=== PATIENT | female | born 1980 | race Caucasian/White ===

== ENCOUNTER 2016-10-03 21:53 | Emergency (ER) | payer MEDICARE, OTHER ==
[2016-10-03] MEDS ORDERED: DIPH,PERTUS(ACELL)TETVAC-LF 0.5 ML VIAL IM ONE (22:18)
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
--- NOTE | 2016-10-03 22:43 | XR ---
RIGHT ANKLE, 3 VIEWS INDICATION: Right ankle pain COMPARISON: None. FINDINGS: AP, mortise, and lateral views of the right ankle are obtained. Bony structures are intact. Bone mineralization is within normal limits. Joint spaces are preserved. Lateral soft tissue swelling. No radio- opaque foreign bodies. IMPRESSION: 1. Lateral soft tissue swelling consistent with ankle sprain. 2. No acute fracture or subluxation identified.
[2016-10-03 23:14] VITALS: BP 116/65; PULSE 77; RESP 18; TEMP 98.7
--- NOTE | 2016-10-05 08:28 | CDI ---
Documentation Clarification OP Dear tere Ny MD, Please do addendum to ED report for splint appication document for ankle sprain. Thank you, sacha fletcher advertising coordinator. if you have any questions,please contact international sales manager at [phone]. [facility]
== END 2016-10-03 23:10 | disposition home or self-care (01) ==
LOC: EC 21:53
DX: S93.401A Sprain of unspecified ligament of right ankle, initial encounter (principal); S80.212A Abrasion, left knee, initial encounter; J45.909 Unspecified asthma, uncomplicated; F43.10 Post-traumatic stress disorder, unspecified; F32.9 Major depressive disorder, single episode, unspecified; F41.9 Anxiety disorder, unspecified; Z23 Encounter for immunization; Z87.891 Personal history of nicotine dependence; Z79.3 Long term (current) use of hormonal contraceptives; Z79.899 Other long term (current) drug therapy; Z88.0 Allergy status to penicillin; Z91.040 Latex allergy status; Z88.5 Allergy status to narcotic agent; Z88.8 Allergy status to other drugs, medicaments and biological substances; X50.9XXA Other and unspecified overexertion or strenuous movements or postures, initial encounter; Y92.410 Unspecified street and highway as the place of occurrence of the external cause
CPT/HCPCS: 90471; 90715; 96374; 99283; 99285

== ENCOUNTER 2017-07-31 21:37 | Emergency (ER) | payer MEDICARE, OTHER ==
--- NOTE | 2017-07-31 23:19 | XR ---
EXAMINATION TYPE: XR chest 2V DATE OF EXAM: 07/31/2017 COMPARISON: 01/11/2015 HISTORY: Cough TECHNIQUE: Frontal and lateral views of the chest are obtained. FINDINGS: Heart and mediastinum are normal. Lungs are clear. Costophrenic angles are clear. Bony tho rax is intact. IMPRESSION: No active cardiopulmonary disease. No change.
[2017-07-31] MEDS ORDERED: IPRATROPIUM-ALBUTEROL 3 ML NEB INHALATION STA (23:28)
[2017-07-31] MEDS ORDERED: CHLORPHEN-HYDROcod 8-10mg/5ml 5 ML ORAL.SYRG PO STA (23:28)
--- NOTE | 2017-07-31 23:31 | ED ---
URI HPI - General Chief Complaint: Upper Respiratory Infection Stated Complaint: cough/congestion Time Seen by Provider: 07/31/17 23:17 Source: patient, RN notes reviewed Mode of arrival: ambulatory Limitations: no limitations - History of Present Illness Initial Comments: 28-year-old female presented emergency Department chief complaint cough congestion. Patient states she's been sick over the last week. Patient went saw primary care physician on the weekend gave her a steroid shot, new asthma inhaler. Patient states that symptoms persist and not improving. Patient denies any known fever. Patient states that she had spiked a fever and chills at home. Patient states that she does have a history of asthma COPD states that she is a smoker states she several days ago. Patient denies any nausea vomiting. Patient denies any sick contacts denies any ear pain headache or dizziness. - Related Data Home Medications Medication Instructions Recorded Confirmed HYDROcodone/APAP 10-325MG [[place] 1 tab PO TID PRN 01/10/15 10/03/16 10-325] Biotin 5 mg PO DAILY 02/21/16 10/03/16 Cetirizine HCl [Zyrtec] 10 mg PO HS 02/21/16 10/03/16 Cholecalciferol [Vitamin D3] 1,000 unit PO DAILY 02/21/16 10/03/16 Flunisolide [Aerospan] 1 puff INHALATION RT-BID PRN 02/21/16 10/03/16 Ipratropium [place] [Atrovent Hfa] 1 puff INHALATION RT-BID PRN 02/21/16 Montelukast [Singulair] 10 mg PO DAILY 02/21/16 10/03/16 Pnv,Calcium 72/Iron/Folic Acid 1 tab PO DAILY 02/21/16 10/03/16 [ Plus Tablet] Gabapentin [Neurontin] 400 mg PO BID 10/03/16 10/03/16 Sertraline [Zoloft] 100 mg PO HS 10/03/16 10/03/16 busPIRone HCl [Buspar] 10 mg PO BID 10/03/16 10/03/16 Previous Rx's Medication Instructions Recorded Albuterol Inhaler [Ventolin Hfa 1 - 2 puff INHALATION RT-Q6H PRN #1 01/15/15 Inhaler] CHLORPHEN-HYDROcod 8-10mg/5ml 5 ml PO Q12HR #100 ml 08/01/17 [Tussionex] predniSONE 50 mg PO DAILY #5 tab 08/01/17 Allergies Allergy/AdvReac Type Severity Reaction Status Date / Time amitriptyline HCl Allergy ANXIETY Verified 07/31/17 22:16 [From Elavil] amoxicillin Allergy Rash/Hives Verified 07/31/17 22:16 latex Allergy Rash/Hives Verified 07/31/17 22:16 codeine AdvReac Chest Pain Verified 07/31/17 22:16 Review of Systems ROS Statement: Those systems with pertinent positive or pertinent negative responses have been documented in the HPI. ROS Other: All systems not noted in ROS Statement are negative. Past Medical History Past Medical History: Asthma, COPD History of Any Multi-Drug Resistant Organisms: MRSA Date of last positivie culture/infection: 2007 MDRO Source:: ears Past Surgical History: Orthopedic Surgery, Tonsillectomy Additional Past Surgical History / Comment(s): right ankle sx x 2, deviated septum procedure Past Anesthesia/Blood Transfusion Reactions: No Reported Reaction Past Psychological History: Anxiety, Depression, PTSD Smoking Status: Former smoker Past Alcohol Use History: None Reported Past Drug Use History: None Reported - Past Family History Sister(s) Family Medical History: Asthma Father Family Medical History: Congestive Heart Failure (CHF) General Exam Limitations: no limitations General appearance: alert, in no apparent distress Head exam: Present: atraumatic, normocephalic, normal inspection Eye exam: Present: normal appearance, PERRL, EOMI. Absent: scleral icterus, conjunctival injection, periorbital swelling ENT exam: Present: normal exam, normal oropharynx, mucous membranes moist, TM's normal bilaterally, normal external ear exam Neck exam: Present: normal inspection, full ROM. Absent: tenderness, meningismus, lymphadenopathy Respiratory exam: Present: normal lung sounds bilaterally. Absent: respiratory distress, wheezes, rales, rhonchi, stridor Cardiovascular Exam: Present: regular rate, normal rhythm, normal heart sounds. Absent: systolic murmur, diastolic murmur, rubs, gallop, clicks GI/Abdominal exam: Present: soft, normal bowel sounds. Absent: distended, tenderness, guarding, rebound, rigid Course Vital Signs 04/10/18 04/10/18 04/10/18 22:11 23:26 23:35 Temperature 98.4 F Pulse Rate 89 88 Respiratory 20 20 Rate Blood Pressure 135/81 O2 Sat by Pulse 97 Oximetry Medical Decision Making - Medical Decision Making 36-year-old female presented for cough congestion. Patient has a restaurant infection with acute asthma exacerbation. Patient is stable for discharge that she be given Solu-Medrol nausea be discharged on prednisone 50 mg for 5 days and cough suppressant. Patient will follow-up for recheck and return for any worsening symptoms. - Lab Data Lab Results 07/31/17 Range/Units 23:20 Influenza Type A RNA Not Detected (Not Detectd) Influenza Type B (PCR) Not Detected (Not Detectd) Disposition Clinical Impression: Asthmatic bronchitis, Costochondritis, acute Disposition: HOME SELF-CARE Condition: Stable Instructions: Upper Respiratory Infection (ED) Additional Instructions: Please return to the Emergency Department if symptoms worsen or any other concerns. Prescriptions: CHLORPHEN-HYDROcod 8-10mg/5ml [Tussionex] 5 ml PO Q12HR #100 ml predniSONE 50 mg PO DAILY #5 tab Referrals: Raegan Herr DO [Primary Care Provider] - 1-2 days Time of Disposition: 00:02
[2017-08-01] MEDS ORDERED: methylPREDNISolone SOD SUCCI 125 MG/2 ML VIAL IM ONE
[2017-08-01 00:41] VITALS: BP 132/78; PULSE 92; RESP 18; TEMP 98.6
== END 2017-08-01 00:39 | disposition home or self-care (01) ==
LOC: EC 21:37
DX: M94.0 Chondrocostal junction syndrome [Tietze] (principal); J45.901 Unspecified asthma with (acute) exacerbation; R11.0 Nausea; F41.9 Anxiety disorder, unspecified; F32.9 Major depressive disorder, single episode, unspecified; F43.10 Post-traumatic stress disorder, unspecified; Z86.14 Personal history of Methicillin resistant Staphylococcus aureus infection; Z82.5 Family history of asthma and other chronic lower respiratory diseases; Z86.79 Personal history of other diseases of the circulatory system; Z87.891 Personal history of nicotine dependence; Z88.0 Allergy status to penicillin; Z88.5 Allergy status to narcotic agent; Z88.8 Allergy status to other drugs, medicaments and biological substances; Z79.899 Other long term (current) drug therapy; Z91.040 Latex allergy status; Z98.890 Other specified postprocedural states
CPT/HCPCS: 94640; 93005; 87502; 71046; 99284; 96372; J2930

== ENCOUNTER → 2017-09-21 | Outpatient (CLI) | payer MEDICARE, OTHER ==
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
== END ==
LOC: RADMRIMAIN 20:13
PROVIDERS: ATTEND Psychiatry & Neurology Pain Medicine
DX: M48.061 Spinal stenosis, lumbar region without neurogenic claudication (principal); M51.36 Other intervertebral disc degeneration, lumbar region; M51.26 Other intervertebral disc displacement, lumbar region; M51.37 Other intervertebral disc degeneration, lumbosacral region; Z88.5 Allergy status to narcotic agent; Z88.0 Allergy status to penicillin; Z88.8 Allergy status to other drugs, medicaments and biological substances
CPT/HCPCS: 72148

== ENCOUNTER → 2017-10-19 | Outpatient (CLI) | payer MEDICARE, OTHER ==
--- NOTE | 2017-10-22 07:48 | MM ---
Reason for exam: clinical finding. History: Took hormonal contraceptives beginning at age 11. Indicated problem(s): pain in both breasts. Physical Findings: Nurse did not find any significant physical abnormalities on exam. MG 3D Diag Mammo W/Cad DONNA Bilateral CC and MLO view(s) were taken. The breast tissue is heterogeneously dense. This may lower the sensitivity of mammography. Finding: There are typically benign round calcifications in the left breast. There is no discrete abnormality. These results were verbally communicated with the patient and result sheet given to the patient on 10/19/17. ASSESSMENT: Benign, BI-RAD 2 RECOMMENDATION: Routine screening mammogram of both breasts in 1 year.
== END | disposition home or self-care (01) ==
LOC: RADMAMWWP 13:43
PROVIDERS: ATTEND Family Medicine
DX: N64.4 Mastodynia (principal)
CPT/HCPCS: 77066; G0279; 77062

== ENCOUNTER 2018-03-28 18:18 | Emergency (ER) | payer MEDICARE, OTHER ==
[2018-03-28 18:28] VITALS: RESP 16
--- NOTE | 2018-03-28 19:44 | ED ---
General Adult HPI - General Chief complaint: Recheck/Abnormal Lab/Rx Stated complaint: POSS , SENT BY MED EX Source: patient, RN notes reviewed, old records reviewed Mode of arrival: ambulatory Limitations: no limitations - History of Present Illness Initial comments: 37-year-old female patient with no pertinent past medical history presents to ED for test. Patient states that she took 7 tests at home which are positive, [facility] took to test which are negative. Patient presents to ED to confirm . Patient denies all other complaints. Patient denies abdominal pain, nausea vomiting diarrhea, vaginal discharge, vaginal bleeding, shortness of breath, chest pain. Patient denies recent falls or trauma. Systemic: Pt denies fatigue, myalgia, fever/chills, rash. Pt denies weakness, night sweats, weight loss. Neuro: Pt denies headache, visual disturbances, syncope or pre-syncope. HEENT: Pt denies ocular discharge or irritation, otalgia, rhinorrhea, pharyngitis or notable lymphadenopathy. Cardiopulmonary: Pt denies chest pain, SOB, heart palpitations, dyspnea on exertion. Abdominal/GI: Pt denies abdominal pain, n/v/d. : Pt denies dysuria, burning w/ urination, frequency/urgency. Denies new onset urinary or bowel incontinence. MSK: Pt denies myalgia, loss of strength or function in extremities. Neuro: Pt denies new onset weakness, paresthesias. - Related Data Home Medications Medication Instructions Recorded Confirmed HYDROcodone/APAP 10-325MG [[place] 1 tab PO TID PRN 01/10/15 10/03/16 10-325] Biotin 5 mg PO DAILY 02/21/16 10/03/16 Cetirizine HCl [Zyrtec] 10 mg PO HS 02/21/16 10/03/16 Cholecalciferol [Vitamin D3] 1,000 unit PO DAILY 02/21/16 10/03/16 Flunisolide [Aerospan] 1 puff INHALATION RT-BID PRN 02/21/16 10/03/16 Ipratropium [place] [Atrovent Hfa] 1 puff INHALATION RT-BID PRN 02/21/16 Montelukast [Singulair] 10 mg PO DAILY 02/21/16 10/03/16 Pnv,Calcium 72/Iron/Folic Acid 1 tab PO DAILY 02/21/16 10/03/16 [ Plus Tablet] Gabapentin [Neurontin] 400 mg PO BID 10/03/16 10/03/16 Sertraline [Zoloft] 100 mg PO HS 10/03/16 10/03/16 busPIRone HCl [Buspar] 10 mg PO BID 10/03/16 10/03/16 Previous Rx's Medication Instructions Recorded Albuterol Inhaler [Ventolin Hfa 1 - 2 puff INHALATION RT-Q6H PRN #1 01/15/15 Inhaler] CHLORPHEN-HYDROcod 8-10mg/5ml 5 ml PO Q12HR #100 ml 08/01/17 [Tussionex] predniSONE 50 mg PO DAILY #5 tab 08/01/17 Allergies Allergy/AdvReac Type Severity Reaction Status Date / Time amitriptyline HCl Allergy ANXIETY Verified 03/28/18 18:28 [From Elavil] amoxicillin Allergy Rash/Hives Verified 03/28/18 18:28 latex Allergy Rash/Hives Verified 03/28/18 18:28 codeine AdvReac Chest Pain Verified 03/28/18 18:28 Review of Systems ROS Statement: Those systems with pertinent positive or pertinent negative responses have been documented in the HPI. ROS Other: All systems not noted in ROS Statement are negative. Past Medical History Past Medical History: Asthma, COPD History of Any Multi-Drug Resistant Organisms: MRSA Date of last positivie culture/infection: 2007 MDRO Source:: ears Past Surgical History: Orthopedic Surgery, Tonsillectomy Additional Past Surgical History / Comment(s): right ankle sx x 2, deviated septum procedure Past Anesthesia/Blood Transfusion Reactions: No Reported Reaction Past Psychological History: Anxiety, Depression, PTSD Smoking Status: Former smoker Past Alcohol Use History: None Reported Past Drug Use History: None Reported - Past Family History Sister(s) Family Medical History: Asthma Father Family Medical History: Congestive Heart Failure (CHF) General Exam - General Exam Comments Initial Comments: Constitutional: NAD, AOX3, Pt has pleasant affect. HEENT: NC/AT, trachea midline, neck supple, no lymphadenopathy. Posterior pharynx non erythematous, without exudates. External ears appear normal, without discharge. Mucous membranes moist. Eyes PERRLA, EOM intact. There is no scleral icterus. No pallor noted. Cardiopulmonary: RRR, no murmurs, rubs or gallops, no JVD noted. Lungs CTAB in anterior and posterior lay. No peripheral edema. Abdominal exam: Abdomen soft and non-distended. Abdomen non-tender to palpation in all 4 quadrants. Bowel sounds active in LLQ. No hepatosplenomegaly. No ecchymosis Neuro: CN II-XII grossly intact. No nuchal rigidity. MSK: No posterior calf tenderness bilaterally, homans sign negative bilaterally. Posterior tibialis and radial pulse +2 bilaterally. Limitations: no limitations Course Vital Signs 03/28/18 03/28/18 18:25 20:23 Temperature 98.3 F 97.9 F Pulse Rate 109 H 85 Respiratory 16 16 Rate Blood Pressure 148/83 138/72 O2 Sat by Pulse 98 97 Oximetry Medical Decision Making - Medical Decision Making 37-year-old female patient presents to ED for test. Patient other complaints. Physical exam did not reveal any acute pathology. UA and hCG confirmed , patient does not have any UTI. Patient states that she has an OB that she can follow-up with. Patient to follow up with PCP in 1-2 days. Patient to return to ED if any new signs or symptoms develop including abdominal pain, nausea vomiting diarrhea, fever or chills, vaginal bleeding, vaginal discharge, any other symptoms. Case discussed with Dr. Rao. - Lab Data Lab Results 03/28/18 03/28/18 Range/Units 18:43 18:43 Urine Color Yellow Urine Appearance Clear (Clear) Urine pH 5.5 (5.0-8.0) Ur Specific [place] 1.014 (1.001-1.035) Urine Protein Trace H (Negative) Urine Glucose (UA) Negative (Negative) Urine Ketones 1+ H (Negative) Urine Blood Negative (Negative) Urine Nitrite Negative (Negative) Urine Bilirubin Negative (Negative) Urine Urobilinogen <2.0 (<2.0) mg/dL Ur Leukocyte Esterase Trace H (Negative) Urine RBC 1 (0-5) /hpf Urine WBC 1 (0-5) /hpf Ur Squamous Epith Cells 2 (0-4) /hpf Urine Bacteria Rare H (None) /hpf Urine HCG, Qual Detected (Not Detectd) Disposition Clinical Impression: Disposition: HOME SELF-CARE Condition: Good Instructions: (ED) Additional Instructions: Patient to adhere to previously discussed treatment plan and will take medication(s) as directed. Patient to follow up with PCP in 1-2 days. Patient to return to ED if symptoms do not improve. Is patient prescribed a controlled substance at d/c from ED?: No Referrals: Raegan Herr DO [Primary Care Provider] - 1-2 days Time of Disposition: 20:14
[2018-03-28 19:52] LABS: Appearance,Urine Clear (Clear); Bacteria,Urine Rare /hpf; Bilirubin,Urine Negative (Negative); Blood,Urine Negative (Negative); Color,Urine Yellow; Glucose,Urine (UA) Negative (Negative); Ketones,Urine 1+ (Negative); Leukocyte Esterase,Urine Trace (Negative); Nitrite,Urine Negative (Negative); PH, Urine 5.5 (5.0-8.0); Protein,Urine Trace (Negative); RBC,Urine 1 /hpf (0-5); Specific Gravity,Urine 1.014 (1.001-1.035); Squamous Epithelial Cell,Urine 2 /hpf (0-4); Urobilinogen,Urine <2.0 mg/dL (<2.0)
[2018-03-28 20:23] VITALS: BP 138/72; PULSE 85; TEMP 97.9
== END 2018-03-28 20:23 | disposition home or self-care (01) ==
LOC: EC 18:18
DX: Z32.01 Encounter for pregnancy test, result positive (principal); J44.9 Chronic obstructive pulmonary disease, unspecified; F32.9 Major depressive disorder, single episode, unspecified; F41.9 Anxiety disorder, unspecified; F43.10 Post-traumatic stress disorder, unspecified; Z86.14 Personal history of Methicillin resistant Staphylococcus aureus infection; Z87.891 Personal history of nicotine dependence; Z79.899 Other long term (current) drug therapy; Z88.0 Allergy status to penicillin; Z88.5 Allergy status to narcotic agent; Z88.8 Allergy status to other drugs, medicaments and biological substances; Z91.040 Latex allergy status
CPT/HCPCS: 81001; 81025; 99282

== ENCOUNTER 2018-11-11 15:24 | Outpatient (CLI) | payer MEDICARE, OTHER ==
[2018-11-11] MEDS ORDERED: ACETAMINOPHEN TAB 325 MG TAB PO STA (16:05)
[2018-11-11 16:27] VITALS: BP 111/62; PULSE 82; RESP 16; TEMP 97.7
[2018-11-11 16:28] LABS: Appearance,Urine Clear (Clear); Bacteria,Urine Occasional /hpf; Bilirubin,Urine Negative (Negative); Blood,Urine Negative (Negative); Color,Urine Yellow; Glucose,Urine (UA) Negative (Negative); Ketones,Urine Negative (Negative); Leukocyte Esterase,Urine Moderate (Negative); Mucus,Urine Rare /hpf; Nitrite,Urine Negative (Negative); PH, Urine 6.5 (5.0-8.0); Protein,Urine Negative (Negative); RBC,Urine 1 /hpf (0-5); Specific Gravity,Urine 1.009 (1.001-1.035); Squamous Epithelial Cell,Urine 2 /hpf (0-4); Urobilinogen,Urine <2.0 mg/dL (<2.0)
--- NOTE | 2018-12-08 11:23 | P.MSEPDOC ---
Presenting Problems - Arrival Data Date of Arrival on Unit: 11/11/18 Time of Arrival on Unit: 15:24 Mode of Transport: Ambulatory - Complaint OB-Reason for Admission/Chief Complaint: Pain Comment: lower back pain, constant for 1 day, general malaise Medical History - Information : 3 Para: 2 Term: 2 : 0 Abortions: Spontaneous or Elective: 0 Number of Living Children: 1 - Gestational Age Gestational Age by SRIDHAR (wks/days): 36 Weeks and 4 Days Review of Systems - Review of Systems Constitutional: No problems Breast: No problems ENT: No problems Cardiovascular: No problems Respiratory: No problems Gastrointestinal: No problems Genitourinary: No problems Musculoskeletal: No problems Neurological: No problems Skin: No problems Vital Signs - Temperature Temperature: 97.7 F Temperature Source: Temporal Artery Scan - Pulse Right Brachial Pulse Rate: 82 Pulse Assessment Method: Automatic Cuff - Respirations Respiratory Rate: 16 Oxygen Delivery Method: Room Air O2 Sat by Pulse Oximetry: 96 - Blood Pressure Right Arm Sitting Blood Pressure: 111/62 Blood Pressure Mean: 78 Blood Pressure Source: Automatic Cuff Medical Screen Scoring (Pre) - Cervical Exam Dilation: 1-3 cm = 1 Effacement: More than 50% = 2 Membranes: Intact - Uterine Contractions Frequency: N/A Duration: N/A Intensity: N/A - Maternal Vital Signs Maternal Temperature: N/A Signs of Preeclampsia: N/A, Headache = 1 Maternal Respirations: N/A - Maternal Trauma Maternal Trauma: N/A - Assessment - Baby A Baseline FHR: 130 Heart Rate - NICHD Category: Category I (Normal) = 0 NST: Reactive Position: N/A Station: N/A - Total Score - Baby A Total Score - Baby A: 4 - Total Score - Baby B Total Score - Baby B: 4 - Total Score - Baby C Total Score - Baby C: 4 - Level of Risk - Baby A Level of Risk - Baby A: Low (0-5) - Level of Risk - Baby B Level of Risk - Baby B: Low (0-5) - Level of Risk - Baby C Level of Risk - Baby C: Low (0-5) Medical Screen Scoring (Post) - Uterine Contractions Frequency: N/A - Assessment - Baby A Heart Rate: 120 Heart Rate - NICHD Category: Category I (Normal) = 0 NST: Reactive Position: N/A Station: N/A - Total Score Total Score - Baby A: 0 Total Score - Baby B: 0 Total Score - Baby C: 0 - Post Treatment Level of Risk Post Treatment Level of Risk - Baby A: Low (0-5) Post Treatment Level of Risk - Baby B: Low (0-5) Post Treatment Level of Risk - Baby C: Low (0-5) Physician Notification (Post) - Physician Notified Physician Notified Date: 11/11/18 Physician Notified Time: 17:11 Spoke With: Codey New Order Received: Yes (d/c with antibiotic) - Notification Comment Comment: sent UA, possible UTI, escribe abx to [facility] pharmacy,pt discharged, has routine appt tomorrow Disposition - Disposition OB Disposition: Discharge to home, Written follow up instructions reviewed Discharge Date: 11/11/18 Discharge Time: 17:15 I agree with the RN Medical Screening Exam: Yes Risk & Benefit of care provided described in d/c instruction: Yes Diagnosis: URINARY TRACT INFECTION, SITE NOT SPECIFIED
== END 2018-11-11 17:15 | disposition home or self-care (01) ==
LOC: FBPOP 15:24
PROVIDERS: ATTEND Obstetrics & Gynecology
DX: O23.43 Unspecified infection of urinary tract in pregnancy, third trimester (principal); Z3A.36 36 weeks gestation of pregnancy
CPT/HCPCS: 59025; 81001; G0463; 99213

== ENCOUNTER 2018-12-03 06:06 | Inpatient (IN) | payer MEDICARE, OTHER ==
[2018-12-03] MEDS ORDERED: METHYLERGONOVINE 0.2 MG/ML 1 ML AMP IM PRN (06:22)
[2018-12-03] MEDS ORDERED: CARBOPROST TROMETHAMINE 250 MCG/ML 1 ML AMP IM PRN (06:22)
[2018-12-03] MEDS ORDERED: TERBUTALINE 1 MG/ML VIAL SQ PRN (06:22)
[2018-12-03] MEDS ORDERED: OXYTOCIN 10 UNIT/ML 1 ML VIAL IM PRN (06:22)
[2018-12-03] MEDS ORDERED: LIDOCAINE 0.5% (PF) 5 MG/ML (50 ML SDV) SQ PRN (06:22)
[2018-12-03] MEDS ORDERED: OXYTOCIN 30 UNITS/500 ML NS 30 UNIT in SALINE 1 500ML.BAG IV SCH (06:30)
[2018-12-03] MEDS ORDERED: LACTATED RINGERS 1,000 ML IV SCH (06:30)
[2018-12-03 06:44] VITALS: BMI 31.5
[2018-12-03 06:50] LABS: Basophils % (A) 0 %; Eosinophils # (A) 0.2 k/uL (0-0.7); Eosinophils % (A) 2 %; HCT 33.6 % (34.0-46.0); HGB 11.1 gm/dL (11.4-16.0); Lymphocytes # (A) 2.4 k/uL (1.0-4.8); Lymphocytes % (A) 25 %; MCH 29.1 pg (25.0-35.0); MCHC 32.9 g/dL (31.0-37.0); MCV 88.4 fL (80.0-100.0); Mean Platelet Volume 10.3; Monocytes # (A) 0.4 k/uL (0-1.0); Monocytes % (A) 4 %; Neutrophils # (A) 6.2 k/uL (1.3-7.7); Neutrophils % (A) 66 %; Platelet Count 181 k/uL (150-450); RDW 15.6 % (11.5-15.5); WBC 9.3 k/uL (3.8-10.6)
[2018-12-03] MEDS ORDERED: CLINDAMYCIN 900 MG in DEXTROSE 5% IN WATER 50 ML IVPB STA ×2 (06:59)
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
--- NOTE | 2018-12-03 10:32 | P.PROBDLV ---
Vaginal Delivery Note - . Vaginal Delivery Note: Findings: Male infant in the vertex right occiput anterior position with Apgars of 9 at 1 minute and 9 at 5 minutes. Weight pending. Intact, three-vessel cord placenta. No perineal lacerations. EBL 150 mL's. Delivery summary: This is a 38-year-old 3 para 2012 woman who was admitted at 39-4/7 weeks' gestation with advanced cervical dilation not in active labor. Pitocin induction of labor was initiated and she underwent artificial rupture of membranes. She was approximately 5-1/2 cm at 8 AM. She progressed rapidly to complete cervical dilation by approximately 10:15 AM. She had strong and uncontrollable urge to push. She was repositioned in the m odified Lelia position with the bed intact as she was pushing. She did push to from the right occiput anterior position. The anterior followed by the posterior shoulders were delivered without difficulty. The rest the infant was delivered onto the field. The nose and mouth were bulb suctioned and the was placed on the maternal abdomen. On after a slight delay the cord was clamped and cut. Apgars were 9 at 1 minute and 9 at 5 minutes. The perineum vagina and cervix were inspected and no lacerations were noted after delivery of an intact, three-vessel cord placenta. The third stage of labor was rapid approximately 2 minutes. The uterus was massaged and was noted to be firm at the level of the umbilicus. The patient received Pitocin following delivery of the placenta. All counts were correct and mother and were doing well post delivery in the room.
[2018-12-03] MEDS ORDERED: ZOLPIDEM 5 MG TAB PO PRN (10:33)
[2018-12-03] MEDS ORDERED: diphenhydrAMINE 50 MG/ML 1 ML VIAL IVP PRN ×2 (10:33)
[2018-12-03] MEDS ORDERED: diphenhydrAMINE 25 MG CAP PO PRN (10:33)
[2018-12-03] MEDS ORDERED: WITCH HAZEL 1 EACH MED..PAD TOPICAL PRN (10:33)
[2018-12-03] MEDS ORDERED: HYDROCORTISONE 2.5% RECTAL CREAM 30 GM TUBE RECTAL PRN (10:33)
[2018-12-03] MEDS ORDERED: SIMETHICONE 80 MG CHEWABLE PO PRN (10:33)
[2018-12-03] MEDS ORDERED: LANOLIN CREAM 5 GM TUBE TOPICAL PRN (10:33)
[2018-12-03] MEDS ORDERED: diphenhydrAMINE 50 MG CAP PO PRN (10:33)
[2018-12-03] MEDS ORDERED: BENZOCAINE/MENTHOL SPRAY 1 GM/SPRAY AEROSOL TOPICAL PRN (10:33)
[2018-12-03] MEDS ORDERED: OXYTOCIN 20 UNITS/1000 ML NS 1,000 ML IV SCH (10:45)
[2018-12-03] MEDS: IBUPROFEN 600 MG TAB PO PRN ×2 (14:12→19:59)
[2018-12-04] MEDS: SENNOSIDES-DOCUSATE SODIUM 1 EACH TAB PO SCH ×2 (03:31→21:16)
[2018-12-04] MEDS: CLINDAMYCIN 900 MG in DEXTROSE 5% IN WATER 50 ML IVPB SCH ×2 (03:31)
--- NOTE | 2018-12-04 07:43 | P.PNOBGVD ---
Subjective - Subjective Principal diagnosis: day 1 Interval history: Feeling very well, minimal lochia. Patient reports: Reports appetite normal, Reports voiding normally, Reports pain well controlled, Reports ambulating normally, Denies nauseated : doing well, nursing well Objective - Latest Vital Signs Latest vital signs: Vital Signs Temp Pulse Resp BP Pulse Ox 12/04/18 04:00 98.2 F 75 16 101/70 12/04/18 00:00 96.7 F L 71 16 91/52 12/03/18 20:00 98.4 F 75 16 109/72 12/03/18 16:00 98.4 F 82 18 118/69 95 12/03/18 12:32 73 18 117/72 12/03/18 12:02 75 18 115/68 12/03/18 12:00 75 18 115/68 12/03/18 11:32 71 18 124/71 12/03/18 11:17 71 20 125/64 12/03/18 11:02 77 18 115/58 12/03/18 10:47 91 18 144/77 12/03/18 10:32 98.2 F 81 18 121/65 96 - Exam Extremities: Present: normal, edema Abdomen: Present: normal appearance, soft. Absent: tenderness Uterus: Present: normal, firm Assessment and Plan (1) 39 weeks gestation of Current Visit: Yes Status: Acute Code(s): Z3A.39 - 39 WEEKS GESTATION OF SNOMED Code(s): 51382331 (2) Advanced maternal age (AMA) in Current Visit: Yes Status: Acute Code(s): FNH4009 - SNOMED Code(s): 054290978 (3) GBS (group B Streptococcus carrier), +RV culture, currently Current Visit: Yes Status: Acute Code(s): O99.820 - STREPTOCOCCUS B CARRIER STATE COMPLICATING SNOMED Code(s): 5299849271008 (4) Tobacco abuse Current Visit: Yes Status: Acute Code(s): Z72.0 - TOBACCO USE SNOMED Code(s): 846320049 (5) Asthma Current Visit: Yes Status: Acute Code(s): J45.909 - UNSPECIFIED ASTHMA, UNCOMPLICATED SNOMED Code(s): 281986466 (6) Normal spontaneous vaginal delivery Current Visit: Yes Status: Acute Code(s): O80 - ENCOUNTER FOR FULL-TERM UNCOMPLICATED DELIVERY SNOMED Code(s): 08540463 Plan: day #1 status post normal spontaneous vaginal delivery. Patient is recovering well. Anticipate discharge home tomorrow. Infant is being monitored for maternal group B strep status positive for 48 hours.
[2018-12-04] MEDS: IBUPROFEN 600 MG TAB PO PRN ×3 (07:48→23:03)
[2018-12-04 08:31] LABS: Anisocytosis Slight; Basophils % (A) 0 %; Eosinophils # (A) 0.2 k/uL (0-0.7); Eosinophils % (A) 2 %; Hypochromasia Slight; Lymphocytes # (A) 2.3 k/uL (1.0-4.8); Lymphocytes % (A) 23 %; MCHC 32.3 g/dL (31.0-37.0); MCV 89.8 fL (80.0-100.0); Mean Platelet Volume 10.3; Monocytes # (A) 0.3 k/uL (0-1.0); Monocytes % (A) 3 %; Neutrophils # (A) 6.9 k/uL (1.3-7.7); Neutrophils % (A) 70 %; Platelet Count 193 k/uL (150-450); RBC 3.23 m/uL (3.80-5.40); WBC 9.9 k/uL (3.8-10.6)
[2018-12-04 08:40] LABS: HGB 9.4 gm/dL (11.4-16.0)
[2018-12-05] MEDS: ACETAMINOPHEN TAB 325 MG TAB PO PRN ×3 (03:44→16:46)
--- NOTE | 2018-12-05 08:25 | P.DS ---
Providers Date of admission: 12/03/18 06:06 Expected date of discharge: 12/05/18 Attending physician: Susan Alegre Primary care physician: Stated None - Discharge Diagnosis(es) (1) 39 weeks gestation of Current Visit: Yes Status: Acute (2) Advanced maternal age (AMA) in Current Visit: Yes Status: Acute (3) GBS (group B Streptococcus carrier), +RV culture, currently Current Visit: Yes Status: Acute (4) Tobacco abuse Current Visit: Yes Status: Acute (5) Asthma Current Visit: Yes Status: Acute (6) Normal spontaneous vaginal delivery Current Visit: Yes Status: Acute Hospital Course: This is a 38-year-old 3 now para 3 woman who was admitted at 39+ weeks gestation with advanced cervical dilation for induction of labor. On admission she was 5+ centimeters dilated and underwent Pitocin induction of labor with artificial rupture of membranes. She had a rapid progression to complete cervical dilation and an uncomplicated delivery of a liveborn male weighing 8 lbs. 7 oz. over an intact perineum. Apgars were 9 at 1 minute and 9 at 5 minutes. Patient was group B strep positive and did receive a single dose of antibiotics during her fast labor. The her post course was unremarkable. By day #1 she was ambulating and voiding without difficulty. Her vital signs were stable. Her labs were within normal limits and her lochia was minimal. She is breast-feeding successfully. By day #2 she continued to do well and was stable for discharge. The had elevated bilirubin levels and was being treated actively for jaundice therefore was not discharged home with mother. Routine instructions for care and follow-up were reviewed. Plan - Discharge Summary New Discharge Prescriptions: New Ibuprofen [Motrin] 600 mg PO Q6HR PRN tab PRN Reason: Mild Pain Or Fever >= 100.5 No Action Albuterol Inhaler [Ventolin Hfa Inhaler] 1 - 2 puff INHALATION RT-Q6H PRN #1 PRN Reason: Shortness Of Breath Pnv,Calcium 72/Iron/Folic Acid [ Plus Tablet] 1 tab PO DAILY Umeclidinium [place] [Incruse Ellipta] 62.5 mcg IN DAILY Discharge Medication List Albuterol Inhaler [Ventolin Hfa Inhaler] 1 - 2 puff INHALATION RT-Q6H PRN #1 01/15/15 [Rx] Pnv,Calcium 72/Iron/Folic Acid [ Plus Tablet] 1 tab PO DAILY 02/21/16 [History] Umeclidinium [place] [Incruse Ellipta] 62.5 mcg IN DAILY 11/11/18 [History] Ibuprofen [Motrin] 600 mg PO Q6HR PRN tab 12/05/18 [Rx] Follow up Appointment(s)/Referral(s): Susan Alegre MD [STAFF PHYSICIAN] - 6 Weeks Activity/Diet/Wound Care/Special Instructions: Follow-up in the office in 6 weeks . Call with any concerning signs or symptoms including heavy vaginal bleeding, severe abdominal pain, fever greater than 101, swelling or redness of the lower extremities, foul vaginal discharge, or signs of depression. Nothing in the vagina for 6 weeks after delivery, specifically no intercourse. Discharge Disposition: HOME SELF-CARE
[2018-12-05 09:28] VITALS: BP 112/89; PULSE 82
[2018-12-05 16:54] VITALS: RESP 18; TEMP 97.7
[2018-12-05] MEDS: SENNOSIDES-DOCUSATE SODIUM 1 EACH TAB PO SCH (16:54)
== END 2018-12-05 19:40 | disposition home or self-care (01) | DRG 807 ==
LOC: 4FBP 06:06
PROVIDERS: ADMIT Obstetrics & Gynecology; ATTEND Obstetrics & Gynecology
PROC: 10E0XZZ Delivery of Products of Conception, External Approach (ICD-10-PCS; principal; 2018-12-03)
PROC: 10907ZC Drainage of Amniotic Fluid, Therapeutic from Products of Conception, Via Natural or Artificial Opening (ICD-10-PCS; 2018-12-03)
PROC: 3E033VJ Introduction of Other Hormone into Peripheral Vein, Percutaneous Approach (ICD-10-PCS; 2018-12-03)
DX: O99.824 Streptococcus B carrier state complicating childbirth (principal); Z37.0 Single live birth; O99.52 Diseases of the respiratory system complicating childbirth; O99.334 Smoking (tobacco) complicating childbirth; O99.344 Other mental disorders complicating childbirth; J44.9 Chronic obstructive pulmonary disease, unspecified; F32.9 Major depressive disorder, single episode, unspecified; F43.10 Post-traumatic stress disorder, unspecified; F41.9 Anxiety disorder, unspecified; F17.200 Nicotine dependence, unspecified, uncomplicated; Z3A.39 39 weeks gestation of pregnancy; Z88.5 Allergy status to narcotic agent; Z88.0 Allergy status to penicillin; Z88.8 Allergy status to other drugs, medicaments and biological substances; Z91.040 Latex allergy status; Z79.899 Other long term (current) drug therapy; Z86.14 Personal history of Methicillin resistant Staphylococcus aureus infection; Z82.49 Family history of ischemic heart disease and other diseases of the circulatory system; Z82.5 Family history of asthma and other chronic lower respiratory diseases
CPT/HCPCS: 85025; 86850; 86900; 86901

== ENCOUNTER 2019-11-23 17:28 | Emergency (ER) | payer MEDICARE, OTHER ==
[2019-11-23 17:32] VITALS: RESP 18
[2019-11-23] MEDS ORDERED: LIDOCAINE 1% INJ 10MG/ML (20 ML MDV) SQ ONE (17:41)
--- NOTE | 2019-11-23 17:45 | ED ---
Upper Extremity HPI - General Chief Complaint: Extremity Injury, Upper Stated Complaint: Fell on rt elbow Time Seen by Provider: 11/23/19 17:33 Source: patient Mode of arrival: ambulatory Limitations: no limitations - History of Present Illness Initial Comments: Patient is a 39-year-old female presenting to the emergency department with chief complaint of elbow pain. Patient states she was cleaning her camper, slipped on the wet ground and landed on her right elbow. Patient reports the pain is mostly located on the olecranon along with a small laceration region. Patient reports that there was initial bleeding which has since resolved. He states she is not on blood thinners. He states her tetanus is up-to-date. Denies any numbness or tingling. States she has full range of motion in the right upper extremity. States this occurred about 2 hours prior to arrival. - Related Data Home Medications Medication Instructions Recorded Confirmed Pnv,Calcium 72/Iron/Folic Acid 1 tab PO DAILY 02/21/16 12/03/18 [ Plus Tablet] Umeclidinium [place] [Incruse 62.5 mcg IN DAILY 11/11/18 12/03/18 Ellipta] Previous Rx's Medication Instructions Recorded Albuterol Inhaler (Mhu) [Ventolin 1 - 2 puff INHALATION RT-Q6H PRN #1 01/15/15 Hfa Inhaler (Mhu)] Ibuprofen [Motrin] 600 mg PO Q6HR PRN tab 12/05/18 Allergies Allergy/AdvReac Type Severity Reaction Status Date / Time amitriptyline HCl Allergy ANXIETY Verified 11/23/19 17:32 [From Elavil] amoxicillin Allergy Rash/Hives Verified 11/23/19 17:32 latex Allergy Rash/Hives Verified 11/23/19 17:32 codeine AdvReac Chest Pain Verified 11/23/19 17:32 Review of Systems ROS Statement: Those systems with pertinent positive or pertinent negative responses have been documented in the HPI. ROS Other: All systems not noted in ROS Statement are negative. Past Medical History Past Medical History: Asthma, COPD Additional Past Medical History / Comment(s): 2002, 2010 History of Any Multi-Drug Resistant Organisms: MRSA Date of last positivie culture/infection: 2007 MDRO Source:: ears Past Surgical History: Orthopedic Surgery, Tonsillectomy Additional Past Surgical History / Comment(s): right ankle sx x 2, deviated septum procedure Past Anesthesia/Blood Transfusion Reactions: No Reported Reaction Past Psychological History: Anxiety, Depression, PTSD Smoking Status: Current every day smoker Past Alcohol Use History: None Reported Past Drug Use History: None Reported - Past Family History Sister(s) Family Medical History: Asthma Father Family Medical History: Congestive Heart Failure (CHF) General Exam Limitations: no limitations General appearance: alert, in no apparent distress Head exam: Present: atraumatic, normocephalic, normal inspection Eye exam: Present: normal appearance, PERRL, EOMI Pupils: Present: normal accommodation ENT exam: Present: normal exam, normal oropharynx, mucous membranes moist, TM's normal bilaterally, normal external ear exam Neck exam: Present: normal inspection, full ROM. Absent: tenderness Respiratory exam: Present: normal lung sounds bilaterally. Absent: respiratory distress, wheezes, rales Cardiovascular Exam: Present: regular rate, normal rhythm, normal heart sounds Extremities exam: Present: normal inspection (Small laceration on the right olecranon measuring approximately 1 cm in length.), full ROM, tenderness (Mild tenderness at the site of injury), normal capillary refill, other (+2 ulnar and radial pulses bilaterally. Sensation intact.). Absent: pedal edema, joint swelling, calf tenderness Back exam: Present: normal inspection, full ROM. Absent: tenderness Neurological exam: Present: alert, oriented X3 Psychiatric exam: Present: normal affect, normal mood Skin exam: Present: warm, dry, intact, normal color Course Vital Signs 11/23/19 17:29 Temperature 99.1 F Pulse Rate 107 H Respiratory 18 Rate Blood Pressure 135/77 O2 Sat by Pulse 98 Oximetry Procedures - Laceration Laceration #1 Consent Obtained: verbal consent Indication: laceration Site: other (Right elbow) Size (cm): 1 Description: linear, clean Depth: simple, single layer Sedation/Analgesia: none Anesthetic Used: lidocaine 1% Anesthesia Technique: local infiltration Amount (mls): 2 Pre-repair: irrigated extensively, deep structures intact Type of Sutures: nylon Size of Sutures: 4-0 Number of Sutures: 2 Technique: simple, interrupted Patient Tolerated Procedure: well, no complications Medical Decision Making - Medical Decision Making Patient is a 39-year-old male presenting to the emergency room with a chief complaint of right elbow pain. Exam patient is a very small laceration approx imately 1 cm that is superficial. Laceration site was repaired with 2 sutures. Patient's operative procedure well. Tetanus is up-to-date. X-rays unremarkable. Return parameters were thoroughly discussed with patient was understanding and agreeable. She was advised to return to emergency Department in 10 days. Case discussed with physician. Disposition Clinical Impression: Laceration Disposition: HOME SELF-CARE Condition: Stable Instructions (If sedation given, give patient instructions): Care For Your Stitches (DC), Laceration (DC) Additional Instructions: Return to emergency department in 10 days for suture removal. Follow laceration instructions. Is patient prescribed a controlled substance at d/c from ED?: No Referrals: Kylah Zuñiga PAC [Primary Care Provider] - 1-2 days Time of Disposition: 17:45
--- NOTE | 2019-11-23 18:20 | XR ---
EXAMINATION TYPE: XR elbow complete RT DATE OF EXAM: 11/23/2019 COMPARISON: NONE HISTORY: Fall. Laceration. TECHNIQUE: 3 views FINDINGS: There is no sign of fracture nor dislocation. Joint spaces are normal. There is no sign of joint effusion. There are no pathologic calcifications. IMPRESSION: Negative right elbow exam.
[2019-11-23 18:51] VITALS: BP 115/75; PULSE 77; TEMP 98.6
== END 2019-11-23 18:53 | disposition home or self-care (01) ==
LOC: EC 17:28
DX: S51.011A Laceration without foreign body of right elbow, initial encounter (principal); F17.200 Nicotine dependence, unspecified, uncomplicated; Z88.0 Allergy status to penicillin; Z88.5 Allergy status to narcotic agent; Z88.8 Allergy status to other drugs, medicaments and biological substances; Z91.040 Latex allergy status; W01.0XXA Fall on same level from slipping, tripping and stumbling without subsequent striking against object, initial encounter; Y93.E9 Activity, other interior property and clothing maintenance
CPT/HCPCS: 73080; 99283; 12001; J2001

== ENCOUNTER 2021-02-11 19:13 | Inpatient (IN) | payer MEDICARE, OTHER ==
[2021-02-11] MEDS ORDERED: ACETAMINOPHEN TAB 325 MG TAB PO STA (20:06)
[2021-02-11] MEDS ORDERED: IBUPROFEN 600 MG TAB PO STA (20:06)
--- NOTE | 2021-02-11 20:27 | XR ---
EXAMINATION TYPE: XR chest 2V DATE OF EXAM: 02/11/2021 COMPARISON: 07/31/2017 HISTORY: Chest pain TECHNIQUE: Frontal and lateral views of the chest are obtained. FINDINGS: There is no focal air space opacity. No evidence for pneumothorax. No pleural effusion. The cardiac silhouette size is within normal limits. The osseous structures are grossly intact. IMPRESSION: 1. No acute cardiopulmonary process.
[2021-02-11] MEDS ORDERED: DEXAMETHASONE SOD PHOSPHATE 10 MG/ML 1 ML VIAL IVP STA (20:29)
[2021-02-11 20:50] LABS: Basophils % (A) 0 %; Eosinophils % (A) 0 %; HCT 45.1 % (34.0-46.0); HGB 14.5 gm/dL (11.4-16.0); Lymphocytes # (A) 0.8 k/uL (1.0-4.8); Lymphocytes % (A) 8 %; MCH 28.8 pg (25.0-35.0); MCV 89.8 fL (80.0-100.0); Mean Platelet Volume 9.4; Monocytes # (A) 0.3 k/uL (0-1.0); Monocytes % (A) 3 %; Neutrophils # (A) 8.8 k/uL (1.3-7.7); Neutrophils % (A) 88 %; Platelet Count 199 k/uL (150-450); RBC 5.02 m/uL (3.80-5.40); RDW 14.9 % (11.5-15.5)
[2021-02-11 20:57] LABS: ALT 19 U/L (4-34); AST 23 U/L (14-36); African American GFR (CKD) >90 (>60 ml/min/1.73 sqM); Albumin 4.3 g/dL (3.5-5.0); Alkaline Phosphatase 107 U/L (38-126); Anion Gap 11 mmol/L; Blood Urea Nitrogen 7 mg/dL (7-17); Calcium 9.6 mg/dL (8.4-10.2); Carbon Dioxide 27 mmol/L (22-30); Chloride 101 mmol/L (98-107); Glucose 131 mg/dL (74-99); Non-African American GFR(CKD) >90 (>60 ml/min/1.73 sqM); Potassium 3.5 mmol/L (3.5-5.1); Sodium 139 mmol/L (137-145); Total Bilirubin 0.6 mg/dL (0.2-1.3)
[2021-02-11 21:05] LABS: INR 0.9 (<1.2); Partial Thromboplastin Time 24.3 sec (22.0-30.0); Prothrombin Time 10.1 sec (9.0-12.0)
--- NOTE | 2021-02-11 22:25 | CT ---
EXAMINATION TYPE: CT chest angio for PE DATE OF EXAM: 02/11/2021 COMPARISON: None HISTORY: Shortness of breath. CT DLP: 228.5 mGycm Automated exposure control for dose reduction was used. CONTRAST: Performed with IV Contrast, patient injected with 100 mL of Isovue 370. Images obtained from the thoracic inlet to the diaphragm with IV contrast. There are 3-D post process ed images. Mediastinum is normal. Thoracic aorta shows ectatic ascending aorta measures 4 cm. There are no hilar masses. There is no mediastinal adenopathy. There is no evidence of aortic dissection. Heart size is normal. There is no pericardial effusion. There is normal contrast opacification of the pulmonary arteries. There are no filling defects. There is some mild linear interstitial infiltrate and atelectasis in the anterior segment right upper lobe and anterior segment left upper lobe. There is some similar infiltrate in the right middle lobe . There is some mild reticular infiltrate in the superior segment of the right lower lobe. There is n o pleural effusion. Upper abdominal soft tissues appear intact. The bony thorax is intact. There is s ome degenerative spurring in the thoracic spine. Sternum is intact. IMPRESSION: No evidence of pulmonary embolism. Bilateral pulmonary infiltrates as above. Likely inflammatory. Borderline aneurysm of the ascending aorta.
--- NOTE | 2021-02-11 22:33 | ED ---
SOB HPI - General Chief Complaint: Shortness of Breath Stated Complaint: revisit - SOB Time Seen by Provider: 02/11/21 20:06 Source: patient, RN notes reviewed Mode of arrival: ambulatory Limitations: no limitations - History of Present Illness Initial Comments: Patient is a 40-year-old female that presents to the emergency department complaining of shortness of breath cough congestion for the past several days. She notes she does have a history of smoking and asthma. She notes that she became extremity short of breath prior to arrival. She doesn't she does not feel well. She did appear to be under the weather and sitting tripod position as she stated that laying back in bed made it difficult to breathe. She denied any chest pain headache nausea vomiting diarrhea constipation fever fatigue chills. - Related Data Home Medications Medication Instructions Recorded Confirmed Albuterol Sulfate [Ventolin HFA] 2 puff INHALATION RT-Q4H PRN 02/11/21 02/11/21 Baclofen 5 mg PO BID PRN 02/11/21 02/11/21 HYDROcodone/APAP 10-325MG [[place] 1 tab PO TID PRN 02/11/21 02/11/21 10-325] Ibuprofen [Motrin] 800 mg PO TID PRN 02/11/21 02/11/21 Reina 0.25mg-35mg 1 tab PO DAILY 02/11/21 02/11/21 Allergies Allergy/AdvReac Type Severity Reaction Status Date / Time amitriptyline HCl Allergy ANXIETY Verified 02/11/21 21:51 [From Elavil] amoxicillin Allergy Rash/Hives Verified 02/11/21 21:51 latex Allergy Rash/Hives Verified 02/11/21 21:51 codeine AdvReac Chest Pain Verified 02/11/21 21:51 Review of Systems ROS Statement: Those systems with pertinent positive or pertinent negative responses have been documented in the HPI. ROS Other: All systems not noted in ROS Statement are negative. Past Medical History Past Medical History: Asthma, COPD Additional Past Medical History / Comment(s): 2002, 2010 History of Any Multi-Drug Resistant Organisms: MRSA Date of last positivie culture/infection: 2007 MDRO Source:: ears Past Surgical History: Orthopedic Surgery, Tonsillectomy Additional Past Surgical History / Comment(s): right ankle sx x 2, deviated septum procedure Past Anesthesia/Blood Transfusion Reactions: No Reported Reaction Past Psychological History: Anxiety, Depression, PTSD Smoking Status: Current every day smoker Past Alcohol Use History: None Reported Past Drug Use History: None Reported - Past Family History Sister(s) Family Medical History: Asthma Father Family Medical History: Congestive Heart Failure (CHF) General Exam Limitations: no limitations General appearance: alert, in no apparent distress Head exam: Present: atraumatic, normocephalic, normal inspection Eye exam: Present: normal appearance, PERRL, EOMI. Absent: scleral icterus, conjunctival injection, periorbital swelling ENT exam: Present: normal exam, mucous membranes moist Neck exam: Present: normal inspection Respiratory exam: Present: normal lung sounds bilaterally. Absent: respiratory distress, wheezes, rales, rhonchi, stridor Cardiovascular Exam: Present: regular rate, normal rhythm, normal heart sounds. Absent: systolic murmur, diastolic murmur, rubs, gallop, clicks Extremities exam: Present: normal inspection, full ROM. Absent: tenderness Neurological exam: Present: alert, oriented X3 Psychiatric exam: Present: normal affect, normal mood Course Vital Signs 02/11/21 02/11/21 02/11/21 19:39 20:25 21:47 Temperature 100.9 F H Pulse Rate 133 H 125 H 144 H Respiratory 22 24 Rate Blood Pressure 144/85 O2 Sat by Pulse 80 L 94 L 65 L Oximetry Medical Decision Making - Medical Decision Making 40-year-old female complaining of shortness of breath. In triage patient's oxygen was 80% on room air, started on 3 L oxygen via nasal cannula. Labs, chest x-ray, 600 mg of Motrin, 600 mg of Tylenol, 10 mg of Decadron ordered. Labs: CBC unremarkable, d-dimer 0.38, CMP unremarkable Covid test negative. Chest x-ray negative for any acute card up on her process. Patient was ambulated to test for exertional hypoxia, nurse notes the patient was dropping to low 60s. CT of the chest ordered. CT negative for pulmonary embolism, bilateral infiltrates. [facility] hospitalist consulted and looks at the admit. Case discussed with Dr. Hermosillo outpatient be admitted. - Lab Data Result diagrams: 02/11/21 20:27 02/11/21 20:27 Lab Results 02/11/21 02/11/21 02/11/21 Range/Units 20:27 20:27 20:27 WBC 10.0 (3.8-10.6) k/uL RBC 5.02 (3.80-5.40) m/uL Hgb 14.5 (11.4-16.0) gm/dL Hct 45.1 (34.0-46.0) % MCV 89.8 (80.0-100.0) fL MCH 28.8 (25.0-35.0) pg MCHC 32.0 (31.0-37.0) g/dL RDW 14.9 (11.5-15.5) % Plt Count 199 (150-450) k/uL MPV 9.4 Neutrophils % 88 % Lymphocytes % 8 % Monocytes % 3 % Eosinophils % 0 % Basophils % 0 % Neutrophils # 8.8 H (1.3-7.7) k/uL Lymphocytes # 0.8 L (1.0-4.8) k/uL Monocytes # 0.3 (0-1.0) k/uL Eosinophils # 0.0 (0-0.7) k/uL Basophils # 0.0 (0-0.2) k/uL PT 10.1 (9.0-12.0) sec INR 0.9 (<1.2) APTT 24.3 (22.0-30.0) sec D-Dimer (<0.60) mg/L FEU Sodium 139 (137-145) mmol/L Potassium 3.5 (3.5-5.1) mmol/L Chloride 101 (98-107) mmol/L Carbon Dioxide 27 (22-30) mmol/L Anion Gap 11 mmol/L BUN 7 (7-17) mg/dL Creatinine 0.50 L (0.52-1.04) mg/dL Est GFR (CKD-EPI)AfAm >90 (>60 ml/min/1.73 sqM) Est GFR (CKD-EPI)NonAf >90 (>60 ml/min/1.73 sqM) Glucose 131 H (74-99) mg/dL Calcium 9.6 (8.4-10.2) mg/dL Total Bilirubin 0.6 (0.2-1.3) mg/dL AST 23 (14-36) U/L ALT 19 (4-34) U/L Alkaline Phosphatase 107 (38-126) U/L Troponin I (0.000-0.034) ng/mL Total Protein 8.0 (6.3-8.2) g/dL Albumin 4.3 (3.5-5.0) g/dL Coronavirus (PCR) (Not Detectd) 02/11/21 02/11/21 02/11/21 Range/Units 20:27 20:28 21:22 WBC (3.8-10.6) k/uL RBC (3.80-5.40) m/uL Hgb (11.4-16.0) gm/dL Hct (34.0-46.0) % MCV (80.0-100.0) fL MCH (25.0-35.0) pg MCHC (31.0-37.0) g/dL RDW (11.5-15.5) % Plt Count (150-450) k/uL MPV Neutrophils % % Lymphocytes % % Monocytes % % Eosinophils % % Basophils % % Neutrophils # (1.3-7.7) k/uL Lymphocytes # (1.0-4.8) k/uL Monocytes # (0-1.0) k/uL Eosinophils # (0-0.7) k/uL Basophils # (0-0.2) k/uL PT (9.0-12.0) sec INR (<1.2) APTT (22.0-30.0) sec D-Dimer 0.38 (<0.60) mg/L FEU Sodium (137-145) mmol/L Potassium (3.5-5.1) mmol/L Chloride (98-107) mmol/L Carbon Dioxide (22-30) mmol/L Anion Gap mmol/L BUN (7-17) mg/dL Creatinine (0.52-1.04) mg/dL Est GFR (CKD-EPI)AfAm (>60 ml/min/1.73 sqM) Est GFR (CKD-EPI)NonAf (>60 ml/min/1.73 sqM) Glucose (74-99) mg/dL Calcium (8.4-10.2) mg/dL Total Bilirubin (0.2-1.3) mg/dL AST (14-36) U/L ALT (4-34) U/L Alkaline Phosphatase (38-126) U/L Troponin I 0.024 (0.000-0.034) ng/mL Total Protein (6.3-8.2) g/dL Albumin (3.5-5.0) g/dL Coronavirus (PCR) Not Detected (Not Detectd) - Radiology Data Radiology results: report reviewed, image reviewed Chest x-ray: No acute card up on her process. CT of the chest angiography: No evidence of pulmonary embolism. Bilateral pulmonary infiltrates as above. Likely inflammatory. There is some mild linear interstitial infiltrate atelectasis in the anterior segment right upper lobe and anterior segment left upper lobe. There is some similar infiltrate right middle lobe. There is some mild reticular infiltrate in the super segment of the right lower lobe. There is no pleural effusion. Upper abdominal soft tissue appears intact. The bony thorax is intact. There is some degenerative spurring in the thoracic spine. Sternum is intact. Disposition Clinical Impression: Hypoxia, Shortness of breath, Fever Disposition: [facility] Condition: Stable Is patient prescribed a controlled substance at d/c from ED?: No Referrals: Raegan Herr DO [Primary Care Provider] - 1-2 days Time of Disposition: 22:56
[2021-02-11] MEDS ORDERED: NALOXONE 0.4 MG/ML 1 ML VIAL IV PRN (22:53)
[2021-02-12] MEDS: ACETAMINOPHEN TAB 325 MG TAB PO PRN ×2 (00:19→20:30)
[2021-02-12] MEDS: SODIUM CHLORIDE 0.9% 1,000 ML IV SCH ×4 (03:44→20:29)
[2021-02-12] MEDS ORDERED: IPRATROPIUM-ALBUTEROL 3 ML NEB INHALATION PRN (10:09)
[2021-02-12] MEDS: AZITHROMYCIN 500 MG in SODIUM CHLORIDE 0.9% 250 ML IVPB SCH (11:13)
[2021-02-12] MEDS: guaiFENesin-DM 100-10MG/5ML 10 ML CUP PO PRN ×2 (11:13→20:31)
[2021-02-12] MEDS: methylPREDNISolone SOD SUCCI 125 MG/2 ML VIAL IV SCH ×3 (11:15→23:55)
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
[2021-02-12] MEDS: IPRATROPIUM-ALBUTEROL 3 ML NEB INHALATION SCH ×2 (15:36→19:15)
[2021-02-12] MEDS: SYMBICORT 160-4.5 MCG INHALER INHALATION SCH (19:15)
[2021-02-13] MEDS: SODIUM CHLORIDE 0.9% 1,000 ML IV SCH ×3 (00:04→22:24)
[2021-02-13] MEDS: guaiFENesin-DM 100-10MG/5ML 10 ML CUP PO PRN ×3 (02:43→23:02)
[2021-02-13] MEDS: methylPREDNISolone SOD SUCCI 125 MG/2 ML VIAL IV SCH ×4 (05:55→23:03)
[2021-02-13] MEDS: IPRATROPIUM-ALBUTEROL 3 ML NEB INHALATION SCH ×4 (07:15→20:23)
[2021-02-13] MEDS: SYMBICORT 160-4.5 MCG INHALER INHALATION SCH ×2 (07:15→20:24)
[2021-02-13] MEDS: AZITHROMYCIN 500 MG in SODIUM CHLORIDE 0.9% 250 ML IVPB SCH (09:03)
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
--- NOTE | 2021-02-13 16:35 | P.PN ---
Subjective This is a pleasant 40 years old female with past medical history of asthma/COPD, anxiety and depression. Presents because of dyspnea and hypoxia. Patient says that she started having coughing 3 days ago and dyspnea 2 days ago when she noticed that she cannot take her breath and her oxygen saturation dropped to 90 but with no chest pain or spitting up of phlegm although she Feels This Patient in the Back of Her Throat. That's Why She Came to Emergency Room. She Has Some Diarrhea 2 Days Ago but Stopped Now. No Abdominal Pain or Vomiting. No Dysuria. No Neurological Symptoms. She Smokes Half Pack per Day but She Quit 1 Week Ago When She Started Getting Sick. She Denies Alcohol or Illicit Drugs. Saturating 80% on room air, oxygenating improved to the 90s on 3 L oxygen via nasal cannula rest of vitals are stable. Labs Including CBC, BMP and liver enzymes are unremarkable. D-dimer is negative at 0.38. Coronavirus not detected. Chest x-ray: No acute process. CTA of the chest showing no pulmonary embolism, bilateral pulmonary infiltrate likely inflammatory. On admission patient given Zithromax, ibuprofen, normal saline and dexame thasone. 02/13/2021 Patient states no significant improvement in her dyspnea while she stent in bed most of the time however and examination she has little more air movement in and out of her lungs with more wheezing. She is on 3-4 L of oxygen via nasal cannula. Her vital study came back negative. Currently she is kept on Zithromax and Solu-Medrol and normal saline. Pulmonary team on the case no more fevers since admission D-dimer is -0.38 Objective - Vital Signs Vital signs: Vital Signs Temp 98.4 F 02/13/21 14:00 Pulse 100 02/13/21 15:44 Resp 16 02/13/21 14:00 BP 102/56 02/13/21 14:00 Pulse Ox 93 L 02/13/21 15:33 Intake & Output 02/12/21 02/13/21 02/13/21 18:59 06:59 18:59 Intake Total 1450 Balance 1450 Intake: Intake, IV Titration 1450 Amount Azithromycin 500 mg In 250 Sodium Chloride 0.9% 250 ml @ 250 mls/hr IVPB DAILY [facility] Rx#:[id number] Sodium Chloride 0.9% 1, 1200 000 ml @ 130 mls/hr IV . Q7H42M [facility] Rx#:[id number] Other: # Voids 3 3 # Bowel Movements 2 - Exam GENERAL: The patient is alert and oriented x3, not in any acute distress. Well developed, well nourished. HEENT: Pupils are round and equally reacting to light. EOMI. No scleral icterus. No conjunctival pallor. Normocephalic, atraumatic. No pharyngeal erythema. No thyromegaly. CARDIOVASCULAR: S1 and S2 present. No murmurs, rubs, or gallops. -PULMONARY: Chest is clear to auscultation, no limited air entry on both sides with a scattered wheezing ABDOMEN: Soft, nontender, nondistended, normoactive bowel sounds. No palpable organomegaly. MUSCULOSKELETAL: No joint swelling or deformity. EXTREMITIES: No cyanosis, clubbing, or pedal edema. NEUROLOGICAL: Gross neurological examination did not reveal any focal deficits. SKIN: No rashes. no petechiae. - Labs CBC & Chem 7: 02/11/21 20:27 02/11/21 20:27 Assessment and Plan Assessment: Acute COPD exacerbation Acute hypoxic respiratory failure Nicotine dependence, patient is counseled and agreed to quit but she does not want nicotine patch History of anxiety and depression, not active issue Plan: this is a pleasant 40 years old female who presents with hypoxia Continue with oxygen Pulmonary consult Continue with Solu-Medrol, continue with Zithromax Labs and medication were reviewed.. Continue same treatment. Continue with symptomatic treatment. Resume home medication. Monitor lytes and vitals. DVT and GI prophylaxis. Further recommendations depends on the clinical course of the patient DVT prophylaxis: Subcutaneous heparin GI Prophylaxis: Pepcid Prognosis is guarded
[2021-02-14] MEDS: methylPREDNISolone SOD SUCCI 125 MG/2 ML VIAL IV SCH ×3 (05:08→18:38)
[2021-02-14] MEDS: guaiFENesin-DM 100-10MG/5ML 10 ML CUP PO PRN (05:08)
[2021-02-14] MEDS: SODIUM CHLORIDE 0.9% 1,000 ML IV SCH ×3 (05:15→19:44)
[2021-02-14] MEDS: SYMBICORT 160-4.5 MCG INHALER INHALATION SCH (07:07)
[2021-02-14] MEDS: IPRATROPIUM-ALBUTEROL 3 ML NEB INHALATION SCH ×4 (07:07→20:54)
[2021-02-14] MEDS: AZITHROMYCIN 500 MG in SODIUM CHLORIDE 0.9% 250 ML IVPB SCH (07:51)
[2021-02-14] MEDS ORDERED: BUDESONIDE 0.5 MG/2 ML NEBU INHALATION SCH (12:00)
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
[2021-02-14] MEDS: FORMOTEROL FUMARATE 20 MCG/2 ML NEBU INHALATION SCH (20:52)
[2021-02-14] MEDS: BUDESONIDE 0.5 MG/2 ML NEBU INHALATION SCH (20:54)
[2021-02-15] MEDS: methylPREDNISolone SOD SUCCI 125 MG/2 ML VIAL IV SCH ×5 (00:29→23:24)
[2021-02-15] MEDS: IPRATROPIUM-ALBUTEROL 3 ML NEB INHALATION SCH ×6 (00:37→20:32)
[2021-02-15] MEDS: guaiFENesin-DM 100-10MG/5ML 10 ML CUP PO PRN ×4 (00:59→23:11)
[2021-02-15 08:21] LABS: C Reactive Protein 2.2 mg/dL (<1.0)
[2021-02-15 08:43] LABS: Basophils % (A) 0 %; Eosinophils % (A) 0 %; HCT 37.8 % (34.0-46.0); HGB 11.8 gm/dL (11.4-16.0); Hypochromasia Slight; Lymphocytes # (A) 0.8 k/uL (1.0-4.8); Lymphocytes % (A) 15 %; MCHC 31.1 g/dL (31.0-37.0); MCV 93.3 fL (80.0-100.0); Mean Platelet Volume 10.3; Monocytes # (A) 0.1 k/uL (0-1.0); Monocytes % (A) 2 %; Neutrophils # (A) 4.3 k/uL (1.3-7.7); Neutrophils % (A) 81 %; Platelet Count 209 k/uL (150-450); RBC 4.05 m/uL (3.80-5.40); RDW 14.7 % (11.5-15.5); WBC 5.3 k/uL (3.8-10.6)
[2021-02-15] MEDS: BUDESONIDE 0.5 MG/2 ML NEBU INHALATION SCH ×2 (08:57→20:32)
[2021-02-15] MEDS: FORMOTEROL FUMARATE 20 MCG/2 ML NEBU INHALATION SCH ×2 (08:57→20:32)
[2021-02-15] MEDS: AZITHROMYCIN 500 MG in SODIUM CHLORIDE 0.9% 250 ML IVPB SCH (09:47)
--- NOTE | 2021-02-15 09:50 | XR ---
EXAMINATION TYPE: XR chest 1V portable DATE OF EXAM: 02/15/2021 COMPARISON: Chest x-ray 02/11/2021 CT chest 02/11/2021 HISTORY: Covid, congestion in the chest TECHNIQUE: Single frontal view of the chest is obtained. FINDINGS: There is no focal air space opacity, pleural effusion, or pneumothorax seen. Emphysematous changes are present within the lungs. The cardiac silhouette size is within normal limits. The oss eous structures are intact. IMPRESSION: No acute process. Infiltrate seen on prior CT not as well seen on plain film.
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
[2021-02-15 12:35] LABS: Glucose,Whole Blood 137 mg/dL (75-99)
[2021-02-15] MEDS: INSULIN ASPART (NovoLOG) 100 UNIT/ML VIAL SQ SCH ×3 (12:40→21:30)
[2021-02-15] MEDS: SODIUM CHLORIDE 0.9% 1,000 ML IV SCH (16:39)
[2021-02-15] MEDS: ACETAMINOPHEN ORAL SUSP 160 MG/5 ML CUP PO PRN (16:39)
[2021-02-15 17:56] LABS: Glucose,Whole Blood 195 mg/dL (75-99)
[2021-02-15 21:11] LABS: Glucose,Whole Blood 107 mg/dL (75-99)
[2021-02-16] MEDS: IPRATROPIUM-ALBUTEROL 3 ML NEB INHALATION SCH ×6 (00:37→20:04)
[2021-02-16] MEDS: SODIUM CHLORIDE 0.9% 1,000 ML IV SCH (06:40)
[2021-02-16] MEDS: methylPREDNISolone SOD SUCCI 125 MG/2 ML VIAL IV SCH ×3 (06:40→17:59)
[2021-02-16] MEDS: INSULIN ASPART (NovoLOG) 100 UNIT/ML VIAL SQ SCH ×4 (06:44→22:08)
[2021-02-16 06:45] LABS: Glucose,Whole Blood 142 mg/dL (75-99)
[2021-02-16 07:33] LABS: African American GFR (CKD) >90 (>60 ml/min/1.73 sqM); Anion Gap 4 mmol/L; Blood Urea Nitrogen 14 mg/dL (7-17); Calcium 8.9 mg/dL (8.4-10.2); Carbon Dioxide 33 mmol/L (22-30); Chloride 101 mmol/L (98-107); Glucose 146 mg/dL (74-99); Non-African American GFR(CKD) >90 (>60 ml/min/1.73 sqM); Potassium 4.1 mmol/L (3.5-5.1); Sodium 138 mmol/L (137-145)
[2021-02-16] MEDS: FORMOTEROL FUMARATE 20 MCG/2 ML NEBU INHALATION SCH ×2 (08:22→20:04)
[2021-02-16] MEDS: BUDESONIDE 0.5 MG/2 ML NEBU INHALATION SCH (08:22)
[2021-02-16] MEDS: AZITHROMYCIN 500 MG in SODIUM CHLORIDE 0.9% 250 ML IVPB SCH (09:11)
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
[2021-02-16 12:54] LABS: Glucose,Whole Blood 147 mg/dL (75-99)
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
[2021-02-16 17:49] LABS: Glucose,Whole Blood 191 mg/dL (75-99)
[2021-02-16] MEDS: ACETAMINOPHEN ORAL SUSP 160 MG/5 ML CUP PO PRN (18:06)
[2021-02-16] MEDS: BUDESONIDE 1 MG/2 ML NEBU INHALATION SCH (20:05)
[2021-02-16 21:42] LABS: Glucose,Whole Blood 207 mg/dL (75-99)
[2021-02-17] MEDS: methylPREDNISolone SOD SUCCI 125 MG/2 ML VIAL IV SCH ×4 (00:42→18:13)
[2021-02-17] MEDS: IPRATROPIUM-ALBUTEROL 3 ML NEB INHALATION SCH ×5 (00:43→15:32)
[2021-02-17 06:12] LABS: Basophils % (A) 0 %; Eosinophils % (A) 0 %; HCT 39.4 % (34.0-46.0); HGB 12.3 gm/dL (11.4-16.0); Lymphocytes # (A) 0.9 k/uL (1.0-4.8); Lymphocytes % (A) 11 %; MCH 28.9 pg (25.0-35.0); MCHC 31.2 g/dL (31.0-37.0); MCV 92.5 fL (80.0-100.0); Mean Platelet Volume 9.5; Monocytes # (A) 0.2 k/uL (0-1.0); Monocytes % (A) 2 %; Neutrophils # (A) 6.7 k/uL (1.3-7.7); Neutrophils % (A) 86 %; Platelet Count 213 k/uL (150-450); RBC 4.25 m/uL (3.80-5.40); RDW 14.6 % (11.5-15.5); WBC 7.7 k/uL (3.8-10.6)
[2021-02-17 06:27] LABS: African American GFR (CKD) >90 (>60 ml/min/1.73 sqM); Anion Gap 5 mmol/L; Blood Urea Nitrogen 14 mg/dL (7-17); Calcium 8.8 mg/dL (8.4-10.2); Carbon Dioxide 33 mmol/L (22-30); Chloride 98 mmol/L (98-107); Glucose 142 mg/dL (74-99); Non-African American GFR(CKD) >90 (>60 ml/min/1.73 sqM); Sodium 136 mmol/L (137-145)
[2021-02-17 07:03] LABS: Glucose,Whole Blood 155 mg/dL (75-99)
[2021-02-17] MEDS: FORMOTEROL FUMARATE 20 MCG/2 ML NEBU INHALATION SCH (07:50)
[2021-02-17] MEDS: BUDESONIDE 1 MG/2 ML NEBU INHALATION SCH (07:50)
[2021-02-17] MEDS: INSULIN ASPART (NovoLOG) 100 UNIT/ML VIAL SQ SCH ×3 (08:00→17:28)
[2021-02-17] MEDS: SODIUM CHLORIDE 0.9% 1,000 ML IV SCH (08:19)
[2021-02-17] MEDS: AZITHROMYCIN 500 MG in SODIUM CHLORIDE 0.9% 250 ML IVPB SCH (10:58)
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
[2021-02-17 12:17] LABS: Glucose,Whole Blood 142 mg/dL (75-99)
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
--- NOTE | 2021-02-17 12:41 | XR ---
EXAMINATION TYPE: XR chest 2V DATE OF EXAM: 02/17/2021 COMPARISON: Chest x-ray 02/15/2021, chest CT 02/11/2021 HISTORY: Shortness of breath TECHNIQUE: Frontal and lateral views of the chest are obtained. FINDINGS: There is no focal air space opacity, pleural effusion, or pneumothorax seen. The cardiac silhouette size is within normal limits. Comment lung biopsy could be indicative of underlying COPD. Pulmonary vascularity is attenuated. The osseous structures are intact. IMPRESSION: Suspect there is improvement in aeration. Consider Obliterative Bronchiolitis, asthma.
[2021-02-17 12:56] VITALS: BMI 27.6
[2021-02-17 14:47] VITALS: BP 144/82; RESP 19; TEMP 97.4
[2021-02-17 15:41] VITALS: PULSE 72
[2021-02-17 16:56] LABS: Glucose,Whole Blood 126 mg/dL (75-99)
== END 2021-02-17 19:08 | disposition home or self-care (01) | DRG 190 ==
LOC: EC 19:13 → 4SSUR 22:44 → 6PED 02-14 15:25 → 6NMEDSUR 02-16 21:35
PROVIDERS: ADMIT Family Medicine; ATTEND Family Medicine
DX: J44.1 Chronic obstructive pulmonary disease with (acute) exacerbation (principal); J96.01 Acute respiratory failure with hypoxia; J45.901 Unspecified asthma with (acute) exacerbation; Z20.822 Contact with and (suspected) exposure to COVID-19; Z82.49 Family history of ischemic heart disease and other diseases of the circulatory system; Z82.5 Family history of asthma and other chronic lower respiratory diseases; G89.29 Other chronic pain; F43.10 Post-traumatic stress disorder, unspecified; F32.9 Major depressive disorder, single episode, unspecified; F17.200 Nicotine dependence, unspecified, uncomplicated; E66.9 Obesity, unspecified; Z79.899 Other long term (current) drug therapy
CPT/HCPCS: 36415; 71045; 71046; 71275; 80048; 80053; 83615; 84145; 84484; 85025; 85379; 85610; 85730; 86140; 87449; 87502; 87634; 87635; 94640; 94760; 96374; 99285

== ENCOUNTER → 2021-06-23 | Outpatient (CLI) | payer MEDICARE, OTHER ==
[2021-06-23 23:59] LABS: Immunoglobulin E 39.9 IU/mL (0.00-114.00); Immunoglobulin E 40.1 IU/mL (0.00-114.00)
== END | disposition home or self-care (01) ==
LOC: LABWHC1 16:28
PROVIDERS: ATTEND Nurse Practitioner Adult Health
DX: J45.901 Unspecified asthma with (acute) exacerbation (principal)
CPT/HCPCS: 36415; 82785; 86003

== ENCOUNTER → 2021-10-21 | Outpatient (CLI) | payer MEDICARE, OTHER ==
--- NOTE | 2021-10-25 08:04 | MM ---
Reason for Exam: Screening (asymptomatic). Last mammogram was performed 4 year(s) and 1 month(s) ago. Patient History: Menarche at age 10. First Full-Term at age 22. Currently using Hormonal Contraceptives, starting at age 11. Risk Values: Wendy 5 year model risk: 0.6%. NCI Lifetime model risk: 8.8%. Prior Study Comparison: 10/19/2017 Bilateral Diagnostic Mammogram, [facility]. Tissue Density: The breast tissue is almost entirely fat. Findings: Analyzed By CAD. There is no suspicious group of microcalcifications or new suspicious mass in either breast. Overall Assessment: Negative, BI-RAD 1 Management: Screening Mammogram of both breasts in 1 year. A clinical breast exam by your physician is recommended on an annual basis and results should be correlated with mammographic findings. Electronically signed and approved by: Harry Lugo M.D. Radiologis
== END | disposition home or self-care (01) ==
LOC: RADMAMWWP 16:00
PROVIDERS: ATTEND Family Medicine
DX: Z12.31 Encounter for screening mammogram for malignant neoplasm of breast (principal)
CPT/HCPCS: 77063; 77067

== ENCOUNTER 2022-03-09 02:10 | Emergency (ER) | payer MEDICARE, OTHER ==
[2022-03-09 02:30] VITALS: TEMP 98.2
[2022-03-09] MEDS ORDERED: LORazepam 1 MG TAB PO STA (02:49)
[2022-03-09] MEDS ORDERED: SODIUM CHLORIDE 0.9% 1,000 ML IV STA (02:49)
[2022-03-09] MEDS ORDERED: IBUPROFEN 800 MG TAB PO STA (03:41)
[2022-03-09 03:44] LABS: Basophils % (A) 0 %; Eosinophils # (A) 0.2 k/uL (0-0.7); Eosinophils % (A) 2 %; HCT 35.7 % (34.0-46.0); Lymphocytes # (A) 2.2 k/uL (1.0-4.8); Lymphocytes % (A) 20 %; MCH 29.3 pg (25.0-35.0); MCHC 33.7 g/dL (31.0-37.0); MCV 86.9 fL (80.0-100.0); Mean Platelet Volume 10.8; Monocytes # (A) 0.3 k/uL (0-1.0); Monocytes % (A) 3 %; Neutrophils % (A) 74 %; Platelet Count 248 k/uL (150-450); RBC 4.11 m/uL (3.80-5.40); RDW 13.2 % (11.5-15.5); WBC 10.9 k/uL (3.8-10.6)
[2022-03-09 03:53] LABS: INR 0.9 (<1.2); Partial Thromboplastin Time 23.6 sec (22.0-30.0); Prothrombin Time 9.8 sec (9.0-12.0)
[2022-03-09 04:00] LABS: ALT 17 U/L (4-34); AST 19 U/L (14-36); African American GFR (CKD) >90 (>60 ml/min/1.73 sqM); Albumin 3.8 g/dL (3.5-5.0); Alkaline Phosphatase 87 U/L (38-126); Anion Gap 7 mmol/L; Blood Urea Nitrogen 10 mg/dL (7-17); Calcium 9.1 mg/dL (8.4-10.2); Carbon Dioxide 24 mmol/L (22-30); Chloride 106 mmol/L (98-107); Glucose 105 mg/dL (74-99); Non-African American GFR(CKD) >90 (>60 ml/min/1.73 sqM); Sodium 137 mmol/L (137-145); Total Bilirubin 0.5 mg/dL (0.2-1.3); Total Protein 6.6 g/dL (6.3-8.2)
--- NOTE | 2022-03-09 04:10 | XR ---
EXAMINATION TYPE: XR chest 2V DATE OF EXAM: 03/09/2022 COMPARISON: 03/01/2021 HISTORY: Tachycardia TECHNIQUE: 2 views FINDINGS: Heart and mediastinum are normal. Lungs are clear. Diaphragm is normal. Bony thorax appears normal. IMPRESSION: Normal chest. No change.
[2022-03-09 04:14] VITALS: BP 108/70; PULSE 80; RESP 16
[2022-03-09 04:31] LABS: Appearance,Urine Clear (Clear); Bilirubin,Urine Negative (Negative); Blood,Urine Negative (Negative); Color,Urine Colorless; Glucose,Urine (UA) Negative (Negative); Ketones,Urine Negative (Negative); Leukocyte Esterase,Urine Negative (Negative); Nitrite,Urine Negative (Negative); PH, Urine 6.5 (5.0-8.0); Protein,Urine Negative (Negative); Specific Gravity,Urine 1.005 (1.001-1.035); Urobilinogen,Urine <2.0 mg/dL (<2.0)
--- NOTE | 2022-03-09 04:42 | ED ---
General Adult HPI - General Chief complaint: Neuro Symptoms/Deficit Stated complaint: tingling sensation all over Time Seen by Provider: 03/09/22 02:32 Source: patient Mode of arrival: ambulatory Limitations: no limitations - History of Present Illness Initial comments: Patient is a 41-year-old female presenting with chief complaint of generalized paresthesias. Patient states she has dealt with these episodes for over 20 years. She states that this episode is been ongoing since 2 PM, about 14 hours ago. She states that she also gets hot and cold flashes. She was evaluated here 2 weeks ago for similar symptoms, workup was determined to be negative and she was instructed to follow-up with her PCP as she may require a Holter monitor and echocardiogram. Admits to headache and fatigue. She denies any chest pain, difficulty breathing, palpitations, abdominal pain, nausea, vomiting, syncope, seizure - Related Data Home Medications Medication Instructions Recorded Confirmed Albuterol Sulfate [Ventolin HFA] 2 puff INHALATION RT-Q4H PRN 02/11/21 02/11/21 Baclofen 5 mg PO BID PRN 02/11/21 02/11/21 HYDROcodone/APAP 10-325MG [[place] 1 tab PO TID PRN 02/11/21 02/11/21 10-325] Reina 0.25mg-35mg 1 tab PO DAILY 02/11/21 02/11/21 Previous Rx's Medication Instructions Recorded Aspirin EC [Ecotrin Low Dose] 81 mg PO DAILY #60 tab 02/17/21 Budesonide/Formoterol Fumarate 2 puff INHALATION BID #1 inh 02/17/21 [Symbicort 80-4.5 Mcg Inhaler] Ipratropium-Albuterol Nebulize 3 ml INHALATION QID #120 ml 02/17/21 [Duoneb 0.5 mg-3 mg/3 ml Soln] guaiFENesin-DM 100-10MG/5ML 10 ml PO Q6HR PRN ml 02/17/21 [Robitussin DM] predniSONE 10 mg PO DIRECTED #30 tab 02/17/21 Allergies Allergy/AdvReac Type Severity Reaction Status Date / Time amitriptyline HCl Allergy ANXIETY Verified 03/09/22 02:28 [From Elavil] amoxicillin Allergy Rash/Hives Verified 03/09/22 02:28 latex Allergy Rash/Hives Verified 03/09/22 02:28 codeine AdvReac Chest Pain Verified 03/09/22 02:28 Review of Systems ROS Statement: Those systems with pertinent positive or pertinent negative responses have been documented in the HPI. ROS Other: All systems not noted in ROS Statement are negative. Past Medical History Past Medical History: Asthma, COPD Additional Past Medical History / Comment(s): back pain History of Any Multi-Drug Resistant Organisms: MRSA Date of last positivie culture/infection: 2007 MDRO Source:: ears Past Surgical History: Orthopedic Surgery, Tonsillectomy Additional Past Surgical History / Comment(s): right ankle sx x 2, deviated septum procedure Past Anesthesia/Blood Transfusion Reactions: No Reported Reaction Past Psychological History: Anxiety, Depression, PTSD Smoking Status: Former smoker Past Alcohol Use History: None Reported Past Drug Use History: None Reported - Past Family History Sister(s) Family Medical History: Asthma Father Family Medical History: Congestive Heart Failure (CHF) General Exam Limitations: no limitations General appearance: alert, anxious Head exam: Present: atraumatic, normocephalic, normal inspection Eye exam: Present: normal appearance Neck exam: Present: normal inspection, full ROM. Absent: tenderness Respiratory exam: Present: normal lung sounds bilaterally. Absent: respiratory distress, wheezes, rales, rhonchi, stridor Cardiovascular Exam: Present: regular rate, normal rhythm, normal heart sounds. Absent: systolic murmur, diastolic murmur, rubs, gallop, clicks Neurological exam: Present: alert, oriented X3, CN II-XII intact Psychiatric exam: Present: anxious. Absent: homicidal ideation, suicidal ideation Skin exam: Present: warm, dry, intact, normal color. Absent: rash Course Vital Signs 03/09/22 03/09/22 02:28 04:14 Temperature 98.2 F Pulse Rate 121 H 80 Respiratory 26 H 16 Rate Blood Pressure 159/78 108/70 O2 Sat by Pulse 99 98 Oximetry Medical Decision Making - Medical Decision Making Patient is a 41-year-old female presenting with chief complaint of generalized paresthesias. Patient has had episodes like this before, she was seen here recently evaluated for the same complaint. On examination patient appears anxious, she is hyperventilating and rocking [id number]. CBC shows WBC 10.9, no anemia. Coags are WNL. Electrolytes are WNL. Troponin is less than 0.012. UA is negative for any infectious process. Toxicology positive for opiates. Chest x-ray shows no acute process. Patient was offered Ativan, declined she does not like to try new medications. I educated her on her results, patient informed me that she is currently followed by cardiology, recently had a Holter monitor done and has echocardiogram scheduled. I encouraged her to continue following up with cardiology. Follow-up with PCP. Report back to ER with any new or worsening symptoms. Discussed return parameters and answered all questions. Patient conveyed verbal understanding and agreed to the plan. I discussed this case in detail with my attending Dr. Hermosillo. - Lab Data Result diagrams: 03/09/22 03:13 03/09/22 03:13 Lab Results 03/09/22 03/09/22 03/09/22 Range/Units 03:13 03:13 03:13 WBC 10.9 H (3.8-10.6) k/uL RBC 4.11 (3.80-5.40) m/uL Hgb 12.0 (11.4-16.0) gm/dL Hct 35.7 (34.0-46.0) % MCV 86.9 (80.0-100.0) fL MCH 29.3 (25.0-35.0) pg MCHC 33.7 (31.0-37.0) g/dL RDW 13.2 (11.5-15.5) % Plt Count 248 (150-450) k/uL MPV 10.8 Neutrophils % 74 % Lymphocytes % 20 % Monocytes % 3 % Eosinophils % 2 % Basophils % 0 % Neutrophils # 8.0 H (1.3-7.7) k/uL Lymphocytes # 2.2 (1.0-4.8) k/uL Monocytes # 0.3 (0-1.0) k/uL Eosinophils # 0.2 (0-0.7) k/uL Basophils # 0.0 (0-0.2) k/uL PT 9.8 (9.0-12.0) sec INR 0.9 (<1.2) APTT 23.6 (22.0-30.0) sec Sodium 137 (137-145) mmol/L Potassium 4.0 (3.5-5.1) mmol/L Chloride 106 (98-107) mmol/L Carbon Dioxide 24 (22-30) mmol/L Anion Gap 7 mmol/L BUN 10 (7-17) mg/dL Creatinine 0.50 L (0.52-1.04) mg/dL Est GFR (CKD-EPI)AfAm >90 (>60 ml/min/1.73 sqM) Est GFR (CKD-EPI)NonAf >90 (>60 ml/min/1.73 sqM) Glucose 105 H (74-99) mg/dL Calcium 9.1 (8.4-10.2) mg/dL Total Bilirubin 0.5 (0.2-1.3) mg/dL AST 19 (14-36) U/L ALT 17 (4-34) U/L Alkaline Phosphatase 87 (38-126) U/L Troponin I (0.000-0.034) ng/mL Total Protein 6.6 (6.3-8.2) g/dL Albumin 3.8 (3.5-5.0) g/dL Urine Color Urine Appearance (Clear) Urine pH (5.0-8.0) Ur Specific Hundred (1.001-1.035) Urine Protein (Negative) Urine Glucose (UA) (Negative) Urine Ketones (Negative) Urine Blood (Negative) Urine Nitrite (Negative) Urine Bilirubin (Negative) Urine Urobilinogen (<2.0) mg/dL Ur Leukocyte Esterase (Negative) Urine Opiates Screen (NotDetected) Ur Oxycodone Screen (NotDetected) Urine Methadone Screen (NotDetected) Ur Propoxyphene Screen (NotDetected) Ur Barbiturates Screen (NotDetected) U Tricyclic Antidepress (NotDetected) Ur Phencyclidine Scrn (NotDetected) Ur Amphetamines Screen (NotDetected) U Methamphetamines Scrn (NotDetected) U Benzodiazepines Scrn (NotDetected) Urine Cocaine Screen (NotDetected) U Marijuana (THC) Screen (NotDetected) 03/09/22 03/09/22 Range/Units 03:13 04:15 WBC (3.8-10.6) k/uL RBC (3.80-5.40) m/uL Hgb (11.4-16.0) gm/dL Hct (34.0-46.0) % MCV (80.0-100.0) fL MCH (25.0-35.0) pg MCHC (31.0-37.0) g/dL RDW (11.5-15.5) % Plt Count (150-450) k/uL MPV Neutrophils % % Lymphocytes % % Monocytes % % Eosinophils % % Basophils % % Neutrophils # (1.3-7.7) k/uL Lymphocytes # (1.0-4.8) k/uL Monocytes # (0-1.0) k/uL Eosinophils # (0-0.7) k/uL Basophils # (0-0.2) k/uL PT (9.0-12.0) sec INR (<1.2) APTT (22.0-30.0) sec Sodium (137-145) mmol/L Potassium (3.5-5.1) mmol/L Chloride (98-107) mmol/L Carbon Dioxide (22-30) mmol/L Anion Gap mmol/L BUN (7-17) mg/dL Creatinine (0.52-1.04) mg/dL Est GFR (CKD-EPI)AfAm (>60 ml/min/1.73 sqM) Est GFR (CKD-EPI)NonAf (>60 ml/min/1.73 sqM) Glucose (74-99) mg/dL Calcium (8.4-10.2) mg/dL Total Bilirubin (0.2-1.3) mg/dL AST (14-36) U/L ALT (4-34) U/L Alkaline Phosphatase (38-126) U/L Troponin I <0.012 (0.000-0.034) ng/mL Total Protein (6.3-8.2) g/dL Albumin (3.5-5.0) g/dL Urine Color Colorless Urine Appearance Clear (Clear) Urine pH 6.5 (5.0-8.0) Ur Specific Hundred 1.005 (1.001-1.035) Urine Protein Negative (Negative) Urine Glucose (UA) Negative (Negative) Urine Ketones Negative (Negative) Urine Blood Negative (Negative) Urine Nitrite Negative (Negative) Urine Bilirubin Negative (Negative) Urine Urobilinogen <2.0 (<2.0) mg/dL Ur Leukocyte Esterase Negative (Negative) Urine Opiates Screen Detected H (NotDetected) Ur Oxycodone Screen Not Detected (NotDetected) Urine Methadone Screen Not Detected (NotDetected) Ur Propoxyphene Screen Not Detected (NotDetected) Ur Barbiturates Screen Not Detected (NotDetected) U Tricyclic Antidepress Not Detected (NotDetected) Ur Phencyclidine Scrn Not Detected (NotDetected) Ur Amphetamines Screen Not Detected (NotDetected) U Methamphetamines Scrn Not Detected (NotDetected) U Benzodiazepines Scrn Not Detected (NotDetected) Urine Cocaine Screen Not Detected (NotDetected) U Marijuana (THC) Screen Not Detected (NotDetected) Disposition Clinical Impression: Paresthesia Disposition: HOME SELF-CARE Condition: Good Instructions (If sedation given, give patient instructions): Paresthesia (ED), Anxiety (ED) Additional Instructions: Follow-up with PCP. Report back to ER with any new or worsening symptoms. Is patient prescribed a controlled substance at d/c from ED?: No Referrals: Raegan Herr DO [Primary Care Provider] - 1-2 days Time of Disposition: 04:42
[2022-03-09 04:46] LABS: Amphetamine Screen,Urine Not Detected (NotDetected); Barbiturate Screen,Urine Not Detected (NotDetected); Benzodiazepines Screen,Urine Not Detected (NotDetected); Cocaine Screen,Urine Not Detected (NotDetected); Methadone Screen, Urine Not Detected (NotDetected); Opiate Screen,Urine Detected (NotDetected); Oxycodone Screen, Urine Not Detected (NotDetected); Phencyclidine Screen,Urine Not Detected (NotDetected); Tricyclic Antidepressant,Urine Not Detected (NotDetected); Urn Cannabinoid Scrn Not Detected (NotDetected)
== END 2022-03-09 05:23 | disposition home or self-care (01) ==
LOC: EC 02:10
DX: R20.2 Paresthesia of skin (principal); F41.9 Anxiety disorder, unspecified; J44.9 Chronic obstructive pulmonary disease, unspecified; Z88.0 Allergy status to penicillin; Z91.040 Latex allergy status; Z88.5 Allergy status to narcotic agent; Z88.8 Allergy status to other drugs, medicaments and biological substances; Z87.891 Personal history of nicotine dependence; Z79.51 Long term (current) use of inhaled steroids
CPT/HCPCS: 36415; 71046; 80053; 80306; 81003; 84484; 85025; 85610; 85730; 96360; 99284

== ENCOUNTER 2022-07-14 10:11 | Day surgery (SDC) | payer MEDICARE, OTHER ==
[2022-07-11 15:44] VITALS: BMI 30.1
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
[~2022-07-14 10:11] MED LIST: ACETAMINOPHEN TAB 500 MG TAB PO STA; DEXAMETHASONE SOD PHOSPHATE 4 MG/ML 1 ML VIAL IV ONE; HEPARIN SODIUM,PORCINE/PF 5,000 UNIT/0.5 ML SYRINGE SQ PRN; HYDROmorphone 0.5 MG/0.5 ML SYRINGE IVP PRN; INDOCYANINE GREEN 25 MG VIAL IV STA; LACTATED RINGERS 1,000 ML IV SCH; LIDOCAINE 1% (10MG/ML) FOR IV START INTRADERMA PRN; MELOXICAM 7.5 MG TAB PO SCH; MIDAZOLAM 2 MG/2 ML VIAL IV PRN; ONDANSETRON 4 MG/2 ML VIAL IVP ONE; SCOPOLAMINE 1 MG/72 HR PATCH TRANSDERM STA
[2022-07-14 11:01] LABS: Glucose,Whole Blood 88 mg/dL (70-110)
[2022-07-14 11:07] LABS: Basophils % (A) 0 %; Eosinophils # (A) 0.1 k/uL (0-0.7); Eosinophils % (A) 1 %; HCT 38.2 % (34.0-46.0); HGB 12.5 gm/dL (11.4-16.0); Lymphocytes # (A) 1.8 k/uL (1.0-4.8); Lymphocytes % (A) 18 %; MCH 28.3 pg (25.0-35.0); MCHC 32.7 g/dL (31.0-37.0); MCV 86.5 fL (80.0-100.0); Mean Platelet Volume 8.8; Monocytes # (A) 0.3 k/uL (0-1.0); Monocytes % (A) 3 %; Neutrophils # (A) 7.3 k/uL (1.3-7.7); Neutrophils % (A) 77 %; Platelet Count 239 k/uL (150-450); RBC 4.41 m/uL (3.80-5.40); RDW 13.1 % (11.5-15.5); WBC 9.5 k/uL (3.8-10.6)
[2022-07-14 11:46] LABS: Potassium 3.8 mmol/L (3.5-5.1)
[2022-07-14 11:54] LABS: ALT 19 U/L (4-34); AST 22 U/L (14-36); African American GFR (CKD) >90 (>60 ml/min/1.73 sqM); Albumin 4.2 g/dL (3.5-5.0); Alkaline Phosphatase 110 U/L (38-126); Anion Gap 7 mmol/L; Blood Urea Nitrogen 6 mg/dL (7-17); Calcium 8.9 mg/dL (8.4-10.2); Carbon Dioxide 30 mmol/L (22-30); Chloride 102 mmol/L (98-107); Glucose 92 mg/dL (74-99); Non-African American GFR(CKD) >90 (>60 ml/min/1.73 sqM); Sodium 139 mmol/L (137-145); Total Bilirubin 0.6 mg/dL (0.2-1.3); Total Protein 7.5 g/dL (6.3-8.2)
[2022-07-14] MEDS ORDERED: BUPIVACAIN-EPI 0.25%-1:200,000 30 ML VIAL SQ ONE ×2 (12:03→12:41)
[2022-07-14] MEDS ORDERED: LIDOCAINE 2% INJ 20 MG/ML (2 ML VIAL) ONE (12:07)
[2022-07-14] MEDS ORDERED: INDOCYANINE GREEN 25 MG VIAL IV ONE (12:07)
[2022-07-14] MEDS ORDERED: fentaNYL (PF) 50 MCG/ML 2 ML AMP ONE (12:07)
[2022-07-14] MEDS ORDERED: PHENYLEPHRINE-0.9% NACL SYG 1,000 MCG/10 ML SYRINGE ONE (12:07)
[2022-07-14] MEDS ORDERED: ROCURONIUM 10 MG/ML (5 ML VIAL) IV ONE (12:07)
[2022-07-14] MEDS ORDERED: MIDAZOLAM 2 MG/2 ML VIAL ONE (12:07)
[2022-07-14] MEDS ORDERED: PROPOFOL 10 MG/ML 20 ML VIAL IV ONE (12:07)
[2022-07-14] MEDS ORDERED: ePHEDrine 50 MG/ML 1 ML VIAL ONE (12:07)
[2022-07-14 13:26] VITALS: TEMP 98.3
[2022-07-14] MEDS ORDERED: HYDROmorphone 0.5 MG/0.5 ML SYRINGE IVP ONE ×2 (13:37→13:53)
[2022-07-14] MEDS ORDERED: LACTATED RINGERS 1,000 ML IV ONE (13:55)
[2022-07-14 15:25] VITALS: BP 101/66; PULSE 78; RESP 19
--- NOTE | 2022-07-18 11:25 | P.OP ---
Date of Procedure: 07/14/22 Description of Procedure: SURGEON: ALMA MENJIVAR MD PREOPERATIVE DIAGNOSES: 1. Symptomatic gallstones 2. Right upper quadrant abdominal pain 3. Hyperbilirubinemia 4. Choledocholithiasis 5. Asthma 6. Chronic obstructive pulmonary disease 7. Chronic pain syndrome 8. Depressive disorder 9. Gastroesophageal reflux disease. POSTOPERATIVE DIAGNOSES: 1. Symptomatic gallstones with acute cholecystitis due to cystic duct impaction 2. Right upper quadrant abdominal pain 3. Hyperbilirubinemia 4. Choledocholithiasis 5. Asthma 6. Chronic obstructive pulmonary disease 7. Chronic pain syndrome 8. Depressive disorder 9. Gastroesophageal reflux disease. 10. Chronic cholecystitis 11. Peritoneal adhesions, right upper quadrant OPERATION: 1. Robotic-assisted da Lola Xi laparoscopic lysis of adhesions, over 50% of the case. 2. Robotic-assisted da Lola Xi laparoscopic cholecystectomy, multiport with FIREFLY ESTIMATED BLOOD LOSS: 5 mL. SPECIMENS REMOVED: Gallbladder. COMPLICATIONS: None. OPERATIVE FINDINGS: 1. Dilated common bile duct. 2. Cystic duct within normal limits. 3. Two (2) clips placed on cystic duct with one along the infundibulum without sequelae 4. Dome down technique performed. 5. Extensive lysis of adhesions performed greater than 50% INDICATIONS: The patient is a 41-year-old female who presents with symptomatic gallstones. Robotic assisted laparoscopic approach was described. Benefits and risks of the procedure including but not limited to bleeding, infection, injury to the biliary tree was described. Informed consent was obtained. DESCRIPTION OF PROCEDURE: Patient was brought to the operating room, placed in supine position. After general induction, the abdomen had been prepped and draped in standard sterile fashion. The robotic da Lola XI system was primed. After a timeout protocol was performed, the patient had been prepped and draped in standard sterile fashion. The patient was injected with indocyanine green. A 5 mm 0 degrees laparoscopic trocar entry was performed along the left upper quadrant. The abdomen insufflated to 15 mmHg pressure which was tolerated well. Diagnostic laparoscopy demonstrated no injury to bowel viscera or mesentery. The liver surface was unremarkable. Next, two 8 mm robotic ports were placed along the right upper abdomen. The camera 8-mm port was maintained along the epigastrium. Another 8 mm port was placed along the left upper abdominal wall after exchanging the 5 mm port. Please note that the ports were placed at least 10 to 15 cm away from the target anatomy of the gallbladder. The robot was docked along the left lateral abdomen. The patient was repositioned in reverse Trendelenburg position. Using a grasper for arm 3, a grasper for arm 4, including hook cautery for arm 1, the robotic system was docked and primed as described. Instruments were interchanged by the home care assistant including hook cautery, Bovie cautery and clip appliers. I had sat at the console. The gallbladder was scarred with peritoneal adhesions. Lysis of adhesions was performed to free the gallbladder from the surrounding tissues for over 50% of the case using hook cautery. Next attention was brought to the infundibulum and cystic structures. Moderate scarring over entire gallbladder with peritoneal adhesions, pericholecystic with features of chronic cholecystitis. Dilated common bile duct was found. The cystic duct was within normal limits. Dome down technique performed from the fundus to the infundibulum. FIREFLY was used to identify the cystic artery and cystic structures. A critical view of safety was obtained. Large PLASTIC clips were used throughout the entire case. Using a clip digital marketing strategist, 3 clips were placed at the junction of the infundibulum and cystic duct. Two (2) clips placed on cystic duct with one along the infundibulum without sequelae. The cystic duct was divided between clips. Next, the cystic artery was similarly clipped and cauterized. Electro-Bovie cautery was used to remove the gallbladder from the hepatic fossa. Hemostasis was checked and found to be adequate. The robot was undocked. I re-scrubbed into the case. Using a 10 mm Endo Catch bag via the left upper quadrant incision, the specimen was removed from the abdominal cavity. All pneumoperitoneum instruments were evacuated from the abdominal cavity. The incisions were reapproximated using 4-0 Monocryl in an interrupted subcuticular fashion. Fascial defects were less than 8 mm in size. Please note along the trocar sites, local anesthetic was placed as a field block prior to insertion of all instruments. Liquid glue was applied to the skin. At the end of the procedure needle, sponge, and instrument count had been verified correct by the instrument and electrical technician. The patient was transferred to postanesthesia care unit in stable condition. Intraoperative films were shared with the patient's family. Plan - Discharge Summary Discharge Rx Participant: No New Discharge Prescriptions: New Simethicone [Gas-X] 125 mg PO AC-TID PRN #20 capsule PRN Reason: Pain Acetaminophen Tab [Tylenol Tab] 1,000 mg PO Q6HR PRN #30 tablet PRN Reason: Pain Continue Albuterol Sulfate [Ventolin HFA] 2 puff INHALATION RT-Q4H PRN PRN Reason: Shortness Of Breath Ibuprofen [Motrin Ib] 800 mg PO Q8H PRN PRN Reason: Fever And/ Or Pain HYDROcodone/APAP 10-325MG [[place] 10-325] 1 tab PO BID PRN PRN Reason: Pain Sertraline HCl [Zoloft] 100 mg PO DAILY Omeprazole [PriLOSEC] 20 mg PO DAILY Montelukast Sodium [Singulair] 10 mg PO DAILY Levocetirizine Dihydrochloride [Xyzal] 5 mg PO DAILY Reina 0.25mg-35mg 1 tab PO DAILY Budesonide/Formoterol Fumarate [Symbicort 80-4.5 Mcg Inhaler] 2 puff INHALATION RT-BID busPIRone HCL 5 mg PO BID Discharge Medication List Albuterol Sulfate [Ventolin HFA] 2 puff INHALATION RT-Q4H PRN 02/11/21 [History] Reina 0.25mg-35mg 1 tab PO DAILY 02/11/21 [History] Budesonide/Formoterol Fumarate [Symbicort 80-4.5 Mcg Inhaler] 2 puff INHALATION RT-BID 06/05/22 [History] HYDROcodone/APAP 10-325MG [[place] 10-325] 1 tab PO BID PRN 06/05/22 [History] Ibuprofen [Motrin Ib] 800 mg PO Q8H PRN 06/05/22 [History] Levocetirizine Dihydrochloride [Xyzal] 5 mg PO DAILY 06/05/22 [History] Montelukast Sodium [Singulair] 10 mg PO DAILY 06/05/22 [History] Omeprazole [PriLOSEC] 20 mg PO DAILY 06/05/22 [History] Sertraline HCl [Zoloft] 100 mg PO DAILY 06/05/22 [History] busPIRone HCL 5 mg PO BID 06/05/22 [History] Acetaminophen Tab [Tylenol Tab] 1,000 mg PO Q6HR PRN #30 tablet 07/14/22 [Rx] Simethicone [Gas-X] 125 mg PO AC-TID PRN #20 capsule 07/14/22 [Rx] Follow up Appointment(s)/Referral(s): Alma Menjivar MD [STAFF PHYSICIAN] - 07/18/22 (Dr calls you, please confirm your telephone number Please be advised that the office will be closed temporarily from July 17 to August 07. ) Patient Instructions/Handouts: *[facility] - Managing Your Pain After Surgery Without Opioids, Low Fat Diet (DC), Laparoscopic Cholecystectomy (DC) Activity/Diet/Wound Care/Special Instructions: Recommend low-fat diet for the next 2 days. No lifting over 10 pounds in 2 weeks until July 28. May shower. No bath tub soaks for two weeks until July 28. Diet as tolerated. Use Tylenol, simethicone and ibuprofen or Aleve scheduled for the next 24-48 hours for best pain relief. Use ice along incisions for today to prevent swelling. Discharge Disposition: HOME SELF-CARE
== END 2022-07-14 15:48 | disposition home or self-care (01) ==
LOC: OR 10:11
PROVIDERS: ATTEND Surgery Plastic and Reconstructive Surgery
DX: K81.2 Acute cholecystitis with chronic cholecystitis (principal); G89.18 Other acute postprocedural pain; J44.9 Chronic obstructive pulmonary disease, unspecified; F41.9 Anxiety disorder, unspecified; F32.A Depression, unspecified; Z87.891 Personal history of nicotine dependence; Z82.49 Family history of ischemic heart disease and other diseases of the circulatory system; Z79.51 Long term (current) use of inhaled steroids; Z79.1 Long term (current) use of non-steroidal anti-inflammatories (NSAID); Z79.899 Other long term (current) drug therapy; Z90.89 Acquired absence of other organs; Z88.5 Allergy status to narcotic agent; Z91.040 Latex allergy status
CPT/HCPCS: 88304; 80053; 85025; 47563; J2250; J1100; J0690; J2405; J3010; J2370; J2704; J1170; J1644; J2001

== ENCOUNTER 2022-08-31 18:36 | Emergency (ER) | payer MEDICARE, OTHER ==
[2022-08-31 18:53] VITALS: TEMP 98.5
--- NOTE | 2022-08-31 19:51 | ED ---
ENT HPI - General Source: patient, RN notes reviewed Mode of arrival: ambulatory Limitations: no limitations <Greta Grider - Last Filed: 08/31/22 19:49> <Simone Hermosillo - Last Filed: 08/31/22 22:52> - General Chief complaint: ENT Stated complaint: R ear and and L shoulder pain Time Seen by Provider: 08/31/22 19:49 - History of Present Illness Initial comments: Patient is a 42-year-old female presenting with multiple complaints. Her main complaint is right ear pain. Patient states the ear is draining. States she has history of cellulitis in this ear. She does have history of MRSA. Pain radiates to her jaw and head. She denies fever, chills, nausea, vomiting, dyspnea. Patient also complains of left shoulder pain, no injury. (Greta Grider) - Related Data Home Medications Medication Instructions Recorded Confirmed Albuterol Sulfate [Ventolin HFA] 2 puff INHALATION RT-Q4H PRN 02/11/21 07/14/22 Reina 0.25mg-35mg 1 tab PO DAILY 02/11/21 07/14/22 Budesonide/Formoterol Fumarate 2 puff INHALATION RT-BID 06/05/22 07/14/22 [Symbicort 80-4.5 Mcg Inhaler] HYDROcodone/APAP 10-325MG [[place] 1 tab PO BID PRN 06/05/22 07/11/22 10-325] Ibuprofen [Motrin Ib] 800 mg PO Q8H PRN 06/05/22 07/11/22 Levocetirizine Dihydrochloride 5 mg PO DAILY 06/05/22 07/11/22 [Xyzal] Montelukast Sodium [Singulair] 10 mg PO DAILY 06/05/22 07/11/22 Omeprazole [PriLOSEC] 20 mg PO DAILY 06/05/22 07/14/22 Sertraline HCl [Zoloft] 100 mg PO DAILY 06/05/22 07/14/22 busPIRone HCL 5 mg PO BID 06/05/22 07/11/22 Previous Rx's Medication Instructions Recorded Acetaminophen Tab [Tylenol Tab] 1,000 mg PO Q6HR PRN #30 tablet 07/14/22 Simethicone [Gas-X] 125 mg PO AC-TID PRN #20 capsule 07/14/22 Allergies Allergy/AdvReac Type Severity Reaction Status Date / Time amitriptyline HCl Allergy ANXIETY Verified 08/31/22 18:53 [From Elavil] amoxicillin Allergy Rash/Hives Verified 08/31/22 18:53 latex Allergy Rash/Hives Verified 08/31/22 18:53 codeine AdvReac Chest Pain Verified 08/31/22 18:53 Review of Systems ROS Other: All systems not noted in ROS Statement are negative. <Greta Grider - Last Filed: 08/31/22 19:49> ROS Other: All systems not noted in ROS Statement are negative. <Simone Hermosillo - Last Filed: 08/31/22 22:52> ROS Statement: Those systems with pertinent positive or pertinent negative responses have been documented in the HPI. Past Medical History Past Medical History: Asthma, COPD Additional Past Medical History / Comment(s): back pain, gallstones History of Any Multi-Drug Resistant Organisms: MRSA Date of last positivie culture/infection: 2007 MDRO Source:: ears Past Surgical History: Cholecystectomy, Orthopedic Surgery, Tonsillectomy Additional Past Surgical History / Comment(s): right ankle sx x2, deviated septum procedure Past Anesthesia/Blood Transfusion Reactions: No Reported Reaction Past Psychological History: Anxiety, Depression, PTSD Smoking Status: Former smoker Past Alcohol Use History: None Reported Past Drug Use History: None Reported - Past Family History Sister(s) Family Medical History: Asthma Father Family Medical History: Congestive Heart Failure (CHF) <Greta Grider - Last Filed: 08/31/22 19:49> General Exam Limitations: no limitations <Greta Grider - Last Filed: 08/31/22 19:49> - General Exam Comments Initial Comments: Visual Physical Exam Vital signs reviewed General: Well-appearing, nontoxic, no acute distress. Head: Normocephalic, atraumatic Eyes: PERRLA, EOMI ENT: Airway patent Chest: Nonlabored breathing Skin: No visual rash, normal skin tone Neuro: Alert and oriented 3 Musculoskeletal: No gross abnormalities (Greta Grider) Course Vital Signs 08/31/22 18:50 Temperature 98.5 F Pulse Rate 82 Respiratory 16 Rate Blood Pressure 135/85 O2 Sat by Pulse 96 Oximetry Medical Decision Making - Lab Data Result diagrams: 08/31/22 21:09 08/31/22 21:09 <Simone Hermosillo - Last Filed: 08/31/22 22:52> - Lab Data Lab Results 08/31/22 08/31/22 08/31/22 Range/Units 21:09 21:09 21:09 WBC 9.8 (3.8-10.6) k/uL RBC 4.32 (3.80-5.40) m/uL Hgb 11.8 (11.4-16.0) gm/dL Hct 36.8 (34.0-46.0) % MCV 85.2 (80.0-100.0) fL MCH 27.3 (25.0-35.0) pg MCHC 32.0 (31.0-37.0) g/dL RDW 13.9 (11.5-15.5) % Plt Count 218 (150-450) k/uL MPV 10.5 Neutrophils % 61 % Lymphocytes % 31 % Monocytes % 4 % Eosinophils % 2 % Basophils % 0 % Neutrophils # 6.0 (1.3-7.7) k/uL Lymphocytes # 3.1 (1.0-4.8) k/uL Monocytes # 0.4 (0-1.0) k/uL Eosinophils # 0.2 (0-0.7) k/uL Basophils # 0.0 (0-0.2) k/uL Sodium 141 (137-145) mmol/L Potassium 4.3 (3.5-5.1) mmol/L Chloride 102 (98-107) mmol/L Carbon Dioxide 32 H (22-30) mmol/L Anion Gap 7 mmol/L BUN 9 (7-17) mg/dL Creatinine 0.62 (0.52-1.04) mg/dL Est GFR (CKD-EPI)AfAm >90 (>60 ml/min/1.73 sqM) Est GFR (CKD-EPI)NonAf >90 (>60 ml/min/1.73 sqM) Glucose 90 (74-99) mg/dL Plasma Lactic Acid Jd 0.9 (0.7-2.0) mmol/L Calcium 9.1 (8.4-10.2) mg/dL Total Bilirubin 0.3 (0.2-1.3) mg/dL AST 18 (14-36) U/L ALT 14 (4-34) U/L Alkaline Phosphatase 87 (38-126) U/L Total Protein 7.3 (6.3-8.2) g/dL Albumin 4.1 (3.5-5.0) g/dL Disposition <Greta Grider - Last Filed: 08/31/22 19:49> Is patient prescribed a controlled substance at d/c from ED?: No Time of Disposition: 22:45 <Simone Hermosillo - Last Filed: 08/31/22 22:52> Clinical Impression: Sore throat, Otitis media, Otitis externa, Referred otalgia, Right otitis externa Disposition: HOME SELF-CARE Condition: Good Instructions (If sedation given, give patient instructions): Earache (ED), Ear Infection (ED), Barotitis Media (ED), Swimmer's Ear (ED) Referrals: Alex Ryan MD [STAFF PHYSICIAN] - 1-2 days
--- NOTE | 2022-08-31 21:14 | XR ---
PROCEDURE: XR shoulder complete LT - 3V DATE AND TIME: 08/31/2022 7:58 PM CLINICAL INDICATION: PHH; pain TECHNIQUE: Department protocol COMPARISON: None FINDINGS: There is no fracture or malalignment. The soft tissues are unremarkable. IMPRESSION: NO ACUTE PROCESS.
[2022-08-31 21:34] LABS: Basophils % (A) 0 %; Eosinophils # (A) 0.2 k/uL (0-0.7); Eosinophils % (A) 2 %; HCT 36.8 % (34.0-46.0); HGB 11.8 gm/dL (11.4-16.0); Lymphocytes # (A) 3.1 k/uL (1.0-4.8); Lymphocytes % (A) 31 %; MCH 27.3 pg (25.0-35.0); MCV 85.2 fL (80.0-100.0); Mean Platelet Volume 10.5; Monocytes # (A) 0.4 k/uL (0-1.0); Monocytes % (A) 4 %; Neutrophils % (A) 61 %; Platelet Count 218 k/uL (150-450); RBC 4.32 m/uL (3.80-5.40); RDW 13.9 % (11.5-15.5); WBC 9.8 k/uL (3.8-10.6)
[2022-08-31 21:40] LABS: ALT 14 U/L (4-34); AST 18 U/L (14-36); African American GFR (CKD) >90 (>60 ml/min/1.73 sqM); Albumin 4.1 g/dL (3.5-5.0); Alkaline Phosphatase 87 U/L (38-126); Anion Gap 7 mmol/L; Blood Urea Nitrogen 9 mg/dL (7-17); Calcium 9.1 mg/dL (8.4-10.2); Carbon Dioxide 32 mmol/L (22-30); Chloride 102 mmol/L (98-107); Glucose 90 mg/dL (74-99); Non-African American GFR(CKD) >90 (>60 ml/min/1.73 sqM); Potassium 4.3 mmol/L (3.5-5.1); Sodium 141 mmol/L (137-145); Total Bilirubin 0.3 mg/dL (0.2-1.3); Total Protein 7.3 g/dL (6.3-8.2)
[2022-08-31] MEDS ORDERED: CIPROFLOXACIN-DEXAMETH 0.3-0.1% DROPS 7.5 ML BTL BOTH EARS STA (22:50)
[2022-08-31] MEDS ORDERED: LEVOFLOXACIN 750 MG TAB PO STA (22:50)
[2022-08-31 23:24] VITALS: BP 128/85; PULSE 78; RESP 17
== END 2022-08-31 23:24 | disposition home or self-care (01) ==
LOC: EC 18:36
DX: J02.9 Acute pharyngitis, unspecified (principal); H60.91 Unspecified otitis externa, right ear; H66.91 Otitis media, unspecified, right ear; H92.01 Otalgia, right ear; J44.9 Chronic obstructive pulmonary disease, unspecified; F41.9 Anxiety disorder, unspecified; F32.A Depression, unspecified; Z87.891 Personal history of nicotine dependence; Z91.040 Latex allergy status; Z88.5 Allergy status to narcotic agent; Z88.0 Allergy status to penicillin; Z88.8 Allergy status to other drugs, medicaments and biological substances; Z79.899 Other long term (current) drug therapy
CPT/HCPCS: 36415; 80053; 83605; 85025; 99283

== ENCOUNTER 2022-12-03 19:02 | Observation (INO) | payer MEDICARE, OTHER ==
--- NOTE | 2022-12-03 21:22 | ED ---
General Adult HPI - General Chief complaint: Skin/Abscess/Foreign Body Stated complaint: Swelling on face Time Seen by Provider: 12/03/22 20:35 Source: patient Mode of arrival: ambulatory Limitations: no limitations - History of Present Illness Initial comments: 42-year-old female past medical history significant for right-sided facial cellulitis occurring on 06/15 admitted to the ED with a chief complaint of left sided facial pain. Patient states 2 day history of left ear/left sided facial pain and swelling. Since onset reports pain and swelling have increased in severity. Denies fever. Denies chest pain shortness breath. No other complaints. Vision has history of similar in the past. Review at this time showed patient with facial cellulitis admission for IV antibiotics. - Related Data Home Medications Medication Instructions Recorded Confirmed Albuterol Sulfate [Ventolin HFA] 2 puff INHALATION RT-Q4H PRN 02/11/21 07/14/22 Reina 0.25mg-35mg 1 tab PO DAILY 02/11/21 07/14/22 Budesonide/Formoterol Fumarate 2 puff INHALATION RT-BID 06/05/22 07/14/22 [Symbicort 80-4.5 Mcg Inhaler] HYDROcodone/APAP 10-325MG [[place] 1 tab PO BID PRN 06/05/22 07/11/22 10-325] Ibuprofen [Motrin Ib] 800 mg PO Q8H PRN 06/05/22 07/11/22 Levocetirizine Dihydrochloride 5 mg PO DAILY 06/05/22 07/11/22 [Xyzal] Montelukast Sodium [Singulair] 10 mg PO DAILY 06/05/22 07/11/22 Omeprazole [PriLOSEC] 20 mg PO DAILY 06/05/22 07/14/22 Sertraline HCl [Zoloft] 100 mg PO DAILY 06/05/22 07/14/22 busPIRone HCL 5 mg PO BID 06/05/22 07/11/22 Previous Rx's Medication Instructions Recorded Acetaminophen Tab [Tylenol Tab] 1,000 mg PO Q6HR PRN #30 tablet 07/14/22 Simethicone [Gas-X] 125 mg PO AC-TID PRN #20 capsule 07/14/22 Levofloxacin [Levaquin] 500 mg PO DAILY 7 Days #7 tab 08/31/22 Allergies Allergy/AdvReac Type Severity Reaction Status Date / Time amitriptyline HCl Allergy ANXIETY Verified 12/03/22 19:11 [From Elavil] amoxicillin Allergy Rash/Hives Verified 12/03/22 19:11 latex Allergy Rash/Hives Verified 12/03/22 19:11 codeine AdvReac Chest Pain Verified 12/03/22 19:11 Review of Systems ROS Statement: Those systems with pertinent positive or pertinent negative responses have been documented in the HPI. ROS Other: All systems not noted in ROS Statement are negative. Past Medical History Past Medical History: Asthma, COPD Additional Past Medical History / Comment(s): 2002, 2010 History of Any Multi-Drug Resistant Organisms: MRSA Date of last positivie culture/infection: 2007 MDRO Source:: ears Past Surgical History: Orthopedic Surgery, Tonsillectomy Additional Past Surgical History / Comment(s): right ankle sx x 2, deviated sept um procedure Past Anesthesia/Blood Transfusion Reactions: No Reported Reaction Past Psychological History: Anxiety, Depression, PTSD Smoking Status: Former smoker Past Alcohol Use History: None Reported Past Drug Use History: None Reported - Past Family History Sister(s) Family Medical History: Asthma Father Family Medical History: Congestive Heart Failure (CHF) General Exam Limitations: no limitations General appearance: alert, in no apparent distress Head exam: Present: other (Other ear erythematous with area of erythema, warmth, swelling on the left side of the face approximately 6 x 4 cm. Tender submental/submandibular lymph nodes with area of erythema underneath the chin.) ENT exam: Present: other (Poor dentition. ) Respiratory exam: Present: normal lung sounds bilaterally Cardiovascular Exam: Present: regular rate, normal rhythm GI/Abdominal exam: Present: soft Neurological exam: Present: alert, oriented X3 Skin exam: Present: warm, dry Course Vital Signs 12/03/22 19:09 Temperature 99 F Pulse Rate 91 Respiratory 18 Rate Blood Pressure 140/82 O2 Sat by Pulse 97 Oximetry Medical Decision Making - Medical Decision Making Was pt. sent in by a medical professional or institution (, PA, SENIOR MARKETING SPECIALIST, urgent ca re, hospital, or custodial...) When possible be specific @ -No Did you speak to anyone other than the patient for history (EMS, parent, family, police, friend...)? What history was obtained from this source @ -No Did you review nursing and triage notes (agree or disagree)? Why? @ -I reviewed and agree with nursing and triage notes Were old charts reviewed (outside hosp., previous admission, EMS record, old EKG, old radiological studies, urgent care reports/EKG's, custodial records)? Report findings @ -No old charts were reviewed Differential Diagnosis (chest pain, altered mental status, abdominal pain women, abdominal pain men, vaginal bleeding, weakness, fever, dyspnea, syncope, headache, dizziness, GI bleed, back pain, seizure, CVA, palpatations, mental health, musculoskeletal)? @ -Facial cellulitis, MRSA, sialadenitis. This is not meant to be an all- inclusive list. EKG interpreted by me (3pts min.). @ -None X-rays interpreted by me (1pt min.). @ -None done CT interpreted by me (1pt min.). @ -CT shows no evidence of abscess formation. U/S interpreted by me (1pt. min.). @ -None done What testing was considered but not performed or refused? (CT, X-rays, U/S, labs)? Why? @ -None What meds were considered but not given or refused? Why? @ -None Did you discuss the management of the patient with other professionals (professionals i.e. , PA, SENIOR MARKETING SPECIALIST, lab, RT, psych nurse, social insurance analyst, survey superintendent, teacher, mortgage loan officer, director of casework department)? Give summary @ -Discussed with Patricia price [facility] who accepted admission. Was smoking cessation discussed for >3mins.? @ -No Was critical care preformed (if so, how long)? @ -No Were there social determinants of health that impacted care today? How? (Homelessness, low income, unemployed, alcoholism, drug addiction, transportation, low edu. Level, literacy, decrease access to med. care, penitentiary, rehab)? @ -No Was there de-escalation of care discussed even if they declined (Discuss DNR or withdrawal of care, Hospice)? DNR status @ -No What co-morbidities impacted this encounter? (DM, HTN, Smoking, COPD, CAD, Cancer, CVA, ARF, Chemo, Hep., AIDS, mental health diagnosis, sleep apnea, morbid obesity)? @ -None Was patient admitted / discharged? Hospital course, mention meds given and route, prescriptions, significant lab abnormalities, going to OR and other pertinent info. @ -Admission. Abs showed no elevation in white count and labs otherwise unremarkable. CT shows no evidence of abscess formation. However, history of MRSA and history of similar symptoms in the past requiring IV antibiotic treatment. With rapid extension of pain, swelling, erythema patient will be admitted for IV antibiotics with consult to infectious disease. Undiagnosed new problem with uncertain prognosis? @ -No Drug Therapy requiring intensive monitoring for toxicity (Heparin, Nitro, Insulin, Cardizem)? @ -No Were any procedures done? @ -No Diagnosis/symptom? @ -Facial cellulitis Acute, or Chronic, or Acute on Chronic? @ -Acute Uncomplicated (without systemic symptoms) or Complicated (systemic symptoms)? @ -Complicated Side effects of treatment? @ -No Exacerbation, Progression, or Severe Exacerbation? @ -No Poses a threat to life or bodily function? How? (Chest pain, [place], [place], pneumonia, PE, COPD, DKA, ARF, appy, cholecystitis, CVA, Diverticulitis, Homicidal, Suicidal, threat to staff... and all critical care pts) @ -No - Lab Data Result diagrams: 12/03/22 21:28 12/03/22 21:28 Lab Results 12/03/22 12/03/22 12/03/22 Range/Units 21:28 21:28 21:28 WBC 10.4 (3.8-10.6) k/uL RBC 3.81 (3.80-5.40) m/uL Hgb 10.5 L (11.4-16.0) gm/dL Hct 32.4 L (34.0-46.0) % MCV 85.0 (80.0-100.0) fL MCH 27.5 (25.0-35.0) pg MCHC 32.3 (31.0-37.0) g/dL RDW 14.8 (11.5-15.5) % Plt Count 188 (150-450) k/uL MPV 9.7 Neutrophils % 74 % Lymphocytes % 19 % Monocytes % 4 % Eosinophils % 2 % Basophils % 0 % Neutrophils # 7.7 (1.3-7.7) k/uL Lymphocytes # 2.0 (1.0-4.8) k/uL Monocytes # 0.4 (0-1.0) k/uL Eosinophils # 0.2 (0-0.7) k/uL Basophils # 0.0 (0-0.2) k/uL Hypochromasia Slight Sodium 137 (137-145) mmol/L Potassium 3.7 (3.5-5.1) mmol/L Chloride 99 (98-107) mmol/L Carbon Dioxide 33 H (22-30) mmol/L Anion Gap 5 mmol/L BUN 9 (7-17) mg/dL Creatinine 0.64 (0.52-1.04) mg/dL Est GFR (CKD-EPI)AfAm >90 (>60 ml/min/1.73 sqM) Est GFR (CKD-EPI)NonAf >90 (>60 ml/min/1.73 sqM) Glucose 117 H (74-99) mg/dL Plasma Lactic Acid Jd 1.3 (0.7-2.0) mmol/L Calcium 8.6 (8.4-10.2) mg/dL Total Bilirubin 0.3 (0.2-1.3) mg/dL AST 17 (14-36) U/L ALT 15 (4-34) U/L Alkaline Phosphatase 80 (38-126) U/L Total Protein 6.6 (6.3-8.2) g/dL Albumin 3.6 (3.5-5.0) g/dL Disposition Clinical Impression: Facial cellulitis Disposition: ADMITTED IP TO THIS HOSP Referrals: Raegan Herr DO [Primary Care Provider] - 1-2 days Time of Disposition: 23:22
[2022-12-03] MEDS ORDERED: KETOROLAC 15 MG/ML 1 ML VIAL IVP STA (21:24)
[2022-12-03 21:42] LABS: Basophils % (A) 0 %; Eosinophils # (A) 0.2 k/uL (0-0.7); Eosinophils % (A) 2 %; HCT 32.4 % (34.0-46.0); HGB 10.5 gm/dL (11.4-16.0); Hypochromasia Slight; Lymphocytes % (A) 19 %; MCH 27.5 pg (25.0-35.0); MCHC 32.3 g/dL (31.0-37.0); Mean Platelet Volume 9.7; Monocytes # (A) 0.4 k/uL (0-1.0); Monocytes % (A) 4 %; Neutrophils # (A) 7.7 k/uL (1.3-7.7); Neutrophils % (A) 74 %; Platelet Count 188 k/uL (150-450); RBC 3.81 m/uL (3.80-5.40); RDW 14.8 % (11.5-15.5); WBC 10.4 k/uL (3.8-10.6)
[2022-12-03 21:52] LABS: ALT 15 U/L (4-34); AST 17 U/L (14-36); African American GFR (CKD) >90 (>60 ml/min/1.73 sqM); Albumin 3.6 g/dL (3.5-5.0); Alkaline Phosphatase 80 U/L (38-126); Anion Gap 5 mmol/L; Blood Urea Nitrogen 9 mg/dL (7-17); Calcium 8.6 mg/dL (8.4-10.2); Carbon Dioxide 33 mmol/L (22-30); Chloride 99 mmol/L (98-107); Glucose 117 mg/dL (74-99); Non-African American GFR(CKD) >90 (>60 ml/min/1.73 sqM); Potassium 3.7 mmol/L (3.5-5.1); Sodium 137 mmol/L (137-145); Total Bilirubin 0.3 mg/dL (0.2-1.3); Total Protein 6.6 g/dL (6.3-8.2)
--- NOTE | 2022-12-03 22:11 | CT ---
EXAMINATION TYPE: CT soft tissue neck w con CT DLP: 301.5 mGycm, Automated exposure control for dose reduction was used. DATE OF EXAM: 12/03/2022 9:55 PM COMPARISON: 06/05/2022. CLINICAL INDICATION:Female, 42 years old with history of r/o facial cellulitis w/ abscess; PHH, left sided facial swelling TECHNIQUE: Standard enhanced CT of the neck. Axial sections with coronal and sagittal reformats were obtained. Contrast used:100 mL of Isovue 370 with IV Contrast, Oral contrast used: none. FINDINGS: Brain: Visualized portions are grossly unremarkable. Orbits: Unremarkable Sinuses: Grossly unremarkable. Spaces of the neck: Mild Fat stranding changes in the superficial aspect of the left parotid gland. N o obstructing calculus visualized. No evidence for organizing fluid collection. Stable right parotid gland lesion measuring up to 9 mm. Musculoskeletal: No acute osseous pathology. Lymph nodes: Multiple nonenlarged lymph nodes are seen along both anterior chains of the neck. Vascular structures: Visualized major arteries are patent without evidence of aneurysm. Thoracic Inlet/airway: Airway is patent. Accessory fissures are seen bilaterally in the upper lungs. Soft tissues/Thyroid: Thyroid and remainder of the soft tissues are unremarkable. Other: none. IMPRESSION Mild Fat stranding changes superficial to the left parotid gland correlate for sialoadenitis no obstr ucting calculus within the Stensen's duct.
[2022-12-03] MEDS ORDERED: NALOXONE 0.4 MG/ML 1 ML VIAL IV PRN (23:22)
[2022-12-03] MEDS ORDERED: HYDROmorphone 0.5 MG/0.5 ML SYRINGE IVP PRN (23:22)
[2022-12-03] MEDS ORDERED: HYDROmorphone 1 MG/ML 1 ML SYRINGE IVP PRN (23:22)
[2022-12-03] MEDS ORDERED: ACETAMINOPHEN TAB 325 MG TAB PO PRN (23:22)
[2022-12-03] MEDS ORDERED: ONDANSETRON 4 MG/2 ML VIAL IVP PRN (23:22)
[2022-12-04] MEDS: SODIUM CHLORIDE 0.9% 1,000 ML IV SCH ×2 (01:37→13:55)
[2022-12-04] MEDS ORDERED: ALBUTEROL NEBULIZED 2.5 MG/3 ML INHALATION PRN (08:30)
[2022-12-04] MEDS ORDERED: VANCOMYCIN IV PER PHARMACY 1 EACH MISC MISCELLANE PRN (08:31)
[2022-12-04] MEDS: busPIRone HCl 5 MG TAB PO SCH ×2 (09:23→21:37)
[2022-12-04] MEDS: MILI PO SCH (09:23)
[2022-12-04] MEDS: MONTELUKAST 10 MG TAB PO SCH (09:23)
[2022-12-04] MEDS: SERTRALINE 100 MG TAB PO SCH (09:23)
[2022-12-04] MEDS: OXcarbazepine 300 MG TAB PO SCH ×2 (09:23→21:37)
[2022-12-04] MEDS: VANCOMYCIN 1,500 MG in SODIUM CHLORIDE 0.9% 500 ML 500 ML IVPB SCH ×2 (09:24→21:37)
[2022-12-04] MEDS ORDERED: KETOROLAC 15 MG/ML 1 ML VIAL IVP STA (09:30)
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
[2022-12-04] MEDS: PANTOPRAZOLE 40 MG TABLET PO SCH (13:55)
[2022-12-04] MEDS: HYDROcodone/APAP 10-325MG 1 EACH TAB PO PRN (18:13)
[2022-12-04] MEDS: SYMBICORT 80-4.5 MCG INHALER INHALATION SCH (19:50)
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
[2022-12-05] MEDS: SODIUM CHLORIDE 0.9% 1,000 ML IV SCH ×2 (03:30→14:22)
[2022-12-05 06:57] LABS: African American GFR (CKD) >90 (>60 ml/min/1.73 sqM); Anion Gap 5 mmol/L; Blood Urea Nitrogen 6 mg/dL (7-17); Calcium 7.8 mg/dL (8.4-10.2); Carbon Dioxide 27 mmol/L (22-30); Chloride 107 mmol/L (98-107); Glucose 86 mg/dL (74-99); Non-African American GFR(CKD) >90 (>60 ml/min/1.73 sqM); Potassium 3.8 mmol/L (3.5-5.1); Sodium 139 mmol/L (137-145)
[2022-12-05] MEDS: PANTOPRAZOLE 40 MG TABLET PO SCH (07:57)
[2022-12-05] MEDS: SERTRALINE 100 MG TAB PO SCH (07:57)
[2022-12-05] MEDS: OXcarbazepine 300 MG TAB PO SCH ×2 (07:57→21:12)
[2022-12-05] MEDS: MONTELUKAST 10 MG TAB PO SCH (07:57)
[2022-12-05] MEDS: MILI PO SCH (07:58)
[2022-12-05] MEDS: busPIRone HCl 5 MG TAB PO SCH ×2 (08:01→21:12)
[2022-12-05] MEDS: VANCOMYCIN 1,500 MG in SODIUM CHLORIDE 0.9% 500 ML 500 ML IVPB SCH ×3 (08:01→23:21)
[2022-12-05] MEDS: SYMBICORT 80-4.5 MCG INHALER INHALATION SCH ×2 (08:31→19:37)
[2022-12-05 12:01] LABS: Basophils # (A) 0.02 X 10*3/uL (0.00-0.10); Basophils % (A) 0.2 %; Eosinophils # (A) 0.16 X 10*3/uL (0.04-0.35); Eosinophils % (A) 1.9 %; HCT 28.8 % (37.2-46.3); HGB 8.8 d/dL (12.0-15.0); Lymphocytes # (A) 2.21 X 10*3/uL (0.90-5.00); Lymphocytes % (A) 25.7 %; MCH 26.9 pg (27.0-32.0); MCHC 30.6 d/dL (32.0-37.0); MCV 88.1 FL (80.0-97.0); Mean Platelet Volume 13.4 FL (9.5-12.2); Monocytes # (A) 0.52 X 10*3/uL (0.20-1.00); NRBC Per 100 WBC 0 X 10*3/uL (0.00-0.01); Neutrophils # (A) 5.68 X 10*3/uL (1.80-7.70); Platelet Count 186 X 10*3/uL (140-440); RBC 3.27 X 10*6/uL (4.10-5.20); RDW 15.1 % (11.5-14.5); WBC 8.61 X 10*3/uL (4.50-10.00)
[2022-12-05] MEDS: HYDROcodone/APAP 10-325MG 1 EACH TAB PO PRN (17:21)
[2022-12-06] MEDS: SODIUM CHLORIDE 0.9% 1,000 ML IV SCH (03:24)
[2022-12-06] MEDS: PANTOPRAZOLE 40 MG TABLET PO SCH (05:46)
[2022-12-06 06:26] LABS: African American GFR (CKD) >90 (>60 ml/min/1.73 sqM); Non-African American GFR(CKD) >90 (>60 ml/min/1.73 sqM)
[2022-12-06] MEDS ORDERED: VANCOMYCIN TROUGH DUE 1 EACH MISC MISCELLANE ONE (07:00)
[2022-12-06 07:40] VITALS: BP 124/73; PULSE 69; RESP 16; TEMP 97.8
[2022-12-06] MEDS: VANCOMYCIN 1,500 MG in SODIUM CHLORIDE 0.9% 500 ML 500 ML IVPB SCH (07:45)
[2022-12-06] MEDS: MILI PO SCH (07:46)
[2022-12-06] MEDS: MONTELUKAST 10 MG TAB PO SCH (07:46)
[2022-12-06] MEDS: OXcarbazepine 300 MG TAB PO SCH (07:46)
[2022-12-06] MEDS: busPIRone HCl 5 MG TAB PO SCH (07:46)
[2022-12-06] MEDS: SERTRALINE 100 MG TAB PO SCH (07:46)
--- NOTE | 2022-12-06 08:32 | P.PN ---
Subjective Progress Note Date: 12/05/22 Pt continues on vancomycin, no fevers, chills. She feels her facial swelling is improved today. Objective - Vital Signs Vital signs: Vital Signs Temp 97.8 F 12/06/22 07:00 Pulse 69 12/06/22 07:00 Resp 16 12/06/22 07:00 BP 124/73 12/06/22 07:00 Pulse Ox 95 12/06/22 07:00 FiO2 Intake & Output 12/05/22 12/06/22 12/06/22 18:59 06:59 18:59 Intake Total 118 118 Balance 118 118 Intake: Oral 118 118 Other: # Voids 4 2 # Bowel Movements 2 - Exam Gen: well developed, well nourised NAD CV: RRR Lungs: CTAB Skin: L parotid gland with swelling, no induration - Labs CBC & Chem 7: 12/05/22 06:08 12/06/22 05:37 Labs: Abnormal Lab Results - Last 24 Hours (Table) 12/05/22 12/06/22 Range/Units 06:08 05:37 RBC 3.27 L (4.10-5.20) X 10*6/uL Hgb 8.8 L (12.0-15.0) d/dL Hct 28.8 L (37.2-46.3) % MCH 26.9 L (27.0-32.0) pg MCHC 30.6 L (32.0-37.0) d/dL RDW 15.1 H (11.5-14.5) % MPV 13.4 H (9.5-12.2) FL Creatinine 0.48 L (0.52-1.04) mg/dL Microbiology - Last 24 Hours (Table) 12/04/22 00:13 Blood Culture - Preliminary Blood 12/03/22 23:48 Blood Culture - Preliminary Blood Assessment and Plan Plan: Continue IV vancomycin. ID following. Anticipate discharge next 24 hours
[2022-12-06] MEDS: SYMBICORT 80-4.5 MCG INHALER INHALATION SCH (10:11)
--- NOTE | 2022-12-06 11:05 | P.PN ---
Subjective Progress Note Date: 12/05/22 Principal diagnosis: Left parotitis and facial cellulitis Patient is a 42-year-old female with a past medical history significant for asthma COPD reflux previous history of MRSA infection patient presenting to the ER for evaluation of left parotid area pain swelling and redness that apparently has been getting worse for the last 2 days before presentation to the hospital. Patient did have a series suggestive parotitis and facial cellulitis but no abscess patient did have a previous history of MRSA infection some extent on today's evaluation that is 12/05/2022, the patient denies having any fever and chills, the patient is breathing comfortably the patient left parotid/ facial area swelling redness has decreased as well as the pain and no nausea no vomiting no abdominal pain and no diarrhea. On today's lab patient did have a white count of 8.61, creatinine 0.53. Blood cultures are pending Objective - Vital Signs Vital signs: Vital Signs Temp 97.7 F 12/05/22 07:00 Pulse 72 12/05/22 07:00 Resp 16 12/05/22 07:00 BP 106/65 12/05/22 07:00 Pulse Ox 96 12/05/22 07:00 FiO2 Intake & Output 12/04/22 12/05/22 18:59 18:59 Intake Total 118 118 Balance 118 118 Intake: Oral 118 118 Other: # Voids 4 # Bowel Movements 2 - Exam GENERAL DESCRIPTION: Middle-aged female lying in bed in no distress HEENT: [No facial area swelling redness has decreased RESPIRATORY SYSTEM: Unlabored breathing , decreased breath sounds at bases HEART: S1 S2 regular rate and rhythm , ABDOMEN: Soft , no tenderness EXTREMITIES: No edema feet - Labs CBC & Chem 7: 12/05/22 06:08 12/06/22 05:37 Labs: Abnormal Lab Results - Last 24 Hours (Table) 12/05/22 12/06/22 Range/Units 06:08 05:37 RBC 3.27 L (4.10-5.20) X 10*6/uL Hgb 8.8 L (12.0-15.0) d/dL Hct 28.8 L (37.2-46.3) % MCH 26.9 L (27.0-32.0) pg MCHC 30.6 L (32.0-37.0) d/dL RDW 15.1 H (11.5-14.5) % MPV 13.4 H (9.5-12.2) FL Creatinine 0.48 L (0.52-1.04) mg/dL Microbiology - Last 24 Hours (Table) 12/04/22 00:13 Blood Culture - Preliminary Blood 12/03/22 23:48 Blood Culture - Preliminary Blood Assessment and Plan (1) Parotitis Current Visit: Yes Status: Acute Code(s): K11.20 - SIALOADENITIS, UNSPECIFIED SNOMED Code(s): 68480448 (2) Facial cellulitis Current Visit: Yes Status: Acute Code(s): L03.211 - CELLULITIS OF FACE SNOMED Code(s): 349125355 Plan: 1patient presented to hospital with left parotid area pain swelling redness concerning for parotitis and facial cellulitis likely from gram-positive skin etelvina in this patient who did have a previous history of MRSA infection possible likely pathogen. 2patient seemed to have show some clinical, reviewed with the patient on vancomycin pharmacy to dose while waiting for the cultures to finalize Dictation was produced using [employer] dictation software. please excuse any grammatical, word or spelling errors. Time with Patient: Less than 30
--- NOTE | 2022-12-06 13:22 | P.PN ---
Subjective Progress Note Date: 12/06/22 Principal diagnosis: Left parotitis and facial cellulitis Patient is a 42-year-old female with a past medical history significant for asthma COPD reflux previous history of MRSA infection patient presenting to the ER for evaluation of left parotid area pain swelling and redness that apparently has been getting worse for the last 2 days before presentation to the hospital. Patient did have a series suggestive parotitis and facial cellulitis but no abscess patient did have a previous history of MRSA infection On today's evaluation that is 12/06/2022, the patient remains to be afebrile, the patient is breathing comfortably on room air, the patient left parotid/ facial area swelling redness has decreased in intensity as well as the pain and the patient denies nausea no vomiting no abdominal pain and no diarrhea. On today's lab patient did have a white count of 8.61, creatinine 0.53 as of yesterday, creatinine was 0.4A today. Blood cultures are so far negative Objective - Vital Signs Vital signs: Vital Signs Temp 97.8 F 12/06/22 07:00 Pulse 69 12/06/22 07:00 Resp 16 12/06/22 07:00 BP 124/73 12/06/22 07:00 Pulse Ox 95 12/06/22 07:00 FiO2 Intake & Output 12/05/22 12/06/22 12/06/22 18:59 06:59 18:59 Intake Total 118 118 Balance 118 118 Intake: Oral 118 118 Other: # Voids 4 2 # Bowel Movements 2 - Exam GENERAL DESCRIPTION: Middle-aged female lying in bed in no distress HEENT: [No facial area swelling redness has decreased RESPIRATORY SYSTEM: Unlabored breathing , decreased breath sounds at bases HEART: S1 S2 regular rate and rhythm , ABDOMEN: Soft , no tenderness EXTREMITIES: No edema feet - Labs CBC & Chem 7: 12/05/22 06:08 12/06/22 05:37 Labs: Abnormal Lab Results - Last 24 Hours (Table) 12/05/22 12/06/22 Range/Units 06:08 05:37 RBC 3.27 L (4.10-5.20) X 10*6/uL Hgb 8.8 L (12.0-15.0) d/dL Hct 28.8 L (37.2-46.3) % MCH 26.9 L (27.0-32.0) pg MCHC 30.6 L (32.0-37.0) d/dL RDW 15.1 H (11.5-14.5) % MPV 13.4 H (9.5-12.2) FL Creatinine 0.48 L (0.52-1.04) mg/dL Microbiology - Last 24 Hours (Table) 12/04/22 00:13 Blood Culture - Preliminary Blood 12/03/22 23:48 Blood Culture - Preliminary Blood Assessment and Plan (1) Parotitis Current Visit: Yes Status: Acute Code(s): K11.20 - SIALOADENITIS, UNSPECIFIED SNOMED Code(s): 46716114 (2) Facial cellulitis Current Visit: Yes Status: Acute Code(s): L03.211 - CELLULITIS OF FACE SNOMED Code(s): 973462579 Plan: 1patient presented to hospital with left parotid area pain swelling redness concerning for parotitis and facial cellulitis likely from gram-positive skin etelvina in this patient who did have a previous history of MRSA infection possible likely pathogen. 2patient seemed to have shown clinical improvement, blood culture has been negative so far patient will be able to finish therapy with oral Bactrim DS 10 days prescription was sent to the pharmacy Dictation was produced using [employer]junky dictation software. please excuse any grammatical, word or spelling errors. Time with Patient: Less than 30
== END 2022-12-06 13:38 | disposition home or self-care (01) ==
LOC: EC 19:02 → 6NMEDSUR 22:56
PROVIDERS: ADMIT Family Medicine; ATTEND Family Medicine
DX: L03.211 Cellulitis of face (principal); K11.20 Sialoadenitis, unspecified; J44.9 Chronic obstructive pulmonary disease, unspecified; L30.9 Dermatitis, unspecified; K21.9 Gastro-esophageal reflux disease without esophagitis; G89.29 Other chronic pain; M54.9 Dorsalgia, unspecified; E66.9 Obesity, unspecified; Z68.31 Body mass index [BMI] 31.0-31.9, adult; F32.9 Major depressive disorder, single episode, unspecified; F43.10 Post-traumatic stress disorder, unspecified; F41.9 Anxiety disorder, unspecified; Z79.51 Long term (current) use of inhaled steroids; Z79.899 Other long term (current) drug therapy; Z88.5 Allergy status to narcotic agent; Z88.0 Allergy status to penicillin; Z88.8 Allergy status to other drugs, medicaments and biological substances; Z91.040 Latex allergy status; Z86.14 Personal history of Methicillin resistant Staphylococcus aureus infection; Z87.891 Personal history of nicotine dependence; Z98.890 Other specified postprocedural states; Z82.5 Family history of asthma and other chronic lower respiratory diseases; Z82.49 Family history of ischemic heart disease and other diseases of the circulatory system; Z90.49 Acquired absence of other specified parts of digestive tract
CPT/HCPCS: 96376; 96361 ×3; 96365; 96366 ×3; 96375; 99284; 36415; 94640 ×4; 80053; 80048; 82565; 83605; 85025 ×2; 80202; 87040 ×2; 70491; G0378 ×4; J3370 ×3; J1885 ×2; Q9967

== ENCOUNTER → 2022-12-15 | Outpatient (CLI) | payer MEDICARE, OTHER ==
--- NOTE | 2022-12-18 11:39 | MM ---
Reason for Exam: Screening (asymptomatic). Last mammogram was performed 1 year(s) and 1 month(s) ago. Patient History: Menarche at age 10. First Full-Term at age 22. Patient has history of breast feeding. Currently using Hormonal Contraceptives, starting at age 11. Risk Values: Wendy 5 year model risk: 0.7%. NCI Lifetime model risk: 8.7%. Prior Study Comparison: 10/19/2017 Bilateral Diagnostic Mammogram, [facility]. 10/21/2021 Bilateral MG 3D screening mammo w/cad, [facility]. Tissue Density: There are scattered fibroglandular densities. Findings: Analyzed By CAD. There is no suspicious group of microcalcifications or new suspicious mass in either breast. Overall Assessment: Negative, BI-RAD 1 Management: Screening Mammogram of both breasts in 1 year. . Patient should continue monthly self-breast exams. A clinical breast exam by your physician is recommended on an annual basis. This exam should not preclude additional follow-up of suspicious palpable abnormalities. Note on Wendy scores and lifetime risk: 1. A Wendy score greater than 3% is considered moderate risk. If this is the case, consider specialist referral to assess eligibility for a risk reducing agent. 2. If overall lifetime risk for the development of breast cancer is 20% or higher, the patient may qualify for future screening with alternating mammogram and breast MRI. Electronically signed and approved by: Harry Lugo M.D. Radiologis
== END | disposition home or self-care (01) ==
LOC: RADMAMWWP 15:28
PROVIDERS: ATTEND Family Medicine
DX: Z12.31 Encounter for screening mammogram for malignant neoplasm of breast (principal)
CPT/HCPCS: 77063; 77067

== ENCOUNTER → 2023-01-31 | Outpatient (CLI) | payer MEDICARE, OTHER ==
--- NOTE | 2023-01-31 09:51 | US ---
EXAMINATION TYPE: US carotid duplex BILAT DATE OF EXAM: 01/31/2023 COMPARISON: NONE CLINICAL INDICATION: Female, 42 years old with history of R42 DIZZINESS AND GIDDINESS; Patient states she sometimes doesn't feel "right". No HTN. TECHNIQUE: Carotid duplex ultrasound examination. Indirect Doppler criteria was utilized. FINDINGS: EXAM MEASUREMENTS: RIGHT: Peak Systolic Velocity (PSV) cm/sec ----- Right CCA: 77.6 ----- Right ICA: 96.9 ----- Right ECA: 121.0 ICA/CCA ratio: 1.2 RIGHT: End Diastole cm/sec ----- Right CCA: 25.9 ----- Right ICA: 32.2 ----- Right ECA: 32.1 LEFT: Peak Systolic Velocity (PSV) cm/sec ----- Left CCA: 73.2 ----- Left ICA: 95.6 ----- Left ECA: 81.4 ICA/CCA ratio: 1.3 LEFT: End Diastole cm/sec ----- Left CCA: 29.2 ----- Left ICA: 32.2 ----- Left ECA: 20.6 VERTEBRALS (direction of flow): Right Vertebral: Antegrade Left Vertebral: Antegrade Rhythm: Normal DENTURE WAXER NOTES: No plaque, wall thickening, elevated velocities or significant stenosis. IMPRESSION: No evidence for hemodynamically significant stenosis. Criteria for Assigning % of Stenosis / Diameter reduction (Estimation based on the indirect measurements of the internal carotid artery velocities (ICA PSV). 1. Normal (no stenosis)=ICA PSV < 125 cm/s: ratio < 2.0: ICA EDV<40 cm/s. 2. Less than 50% stenosis=ICA PSV < 125 cm/s: ratio < 2.0: ICA EDV<40 cm/s. 3. 50 to 69% stenosis=ICA PSV of 125 to 230 cm/s: ration 2.0 ? 4.0: ICA EDV 40-100 cm/s. 4. Greater than 70% stenosis to near occlusion= ICA PSV > 230 cm/s: ratio > 4.0: ICA EDV > 100 cm/s. 5. Near occlusion= ICA PSV velocities may be low or undetectable: variable ratio and ICA EDV. 6. Total occlusion=unable to detect flow.
== END | disposition home or self-care (01) ==
LOC: RADUSWWP 09:12
PROVIDERS: ATTEND Physical Medicine & Rehabilitation Pain Medicine
DX: R42 Dizziness and giddiness (principal)
CPT/HCPCS: 93880

== ENCOUNTER 2023-02-07 02:28 | Observation (INO) | payer MEDICARE, OTHER ==
[2023-02-07] MEDS ORDERED: HYDROcodone/APAP 5-325MG 1 EACH TAB PO STA (03:31)
--- NOTE | 2023-02-07 03:38 | ED ---
General Adult HPI - General Chief complaint: ENT Stated complaint: Ear Pain Time Seen by Provider: 02/07/23 03:16 Source: patient Mode of arrival: ambulatory Limitations: no limitations - History of Present Illness Initial comments: Dictation was produced using [employer] dictation software. please excuse any grammatical, word or spelling errors. Chief Complaint: 42-year-old male presents with bilateral ear pain History of Present Illness: Patient is a 42-year-old female she presents with bilateral ear pain. Patient states that her pain has been ongoing for several days. States that she's been admitted for something similar to this in the past. Apparently she's been evaluated multiple occasions by infectious disease and ENT and there is no apparent cause for her was causing her symptoms. Patient has any fever or chills or night sweats states that she does feel very uncomfortable. Denies any mastoid pain. She concerned that she may need to be admitted again for this. The ROS documented in this emergency department record has been reviewed and confirmed by me. Those systems with pertinent positive or negative responses have been documented in the HPI. All other systems are other negative and/or noncontributory. - Related Data Home Medications Medication Instructions Recorded Confirmed Albuterol Sulfate [Ventolin HFA] 2 puff INHALATION RT-Q4H PRN 02/11/21 12/04/22 Reina 0.25mg-35mg 1 tab PO DAILY 02/11/21 12/04/22 Budesonide/Formoterol Fumarate 2 puff INHALATION RT-BID 06/05/22 12/04/22 [Symbicort 80-4.5 Mcg Inhaler] HYDROcodone/APAP 10-325MG [[place] 1 tab PO BID PRN 06/05/22 12/04/22 10-325] Ibuprofen [Motrin Ib] 800 mg PO Q8H PRN 06/05/22 12/04/22 Levocetirizine Dihydrochloride 5 mg PO DAILY 06/05/22 12/04/22 [Xyzal] Montelukast Sodium [Singulair] 10 mg PO DAILY 06/05/22 12/04/22 Omeprazole [PriLOSEC] 20 mg PO DAILY 06/05/22 12/04/22 busPIRone HCL 5 mg PO BID 06/05/22 12/04/22 Azelastine HCl [Astelin Nasal 1 spray NASAL BID PRN 12/04/22 12/04/22 [place]lin] OXcarbazepine [Trileptal] 300 mg PO BID 12/04/22 12/04/22 Sertraline [Zoloft] 100 mg PO DAILY 12/04/22 12/04/22 Previous Rx's Medication Instructions Recorded Sulfamethox-Tmp 800-160Mg [Bactrim 1 tab PO Q12HR #20 tab 12/06/22 DS 800-160 mg] Allergies Allergy/AdvReac Type Severity Reaction Status Date / Time amoxicillin Allergy Rash/Hives Verified 02/07/23 02:53 latex Allergy Rash/Hives Verified 02/07/23 02:53 amitriptyline HCl AdvReac ANXIETY Verified 02/07/23 02:53 [From Elavil] codeine AdvReac Chest Pain Verified 02/07/23 02:53 Review of Systems ROS Statement: Those systems with pertinent positive or pertinent negative responses have been documented in the HPI. ROS Other: All systems not noted in ROS Statement are negative. Past Medical History Past Medical History: Asthma, COPD, GERD/Reflux Additional Past Medical History / Comment(s): right facial cellulitis in 05/2022 History of Any Multi-Drug Resistant Organisms: MRSA Date of last positivie culture/infection: 2007 MDRO Source:: ears Past Surgical History: Cholecystectomy, Orthopedic Surgery, Tonsillectomy Additional Past Surgical History / Comment(s): right ankle sx x 2, deviated septum procedure Past Anesthesia/Blood Transfusion Reactions: No Reported Reaction Past Psychological History: Anxiety, Depression, PTSD Smoking Status: Former smoker Past Alcohol Use History: None Reported Past Drug Use History: None Reported - Past Family History Sister(s) Family Medical History: Asthma Father Family Medical History: Congestive Heart Failure (CHF) General Exam - General Exam Comments Initial Comments: PHYSICAL EXAM: General Impression: Alert and oriented x3, not in acute distress HEENT: Normocephalic atraumatic, extra-ocular movements intact, pupils equal and reactive to light bilaterally, mucous membranes moist, swollen edematous ext ernal ear with pain with ambulation of pinna Cardiovascular: Heart regular rate and rhythm Chest: Able to complete full sentences, no retractions, no tachypnea Abdomen: abdomen soft, non-tender, non-distended, no organomegaly Musculoskeletal: Pulses present and equal in all extremities, no peripheral edema Motor: no focal deficits noted Neurological: CN II-XII grossly intact, no focal motor or sensory deficits noted Skin: Intact with no visualized rashes Psych: Normal affect and mood Limitations: no limitations Course Vital Signs 02/07/23 02:50 Temperature 97.9 F Pulse Rate 88 Respiratory 18 Rate Blood Pressure 163/92 O2 Sat by Pulse 97 Oximetry Medical Decision Making - Medical Decision Making Was pt. sent in by a medical professional or institution (, [facility], [employer], urgent care, hospital, or [facility]...) When possible be specific @ -No Did you speak to anyone other than the patient for history (EMS, parent, family, police, friend...)? What history was obtained from this source @ -No Did you review nursing and triage notes (agree or disagree)? Why? @ -I reviewed and agree with nursing and triage notes Were old charts reviewed (outside hosp., previous admission, EMS record, old EKG, old radiological studies, urgent care reports/EKG's, [facility] records)? Report findings @ -Prior charting was reviewed showing the patient was admitted: Once ago for facial cellulitis that infectious disease that was from MRSA Differential Diagnosis (chest pain, altered mental status, abdominal pain women, abdominal pain men, vaginal bleeding, musculoskeletal, weakness, fever, dyspnea, syncope, headache, dizziness, GI bleed, back pain, seizure, CVA, palpatations, mental health)? @ -not applicable EKG interpreted by me (3pts min.). @ -None done X-rays interpreted by me (1pt min.). @ -None done CT interpreted by me (1pt min.). @ -None done U/S interpreted by me (1pt. min.). @ -None done What testing was considered but not performed or refused? (CT, X-rays, U/S, labs)? Why? @ -None What meds were considered but not given or refused? Why? @ -None Did you discuss the management of the patient with other professionals (professionals i.e. [facility] Arvizu, [employer], lab, RT, psych nurse, addiction social worker, conservation biology professor, t eacher, life science technical officer, telehealth case manager)? Give summary @ - discussed with hospitalist for observation admission Was smoking cessation discussed for >3mins.? @ -No Was critical care preformed (if so, how long)? @ -No Were there social determinants of health that impacted care today? How? ( Homelessness, low income, unemployed, alcoholism, drug addiction, transportation, low edu. Level, literacy, decrease access to med. care, senior care, rehab)? @ -No Was there de-escalation of care discussed even if they declined (Discuss DNR or withdrawal of care, Hospice)? DNR status @ -No What co-morbidities impacted this encounter? (DM, HTN, Smoking, COPD, CAD, Cancer, CVA, ARF, Chemo, Hep., AIDS, mental health diagnosis, sleep apnea, morbid obesity)? @ -None Was patient admitted / discharged? Hospital course, mention meds given and route, prescriptions, significant lab abnormalities, going to OR and other pertinent info. @ -2-year-old female presents to the emergency department for bilateral ear pain. Clinical presentation suggests bilateral otitis externa. Vital signs are stable. Patient is not in a high risk features per she has no history of diabetes or immunocompromised state. Vital signs stable. Labs unremarkable. Patient do not feel comfortable being discharged. She states that she is failing outpatient treatment. Her symptoms not improving with eardrops. She preferred to be admitted with evaluation by infectious disease. Patient admitted observation. Undiagnosed new problem with uncertain prognosis? @ -No Drug Therapy requiring intensive monitoring for toxicity (Heparin, Nitro, Insulin, Cardizem)? @ -No Were any procedures done? @ -No Diagnosis/symptom? Acute, or Chronic, or Acute on Chronic? Uncomplicated (without systemic symptoms) or Complicated (systemic symptoms)? @ -Otitis externa, bilateral Side effects of treatment? @ -No Exacerbation, Progression, or Severe Exacerbation? @ -No Poses a threat to life or bodily function? How? (Chest pain, [place], NH, pneumonia, PE, COPD, DKA, ARF, appy, cholecystitis, CVA, Diverticulitis, Homicidal, Suicidal, threat to staff... and all critical care pts) @ -yes - Lab Data Result diagrams: 02/07/23 03:53 02/07/23 03:53 Lab Results 02/07/23 02/07/23 Range/Units 03:53 03:53 WBC 10.5 (3.8-10.6) k/uL RBC 3.86 (3.80-5.40) m/uL Hgb 10.4 L (11.4-16.0) gm/dL Hct 32.1 L (34.0-46.0) % MCV 83.3 (80.0-100.0) fL MCH 27.0 (25.0-35.0) pg MCHC 32.4 (31.0-37.0) g/dL RDW 17.3 H (11.5-15.5) % Plt Count 247 (150-450) k/uL MPV 9.4 Neutrophils % 76 % Lymphocytes % 19 % Monocytes % 3 % Eosinophils % 1 % Basophils % 0 % Neutrophils # 8.0 H (1.3-7.7) k/uL Lymphocytes # 2.0 (1.0-4.8) k/uL Monocytes # 0.3 (0-1.0) k/uL Eosinophils # 0.1 (0-0.7) k/uL Basophils # 0.0 (0-0.2) k/uL Hypochromasia Slight Anisocytosis Slight Sodium 138 (137-145) mmol/L Potassium 4.2 (3.5-5.1) mmol/L Chloride 104 (98-107) mmol/L Carbon Dioxide 27 (22-30) mmol/L Anion Gap 7 mmol/L BUN 10 (7-17) mg/dL Creatinine 0.52 (0.52-1.04) mg/dL Est GFR (CKD-EPI)AfAm >90 (>60 ml/min/1.73 sqM) Est GFR (CKD-EPI)NonAf >90 (>60 ml/min/1.73 sqM) Glucose 112 H (74-99) mg/dL Calcium 8.9 (8.4-10.2) mg/dL Disposition Clinical Impression: Otitis externa Disposition: ADMITTED IP TO THIS HOSP Condition: Fair Referrals: Raegan Herr DO [Primary Care Provider] - 1-2 days Decision Time: 04:51
[2023-02-07 04:13] LABS: Anisocytosis Slight; Basophils % (A) 0 %; Eosinophils # (A) 0.1 k/uL (0-0.7); Eosinophils % (A) 1 %; HCT 32.1 % (34.0-46.0); HGB 10.4 gm/dL (11.4-16.0); Hypochromasia Slight; Lymphocytes % (A) 19 %; MCHC 32.4 g/dL (31.0-37.0); MCV 83.3 fL (80.0-100.0); Mean Platelet Volume 9.4; Monocytes # (A) 0.3 k/uL (0-1.0); Monocytes % (A) 3 %; Neutrophils % (A) 76 %; Platelet Count 247 k/uL (150-450); RBC 3.86 m/uL (3.80-5.40); RDW 17.3 % (11.5-15.5); WBC 10.5 k/uL (3.8-10.6)
[2023-02-07 04:23] LABS: African American GFR (CKD) >90 (>60 ml/min/1.73 sqM); Anion Gap 7 mmol/L; Blood Urea Nitrogen 10 mg/dL (7-17); Calcium 8.9 mg/dL (8.4-10.2); Carbon Dioxide 27 mmol/L (22-30); Chloride 104 mmol/L (98-107); Glucose 112 mg/dL (74-99); Non-African American GFR(CKD) >90 (>60 ml/min/1.73 sqM); Potassium 4.2 mmol/L (3.5-5.1); Sodium 138 mmol/L (137-145)
[2023-02-07] MEDS ORDERED: HYDROcodone/APAP 5-325MG 1 EACH TAB PO PRN (04:40)
[2023-02-07] MEDS ORDERED: NALOXONE 0.4 MG/ML 1 ML VIAL IV PRN (04:40)
[2023-02-07] MEDS: SODIUM CHLORIDE 0.9% 1,000 ML IV SCH (04:53)
[2023-02-07] MEDS ORDERED: SULFAMETHOX-TMP 800-160MG 1 EACH TAB PO SCH (09:00)
[2023-02-07] MEDS: LORATADINE 10 MG TAB PO SCH (09:00)
[2023-02-07] MEDS: SERTRALINE 100 MG TAB PO SCH (09:01)
[2023-02-07] MEDS: PANTOPRAZOLE 40 MG TABLET PO SCH (09:01)
[2023-02-07] MEDS: MONTELUKAST 10 MG TAB PO SCH (09:01)
[2023-02-07] MEDS: busPIRone HCl 5 MG TAB PO SCH ×2 (09:04→21:22)
[2023-02-07] MEDS: OXcarbazepine 300 MG TAB PO SCH ×2 (09:04→21:22)
[2023-02-07] MEDS ORDERED: VANCOMYCIN IV PER PHARMACY 1 EACH MISC MISCELLANE PRN (11:27)
[2023-02-07] MEDS: VANCOMYCIN 1,500 MG in SODIUM CHLORIDE 0.9% 500 ML 500 ML IVPB SCH ×2 (13:39→21:21)
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
[2023-02-08 07:45] LABS: Anisocytosis Slight; Basophils % (A) 0 %; Eosinophils # (A) 0.1 k/uL (0-0.7); Eosinophils % (A) 1 %; HCT 32.3 % (34.0-46.0); HGB 10.2 gm/dL (11.4-16.0); Hypochromasia Slight; Lymphocytes # (A) 1.8 k/uL (1.0-4.8); Lymphocytes % (A) 20 %; MCH 26.9 pg (25.0-35.0); MCHC 31.7 g/dL (31.0-37.0); MCV 84.7 fL (80.0-100.0); Monocytes # (A) 0.4 k/uL (0-1.0); Monocytes % (A) 4 %; Neutrophils # (A) 6.6 k/uL (1.3-7.7); Neutrophils % (A) 73 %; Platelet Count 235 k/uL (150-450); RBC 3.82 m/uL (3.80-5.40); RDW 17.3 % (11.5-15.5); WBC 9.1 k/uL (3.8-10.6)
[2023-02-08] MEDS: HYDROcodone/APAP 10-325MG 1 EACH TAB PO PRN ×2 (08:10→20:04)
[2023-02-08] MEDS: SERTRALINE 100 MG TAB PO SCH (08:11)
[2023-02-08] MEDS: busPIRone HCl 5 MG TAB PO SCH ×2 (08:11→20:05)
[2023-02-08] MEDS: MONTELUKAST 10 MG TAB PO SCH (08:11)
[2023-02-08] MEDS: PANTOPRAZOLE 40 MG TABLET PO SCH (08:11)
[2023-02-08] MEDS: OXcarbazepine 300 MG TAB PO SCH ×2 (08:11→20:05)
[2023-02-08] MEDS: LORATADINE 10 MG TAB PO SCH (08:11)
[2023-02-08 08:15] LABS: ALT 12 U/L (4-34); AST 16 U/L (14-36); African American GFR (CKD) >90 (>60 ml/min/1.73 sqM); Albumin 3.4 g/dL (3.5-5.0); Alkaline Phosphatase 84 U/L (38-126); Anion Gap 10 mmol/L; Blood Urea Nitrogen 9 mg/dL (7-17); C Reactive Protein 5.1 mg/dL (<1.0); Calcium 8.8 mg/dL (8.4-10.2); Carbon Dioxide 25 mmol/L (22-30); Chloride 104 mmol/L (98-107); Glucose 82 mg/dL (74-99); Non-African American GFR(CKD) >90 (>60 ml/min/1.73 sqM); Potassium 4.3 mmol/L (3.5-5.1); Sodium 139 mmol/L (137-145); Total Bilirubin 0.3 mg/dL (0.2-1.3); Total Protein 6.4 g/dL (6.3-8.2)
[2023-02-08] MEDS: VANCOMYCIN 1,500 MG in SODIUM CHLORIDE 0.9% 500 ML 500 ML IVPB SCH ×3 (11:31→20:31)
[2023-02-08] MEDS: SODIUM CHLORIDE 0.9% 1,000 ML IV SCH (16:37)
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
--- NOTE | 2023-02-08 22:03 | P.PN ---
Subjective Progress Note Date: 02/08/23 She is feeling improved today with IV abx, less pain and not as swollen. No fever overnight. Objective - Vital Signs Vital signs: Vital Signs Temp 98.1 F 02/08/23 19:25 Pulse 73 02/08/23 19:25 Resp 18 02/08/23 19:56 BP 126/77 02/08/23 19:25 Pulse Ox 98 02/08/23 19:25 FiO2 Intake & Output 02/08/23 02/08/23 02/09/23 06:59 18:59 06:59 Intake Total 740 Balance 740 Intake: Intake, IV Titration 500 Amount Vancomycin 1,500 mg In 500 Sodium Chloride 0.9% 500 ml 500 ml @ 167 mls/hr IVPB Q8H [facility] Rx#: [id number] Oral 240 Other: # Voids 1 1 - Exam CV: RRR, no murmur Lungs; CTAB Skin: facial erythema diminished - Labs CBC & Chem 7: 02/08/23 06:28 02/08/23 06:28 Labs: Abnormal Lab Results - Last 24 Hours (Table) 02/08/23 02/08/23 Range/Units 06:28 06:28 Hgb 10.2 L (11.4-16.0) gm/dL Hct 32.3 L (34.0-46.0) % RDW 17.3 H (11.5-15.5) % C-Reactive Protein 5.1 H (<1.0) mg/dL Albumin 3.4 L (3.5-5.0) g/dL Assessment and Plan Plan: Continue with current regimen, ID following. Discharge planning
--- NOTE | 2023-02-08 23:48 | P.PN ---
Subjective Progress Note Date: 02/08/23 Principal diagnosis: L otitis externa/facial cellulitis Patient is a 42-year-old female with a past medical history significant for recurrent cellulitis and history of MRSA infection presented to hospital with increasing pain and swelling to the left ear and left side of the facial area patient has been diagnosed with a left otitis externa and facial cellulitis. On today's evaluation that is 02/08/2023 the patient denies having any fever or any chills the patient left ear and facial area swelling redness has decreased currently with open wound or any drainage no chest pain shortness of breath or cough no abdominal pain or diarrhea labs reviewed , Cultures pending Objective - Vital Signs Vital signs: Vital Signs Temp 97.8 F 02/08/23 04:00 Pulse 76 02/08/23 04:00 Resp 18 02/08/23 04:00 BP 115/71 02/08/23 04:00 Pulse Ox 95 02/07/23 19:51 FiO2 Intake & Output 02/07/23 02/08/23 02/08/23 18:59 06:59 18:59 Intake Total 500 240 Balance 500 240 Weight 83.915 kg Intake: Intake, IV Titration 500 Amount Vancomycin 1,500 mg In 500 Sodium Chloride 0.9% 500 ml 500 ml @ 167 mls/hr IVPB Q8H [facility] Rx#: [id number] Oral 240 Other: # Voids 3 1 - Exam GENERAL DESCRIPTION: Middle-age female up in the room in no distress HEENT: Left ear and facial area redness has decreased in intensity RESPIRATORY SYSTEM: Unlabored breathing , decreased breath sounds at bases HEART: S1 S2 regular rate and rhythm ,no loud murmurs ABDOMEN: Soft , no tenderness EXTREMITIES: No edema feet - Labs CBC & Chem 7: 02/08/23 06:28 02/08/23 06:28 Labs: Abnormal Lab Results - Last 24 Hours (Table) 02/08/23 02/08/23 Range/Units 06:28 06:28 Hgb 10.2 L (11.4-16.0) gm/dL Hct 32.3 L (34.0-46.0) % RDW 17.3 H (11.5-15.5) % C-Reactive Protein 5.1 H (<1.0) mg/dL Albumin 3.4 L (3.5-5.0) g/dL Assessment and Plan (1) Otitis externa Current Visit: Yes Status: Acute Code(s): H60.90 - UNSPECIFIED OTITIS EXTERNA, UNSPECIFIED EAR SNOMED Code(s): 0640266 (2) Facial cellulitis Current Visit: No Status: Acute Code(s): L03.211 - CELLULITIS OF FACE SNOMED Code(s): 812531208 (3) Failure of outpatient treatment Current Visit: No Status: Acute Code(s): Z78.9 - OTHER SPECIFIED HEALTH STATUS SNOMED Code(s): 185683405 Plan: 1patient present to hospital with left ear and facial pain swelling redness with concern for left otitis externa and a complaint of facial cellulitis likely from gram-positive skin etelvina in this patient who do have a history of MRSA skin and soft tissue infection likely the infecting pathogen 2-Patient blood cultures currently pending CRP was mildly elevated white count is normal. 3patient seem to have shown some clinical improvement we will continue the vancomycin for another 24 hours before transitioning her to oral antibiotics. Multiple questions concern answered Dictation was produced using [employer] software. please excuse any grammatical, word or spelling errors.
[2023-02-09] MEDS ORDERED: VANCOMYCIN TROUGH DUE 1 EACH MISC MISCELLANE ONE (03:00)
[2023-02-09] MEDS: VANCOMYCIN 1,500 MG in SODIUM CHLORIDE 0.9% 500 ML 500 ML IVPB SCH (04:03)
[2023-02-09 04:54] LABS: African American GFR (CKD) >90 (>60 ml/min/1.73 sqM); Non-African American GFR(CKD) >90 (>60 ml/min/1.73 sqM)
[2023-02-09] MEDS: SODIUM CHLORIDE 0.9% 1,000 ML IV SCH (05:30)
[2023-02-09] MEDS: LORATADINE 10 MG TAB PO SCH (08:28)
[2023-02-09] MEDS: SERTRALINE 100 MG TAB PO SCH (08:28)
[2023-02-09] MEDS: HYDROcodone/APAP 10-325MG 1 EACH TAB PO PRN (08:28)
[2023-02-09] MEDS: OXcarbazepine 300 MG TAB PO SCH (08:28)
[2023-02-09] MEDS: PANTOPRAZOLE 40 MG TABLET PO SCH (08:28)
[2023-02-09] MEDS: MONTELUKAST 10 MG TAB PO SCH (08:31)
[2023-02-09] MEDS: busPIRone HCl 5 MG TAB PO SCH (08:31)
[2023-02-09] MEDS ORDERED: VANCOMYCIN 1,250 MG in SODIUM CHLORIDE 0.9% 250 ML IVPB SCH (12:00)
[2023-02-09 14:04] VITALS: BP 106/67; PULSE 80; RESP 16; TEMP 99
--- NOTE | 2023-02-09 15:57 | P.PN ---
Subjective Progress Note Date: 02/09/23 Principal diagnosis: L otitis externa/facial cellulitis Patient is a 42-year-old female with a past medical history significant for recurrent cellulitis and history of MRSA infection presented to hospital with increasing pain and swelling to the left ear and left side of the facial area patient has been diagnosed with a left otitis externa and facial cellulitis. On today's evaluation that is 02/09/2023, the patient remains to be afebrile the patient is breathing comfortably on room air without need for supplemental oxygen, the patient denies chest pain, shortness of breath or cough, patient denies nausea/vomiting , no diarrhea and no abdominal pain, left ear and facial swelling redness has resolved White count of 9.1, creatinine 0.61 Objective - Vital Signs Vital signs: Vital Signs Temp 97.9 F 02/09/23 06:52 Pulse 77 02/09/23 06:52 Resp 18 02/09/23 06:52 BP 113/77 02/09/23 06:52 Pulse Ox 95 02/09/23 06:52 FiO2 Intake & Output 02/08/23 02/09/23 02/09/23 18:59 06:59 18:59 Intake Total 740 Balance 740 Intake: Intake, IV Titration 500 Amount Vancomycin 1,500 mg In 500 Sodium Chloride 0.9% 500 ml 500 ml @ 167 mls/hr IVPB Q8H [facility] Rx#: [id number] Oral 240 Other: # Voids 1 0 - Exam GENERAL DESCRIPTION: Middle-age female up in the room in no distress HEENT: Left ear and facial area redness has resolved RESPIRATORY SYSTEM: Unlabored breathing , decreased breath sounds at bases HEART: S1 S2 regular rate and rhythm ,no loud murmurs ABDOMEN: Soft , no tenderness EXTREMITIES: No edema feet - Labs CBC & Chem 7: 02/08/23 06:28 02/09/23 03:56 Assessment and Plan (1) Otitis externa Status: Acute Code(s): H60.90 - UNSPECIFIED OTITIS EXTERNA, UNSPECIFIED EAR SNOMED Code(s): 9035161 (2) Facial cellulitis Status: Acute Code(s): L03.211 - CELLULITIS OF FACE SNOMED Code(s): 402384316 (3) Failure of outpatient treatment Status: Acute Code(s): Z78.9 - OTHER SPECIFIED HEALTH STATUS SNOMED Code(s): 354930566 Plan: 1patient present to hospital with left ear and facial pain swelling redness with concern for left otitis externa and a complaint of facial cellulitis likely from gram-positive skin etelvina in this patient who do have a history of MRSA skin and soft tissue infection likely the infecting pathogen 2-Patient has shown some clinical improvement we will finish therapy with Bactrim DS one twice a day for 10 days prescription was sent to the pharmacy Dictation was produced using [employer] dictation software. please excuse any grammatical, word or spelling errors. Time with Patient: Less than 30
== END 2023-02-09 15:01 | disposition home or self-care (01) ==
LOC: EC 02:28 → 1SOBS 04:40 → 4SSUR 02-08 17:09
PROVIDERS: ADMIT Family Medicine; ATTEND Family Medicine
DX: L03.211 Cellulitis of face (principal); H60.93 Unspecified otitis externa, bilateral; J44.9 Chronic obstructive pulmonary disease, unspecified; K21.9 Gastro-esophageal reflux disease without esophagitis; F41.1 Generalized anxiety disorder; F32.A Depression, unspecified; F43.10 Post-traumatic stress disorder, unspecified; E66.9 Obesity, unspecified; Z68.32 Body mass index [BMI] 32.0-32.9, adult; Z79.51 Long term (current) use of inhaled steroids; Z79.899 Other long term (current) drug therapy; Z88.0 Allergy status to penicillin; Z91.040 Latex allergy status; Z88.5 Allergy status to narcotic agent; Z88.8 Allergy status to other drugs, medicaments and biological substances; Z86.14 Personal history of Methicillin resistant Staphylococcus aureus infection; Z87.2 Personal history of diseases of the skin and subcutaneous tissue; Z90.49 Acquired absence of other specified parts of digestive tract; Z98.890 Other specified postprocedural states; Z87.891 Personal history of nicotine dependence; Z82.5 Family history of asthma and other chronic lower respiratory diseases; Z82.49 Family history of ischemic heart disease and other diseases of the circulatory system
CPT/HCPCS: 96366 ×3; 96365; 99284; 36415; 80053; 80048; 82565; 85025 ×2; 80202; 86140; G0378 ×4; J3370 ×3

== ENCOUNTER → 2023-07-12 | Outpatient (CLI) | payer MEDICARE, OTHER ==
--- NOTE | 2023-07-12 09:36 | US ---
EXAMINATION TYPE: US liver DATE OF EXAM: 07/12/2023 COMPARISON: 01/12/2010 CLINICAL INDICATION: Female, 42 years old with history of K76.0 FATTY (CHANGE OF) LIVER, NOT ELSEWHER E CLASS; Patient states she has known fatty liver and is having dominant pain. Pain has started dimin ishing since going on diet. Cholecystectomy 1 year ago. TECHNIQUE: Multiple sonographic images of the right upper quadrant are obtained. FINDINGS: EXAM MEASUREMENTS: Liver Length: 17.2 cm Gallbladder Wall: surgically absent CBD: 1.2 cm Right Kidney: 10.1 x 3.9 x 5.8 cm LICENSED MIDWIFE NOTES:Limited due to midline gas Pancreas: Obscured by bowel gas Liver: Slightly echogenic. Upper limits of normal in size. Gallbladder: Surgically absent Evidence for sonographic De's sign: No CBD: Mildly enlarged for post-cholecystectomy Right Kidney: No hydronephrosis or masses seen as best visualized IMPRESSION: 1. No evidence for acute process. 2. Mild hepatic steatosis
== END | disposition home or self-care (01) ==
LOC: RADUSWWP 07:38
PROVIDERS: ATTEND Surgery Plastic and Reconstructive Surgery
DX: K76.0 Fatty (change of) liver, not elsewhere classified (principal); Z90.49 Acquired absence of other specified parts of digestive tract
CPT/HCPCS: 76705

== ENCOUNTER → 2024-01-01 | Outpatient (CLI) | payer BC, MEDICARE, OTHER ==
--- NOTE | 2024-01-02 17:17 | MM ---
Reason for Exam: Screening (asymptomatic). Last mammogram was performed 1 year(s) and 1 month(s) ago. Patient History: Menarche at age 10. First Full-Term at age 22. Premenopausal. Patient has history of breast feeding. Currently using Hormonal Contraceptives, starting at age 11. Last menstrual period: 12/27/2023 Risk Values: Wendy 5 year model risk: 0.7%. NCI Lifetime model risk: 8.6%. Prior Study Comparison: 10/19/2017 Bilateral Diagnostic Mammogram, [facility]. 10/21/2021 Bilateral MG 3D screening mammo w/cad, [facility]. 12/15/2022 Bilateral MG 3D screening mammo w/cad, [facility]. Tissue Density: There are scattered areas of fibroglandular density. Findings: Analyzed By CAD. Chronic nodularity upper outer quadrant left breast. There is no suspicious group of microcalcifications or new suspicious mass in either breast. Overall Assessment: Benign, BI-RAD 2 Management: Screening Mammogram of both breasts in 1 year. . Patient should continue monthly self-breast exams. A clinical breast exam by your physician is recommended on an annual basis. This exam should not preclude additional follow-up of suspicious palpable abnormalities. Note on Wendy scores and lifetime risk: 1. A Wendy score greater than 3% is considered moderate risk. If this is the case, consider specialist referral to assess eligibility for a risk reducing agent. 2. If overall lifetime risk for the development of breast cancer is 20% or higher, the patient may qualify for future screening with alternating mammogram and breast MRI. Electronically signed and approved by: Eugene Moseley M.D. Radiologist
== END | disposition home or self-care (01) ==
LOC: RADMAMWWP 09:42
PROVIDERS: ATTEND Family Medicine
DX: Z12.31 Encounter for screening mammogram for malignant neoplasm of breast
CPT/HCPCS: 77063; 77067

== ENCOUNTER → 2024-02-08 | Outpatient (CLI) | payer BC, MEDICARE, OTHER ==
--- NOTE | 2024-02-08 11:22 | CT ---
EXAMINATION TYPE: CT abdomen pelvis w con DATE OF EXAM: 02/08/2024 COMPARISON: None HISTORY: pain and constipation CT DLP: 925.4 mGycm Automated exposure control for dose reduction was used. TECHNIQUE: Helical acquisition of images was performed from the lung bases through the pelvis. CONTRAST: Performed with Oral Contrast and with IV Contrast, patient injected with 100 mL of Isovue 300. The lung bases are clear. There is surgical absence of the gallbladder. There is no biliary ductal dilatation. There is no focal mass or organomegaly involving the liver, pancreas, spleen or adrenal glands. There is no solid renal mass or hydronephrosis and there is homogeneous contrast enhancement of the r enal parenchyma. The caliber the abdominal aorta is normal is no retroperitoneal adenopathy or hemorr huma. The bowel loops are normal in caliber and there is no evidence of dilatation or obstruction. No infla mmatory changes are identified in the bowel wall or mesentery. There is no free intraperitoneal air or fluid. No pelvic mass, free fluid, abscess or adenopathy. The osseous structures and soft tissues are intact. IMPRESSION: No significant abnormality seen. [facility], , 02/08/2024 11:19 AM
== END ==
LOC: RADCTMAIN 09:16
PROVIDERS: ATTEND Family Medicine
DX: R10.84 Generalized abdominal pain (principal); Z98.890 Other specified postprocedural states
CPT/HCPCS: 36415; 74177

== ENCOUNTER 2024-04-09 21:37 | Emergency (ER) | payer BC, MEDICARE, OTHER ==
[2024-04-09 21:43] VITALS: TEMP 98.3
--- NOTE | 2024-04-09 22:12 | XR ---
EXAMINATION TYPE: XR hand complete RT DATE OF EXAM: 04/09/2024 9:56 PM COMPARISON: None. CLINICAL INDICATION: Female, 43 years old with history of right hand pain, swelling, punched a wall, pain TECHNIQUE: XR hand complete RT XX views were obtained. FINDINGS: There is no acute fracture/dislocation evident. The joint spaces appear within normal limits. The ov erlying soft tissue appears unremarkable. IMPRESSION: No acute fracture or dislocation. [facility], , 04/09/2024 10:09 PM
[2024-04-09] MEDS: KETOROLAC 15 MG/ML 1 ML VIAL IM STA (22:24)
--- NOTE | 2024-04-09 22:33 | ED ---
Upper Extremity HPI - General Chief Complaint: Extremity Injury, Upper Stated Complaint: Rt Hand Pain Time Seen by Provider: 04/09/24 21:52 Source: patient Mode of arrival: ambulatory Limitations: no limitations - History of Present Illness Initial Comments: 43-year-old female presenting with chief complaint of right hand pain and swelling. Patient was upset and decided to punch a wall. She now has bruising and swelling over the second third and fourth knuckles. She has full range of motion of the hand. No numbness or tingling. - Related Data Home Medications Medication Instructions Recorded Confirmed Albuterol Sulfate [Ventolin HFA] 2 puff INHALATION RT-Q4H PRN 02/11/21 11/06/23 HYDROcodone/APAP 10-325MG [[place] 1 tab PO BID PRN 06/05/22 11/06/23 10-325] Ibuprofen [Motrin Ib] 800 mg PO Q8H PRN 06/05/22 11/06/23 Levocetirizine Dihydrochloride 5 mg PO DAILY 06/05/22 11/06/23 [Xyzal] Montelukast Sodium [Singulair] 10 mg PO DAILY 06/05/22 11/06/23 Omeprazole [PriLOSEC] 20 mg PO DAILY 06/05/22 11/06/23 busPIRone HCL 5 mg PO BID 06/05/22 11/06/23 OXcarbazepine [Trileptal] 300 mg PO BID 12/04/22 11/06/23 Sertraline [Zoloft] 100 mg PO DAILY 12/04/22 11/06/23 Fluticasone/Umeclidin/Vilanter 1 puff INHALATION RT-DAILY 02/07/23 11/06/23 [Trelegy Ellipta 100-62.5-25] Allergies Allergy/AdvReac Type Severity Reaction Status Date / Time amoxicillin Allergy Rash/Hives Verified 04/09/24 21:40 latex Allergy Rash/Hives Verified 11/06/23 12:12 amitriptyline HCl AdvReac ANXIETY Verified 04/09/24 21:40 [From Elavil] codeine AdvReac Chest Pain Verified 04/09/24 21:40 Review of Systems ROS Statement: Those systems with pertinent positive or pertinent negative responses have been documented in the HPI. ROS Other: All systems not noted in ROS Statement are negative. Past Medical History Past Medical History: Asthma, Blood Disorder, COPD, GERD/Reflux Additional Past Medical History / Comment(s): right facial cellulitis in 11/2022. IRON DEFICIENCY ANEMIA. History of Any Multi-Drug Resistant Organisms: MRSA Date of last positivie culture/infection: 2007 MDRO Source:: ears Past Surgical History: Cholecystectomy, Orthopedic Surgery, Tonsillectomy Additional Past Surgical History / Comment(s): right ankle sx x 2, deviated septum procedure Past Anesthesia/Blood Transfusion Reactions: No Reported Reaction Past Psychological History: Anxiety, Depression, PTSD Smoking Status: Former smoker Past Alcohol Use History: None Reported Past Drug Use History: None Reported - Past Family History Sister(s) Family Medical History: Asthma Father Family Medical History: Congestive Heart Failure (CHF) General Exam Limitations: no limitations General appearance: alert, in no apparent distress Head exam: Present: atraumatic, normocephalic, normal inspection Eye exam: Present: normal appearance, EOMI Neck exam: Present: normal inspection. Absent: meningismus Respiratory exam: Absent: respiratory distress Cardiovascular Exam: Present: regular rate Right Hand Wrist exam: Present: full ROM, tenderness, swelling, ecchymosis Vascular: Absent: vascular compromise Neurological exam: Present: alert, oriented X3 Psychiatric exam: Present: normal affect, normal mood Skin exam: Present: warm, dry Course Vital Signs 04/09/24 04/09/24 21:40 22:38 Temperature 98.3 F Pulse Rate 100 77 Respiratory 18 16 Rate Blood Pressure 149/98 119/81 O2 Sat by Pulse 97 95 Oximetry Medical Decision Making - Medical Decision Making Was pt. sent in by a medical professional or institution (, PA, ICU TECH, urgent care, hospital, or long-term...) When possible be specific @ -No Did you speak to anyone other than the patient for history (EMS, parent, family, police, friend...)? What history was obtained from this source @ -No Did you review nursing and triage notes (agree or disagree)? Why? @ -I reviewed and agree with nursing and triage notes Were old charts reviewed (outside hosp., previous admission, EMS record, old E KG, old radiological studies, urgent care reports/EKG's, long-term records)? Report findings @ -No old charts were reviewed Differential Diagnosis (chest pain, altered mental status, abdominal pain women, abdominal pain men, vaginal bleeding, weakness, fever, dyspnea, syncope, headache, dizziness, GI bleed, back pain, seizure, CVA, palpatations, mental health, musculoskeletal)? @ -Differential includes fracture, dislocation, sprain, strain, this is not an all-inclusive list EKG interpreted by me (3pts min.). @ -As above X-rays interpreted by me (1pt min.). @ -X-ray negative for fracture or dislocation CT interpreted by me (1pt min.). @ -None done U/S interpreted by me (1pt. min.). @ -None done What testing was considered but not performed or refused? (CT, X-rays, U/S, labs)? Why? @ -None What meds were considered but not given or refused? Why? @ -None Did you discuss the management of the patient with other professionals (professionals i.e. , PA, ICU TECH, lab, RT, psych nurse, protective services social worker, collections representative, teacher, chief science officer, case hardener)? Give summary @ -No Was smoking cessation discussed for >3mins.? @ -No Was critical care preformed (if so, how long)? @ -No Were there social determinants of health that impacted care today? How? (Homelessness, low income, unemployed, alcoholism, drug addiction, transportation, low edu. Level, literacy, decrease access to med. care, correction, rehab)? @ -No Was there de-escalation of care discussed even if they declined (Discuss DNR or withdrawal of care, Hospice)? DNR status @ -No What co-morbidities impacted this encounter? (DM, HTN, Smoking, COPD, CAD, Cancer, CVA, ARF, Chemo, Hep., AIDS, mental health diagnosis, sleep apnea, morbid obesity)? @ -None Was patient admitted / discharged? Hospital course, mention meds given and route, prescriptions, significant lab abnormalities, going to OR and other pertinent info. @ -43-year-old female presenting with chief complaint of right hand injury. She has some pain and swelling over the knuckles. She is neurovascularly intact. X-ray negative for fracture or dislocation. Patient is educated on today's findings. Educated on supportive management of hematoma. Discharged. Follow-up with PCP. Report back to ER with any new or worsening symptoms. Discussed return parameters and answered all questions. Patient conveyed verbal understanding and agreed to the plan. I discussed this case in detail with my attending Dr. Herr Undiagnosed new problem with uncertain prognosis? @ -No Drug Therapy requiring intensive monitoring for toxicity (Heparin, Nitro, Insulin, Cardizem)? @ -No Were any procedures done? @ -No Diagnosis/symptom? @ -hand injury, hematoma Acute, or Chronic, or Acute on Chronic? @ -Acute Uncomplicated (without systemic symptoms) or Complicated (systemic symptoms)? @ -Uncomplicated Side effects of treatment? @ -No Exacerbation, Progression, or Severe Exacerbation? @ -No Poses a threat to life or bodily function? How? (Chest pain, [place], [place], pneumonia, PE, COPD, DKA, ARF, appy, cholecystitis, CVA, Diverticulitis, Homicidal, Suicidal, threat to staff... and all critical care pts) @ -No Disposition Clinical Impression: Hand injury Disposition: HOME SELF-CARE Condition: Good Instructions (If sedation given, give patient instructions): Hand Sprain (ED) Additional Instructions: Follow-up with PCP. Report back to ER with any new or worsening symptoms. Rest, ice, compress, elevate the hand. Take Motrin and Tylenol as needed for pain control. Is patient prescribed a controlled substance at d/c from ED?: No Referrals: Mony Easton DO [Primary Care Provider] - 1-2 days Time of Disposition: 22:33
[2024-04-09 22:40] VITALS: BP 119/81; PULSE 77; RESP 16
== END 2024-04-09 22:41 | disposition home or self-care (01) ==
LOC: EC 21:37
DX: S69.91XA Unspecified injury of right wrist, hand and finger(s), initial encounter (principal); Z88.0 Allergy status to penicillin; Z88.5 Allergy status to narcotic agent; Z91.040 Latex allergy status; Z88.8 Allergy status to other drugs, medicaments and biological substances; Z87.891 Personal history of nicotine dependence; W22.01XA Walked into wall, initial encounter
CPT/HCPCS: 73130; 99283; 96372; J1885

== ENCOUNTER 2024-07-02 08:12 | Day surgery (SDC) | payer BC, MEDICARE, OTHER ==
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
[2024-07-02] MEDS: LACTATED RINGERS 1,000 ML IV ONE (08:35)
[2024-07-02 08:41] VITALS: TEMP 99
[2024-07-02] MEDS: LACTATED RINGERS 1,000 ML IV SCH (08:47)
[2024-07-02] MEDS ORDERED: PROPOFOL 10 MG/ML 20 ML VIAL IV ONE (08:54)
--- NOTE | 2024-07-02 09:15 | P.PCN ---
Date of Procedure: 07/02/24 Description of Procedure: PREOPERATIVE DIAGNOSIS: Colonoscopy screening. POSTOPERATIVE DIAGNOSIS: Colonoscopy screening. Severe pandiverticulosis OPERATION: Colonoscopy to the cecum, ileocecal valve and appendiceal orifice. SURGEON: Alma Menjivar MD. ANESTHESIA: MAC. INDICATIONS: The patient is a 43-year-old female who presents for colonoscopy screening. Benefits and risks were described and informed consent was obtained. DESCRIPTION OF PROCEDURE: The patient had undergone GoLytely prep. The patient had been brought into the operating room and laid in the left lateral decubitus position. After adequate intravenous sedation, the rectum was examined with 2% lidocaine jelly. External hemorrhoids were encountered. The rectal tone was within normal limits. No lesions were palpated in the rectal vault. An Olympus colonoscope was advanced until the cecum, ileocecal valve and appendiceal orifice were clearly viewed. The prep was excellent. Severe pandiverticulosis was encountered. No colonic polyps were found. No evidence of focal colitis was found. Retroflexion of the scope demonstrated grade 3 internal hemorrhoids without active bleeding or inflammation. The colon was desufflated. The patient had tolerated the procedure well. Withdrawal time was over 6 minutes. FINDINGS: Aronchick preparation quality scale (1-5) Internal hemorrhoids, grade 3 External prolapsed hemorrhoids, grade 3 No arteriovenous malformations. No adenomatous polyps. No focal colitis. Severe pandiverticulosis RECOMMENDATIONS: Lower endoscopy every 10 years, 2034 Plan - Discharge Summary Discharge Rx Participant: No New Discharge Prescriptions: Continue Albuterol Sulfate [Ventolin HFA] 2 puff INHALATION RT-Q4H PRN PRN Reason: Shortness Of Breath HYDROcodone/APAP 10-325MG [[place] 10-325] 1 tab PO BID PRN PRN Reason: Pain Fluticasone/Umeclidin/Vilanter [Trelegy Ellipta 100-62.5-25] 1 puff INHALATION RT-DAILY Escitalopram Oxalate [Lexapro] 20 mg PO DAILY Discharge Medication List Albuterol Sulfate [Ventolin HFA] 2 puff INHALATION RT-Q4H PRN 02/11/21 [History] HYDROcodone/APAP 10-325MG [[place] 10-325] 1 tab PO BID PRN 06/05/22 [History] Fluticasone/Umeclidin/Vilanter [Trelegy Ellipta 100-62.5-25] 1 puff INHALATION RT-DAILY 02/07/23 [History] Escitalopram Oxalate [Lexapro] 20 mg PO DAILY 07/01/24 [History] Follow up Appointment(s)/Referral(s): Alma Menjivar MD [STAFF PHYSICIAN] - As Needed Patient Instructions/Handouts: Diverticulosis Diet (GEN) Activity/Diet/Wound Care/Special Instructions: Repeat colonoscopy 10 years2034 Discharge Disposition: HOME SELF-CARE
[2024-07-02 09:17] VITALS: RESP 16
[2024-07-02 09:31] VITALS: BP 121/76; PULSE 75
== END 2024-07-02 10:26 | disposition home or self-care (01) ==
LOC: ORWHC2ENDO 08:12
PROVIDERS: ATTEND Surgery Plastic and Reconstructive Surgery
DX: Z12.11 Encounter for screening for malignant neoplasm of colon (principal); K21.9 Gastro-esophageal reflux disease without esophagitis; K57.30 Diverticulosis of large intestine without perforation or abscess without bleeding; K64.2 Third degree hemorrhoids; J44.89 Other specified chronic obstructive pulmonary disease; D64.9 Anemia, unspecified; F41.9 Anxiety disorder, unspecified; F43.10 Post-traumatic stress disorder, unspecified; F32.A Depression, unspecified; M54.50 Low back pain, unspecified; Z90.49 Acquired absence of other specified parts of digestive tract; Z98.51 Tubal ligation status; Z90.89 Acquired absence of other organs; Z87.891 Personal history of nicotine dependence; Z82.49 Family history of ischemic heart disease and other diseases of the circulatory system; Z88.0 Allergy status to penicillin; Z91.040 Latex allergy status; Z88.5 Allergy status to narcotic agent; Z79.51 Long term (current) use of inhaled steroids; Z79.899 Other long term (current) drug therapy
CPT/HCPCS: 81025; 45378; J2704

== ENCOUNTER 2024-07-07 01:01 | Emergency (ER) | payer BC, MEDICARE, OTHER ==
[2024-07-07 01:14] VITALS: BP 110/66; PULSE 98; RESP 16; TEMP 101.8
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
[2024-07-07 02:02] LABS: Influenza A Detected (Not Detectd); Influenza B Not Detected (Not Detectd); RSV Not Detected (Not Detectd)
== END 2024-07-07 02:20 | disposition home or self-care (01) ==
LOC: EC 01:01
DX: G89.29 Other chronic pain (principal); J10.1 Influenza due to other identified influenza virus with other respiratory manifestations; J44.9 Chronic obstructive pulmonary disease, unspecified; J45.909 Unspecified asthma, uncomplicated; Z87.891 Personal history of nicotine dependence; Z91.040 Latex allergy status; Z88.5 Allergy status to narcotic agent; Z88.0 Allergy status to penicillin; Z88.8 Allergy status to other drugs, medicaments and biological substances
CPT/HCPCS: 87636; 99283

== ENCOUNTER 2024-10-20 14:40 | Emergency (ER) | payer BC, MEDICARE, OTHER ==
[2024-10-20 14:45] VITALS: TEMP 97.6
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
[2024-10-20 16:36] LABS: Basophils # (A) 0.05 10*3/uL (0.00-0.10); Basophils % (A) 0.5 %; HCT 35.1 % (37.2-46.3); HGB 10.9 g/dL (12.0-15.0); Immature Platelet Fraction 10.5 % (1.1-6.1); Lymphocytes # (A) 2.59 10*3/uL (0.90-5.00); Lymphocytes % (A) 26.9 %; MCH 25.8 pg (27.0-32.0); MCHC 31.1 g/dL (32.0-37.0); MCV 83.2 fL (80.0-97.0); Mean Platelet Volume 13.2 fL (9.5-12.2); Monocytes # (A) 0.41 10*3/uL (0.20-1.00); Monocytes % (A) 4.3 %; Neutrophils # (A) 6.47 10*3/uL (1.80-7.70); Neutrophils % (A) 67.2 %; Platelet Count 223 10*3/uL (140-440); RBC 4.22 10*6/uL (4.10-5.20); RDW 17.2 % (11.5-14.5); WBC 9.63 10*3/uL (4.50-10.00)
[2024-10-20 16:48] LABS: ALT 16 U/L (4-34); AST 21 U/L (14-36); African American GFR (CKD) >90 (>60 ml/min/1.73 sqM); Albumin 4.6 g/dL (3.5-5.0); Alkaline Phosphatase 99 U/L (38-126); Anion Gap 8 mmol/L; Blood Urea Nitrogen 7 mg/dL (7-17); Calcium 9.7 mg/dL (8.4-10.2); Carbon Dioxide 30 mmol/L (22-30); Chloride 102 mmol/L (98-107); Glucose 86 mg/dL (74-99); Non-African American GFR(CKD) >90 (>60 ml/min/1.73 sqM); Potassium 4.2 mmol/L (3.5-5.1); Sodium 140 mmol/L (137-145); Total Bilirubin 0.7 mg/dL (0.2-1.3); Total Protein 7.7 g/dL (6.3-8.2)
[2024-10-20] MEDS: CIPROFLOXACIN-DEXAMETH 0.3-0.1% DROPS 7.5 ML BTL BOTH EARS STA (18:02)
[2024-10-20] MEDS: LEVOFLOXACIN 750 MG TAB PO STA (18:02)
[2024-10-20 18:10] VITALS: BP 151/86; PULSE 90; RESP 18
== END 2024-10-20 18:10 | disposition home or self-care (01) ==
LOC: EC 14:40
DX: H60.93 Unspecified otitis externa, bilateral (principal); Z87.891 Personal history of nicotine dependence; Z88.0 Allergy status to penicillin; Z88.5 Allergy status to narcotic agent; Z91.040 Latex allergy status
CPT/HCPCS: 36415; 80053; 83605; 85025; 99284